=== PATIENT | male | born 1950 | race Caucasian/White ===

== ENCOUNTER 2022-02-11 19:04 | Emergency (ER) | payer MEDICARE, BC, SELFPAY ==
[2022-02-11 19:09] VITALS: BP 128/80; PULSE 107; RESP 20; TEMP 36.6; O2SAT 97; BMI 27.3
--- NOTE | 2022-02-11 20:26 | ED_ITS ---
HPI - Abdominal Pain General Chief Complaint: Abdominal Pain Stated Complaint: Stomach pain reflex Time Seen by Provider: 02/11/22 20:15 History of Present Illness HPI narrative: 72-year-old man presenting to the emergency department accompanied by his significant other with complaint of epigastric area burning pain. Does have a history of GERD and Mims's. Had vomiting starting 2 nights ago the proceeded over the course of the next day. That basically has resolved. Still though complicated by hiccups and this burning discomfort. He will now about every 15 minutes have a force upward that results in more sensation of acid. Was given by his doctor Ora and sucralfate but this has not seemed to make much of a difference. He is only mildly nauseated though at this point. No fever. No hematemesis. No diarrheal though stools were looser. No known sick contacts. Has not really vomited today. No alcohol intake recently. No cardiac history. Still has gallbladder. Anticipating traveling soon to [place]. Related Data Home Medications Medication Instructions Recorded Confirmed atorvastatin 20 mg tablet 20 mg PO HS 02/11/22 02/11/22 esomeprazole magnesium 20 mg 40 mg PO DAILY 02/11/22 02/11/22 capsule,delayed release (Nexium) lisinopril 2.5 mg tablet 2.5 mg PO DAILY 02/11/22 02/11/22 ondansetron 4 mg disintegrating 4 mg PO Q8H PRN 02/11/22 02/11/22 tablet sucralfate 1 gram tablet 1 g PO QID 02/11/22 02/11/22 tadalafil 5 mg tablet 5 mg PO PRN 02/11/22 02/11/22 tolterodine 4 mg capsule,extended 4 mg PO Q24H 02/11/22 02/11/22 release 24 hr Previous Rx's Medication Instructions Recorded lidocaine HCl 2 % mucosal solution 10 ml mucous membrane BID PRN 02/11/22 (Lidocaine Viscous) heartburn #100 mL Allergies Allergy/AdvReac Type Severity Reaction Status Date / Time No Known Drug Allergies Allergy Verified 02/11/22 19:16 Review of Systems Status of ROS Reports: 10 or more systems reviewed and unremarkable except as noted in History and below PFSH PFSH Social History Smoking Status: Light tobacco smoker What tobacco products do you use: cigars Do you use any of these nicotine containing products: None Second hand tobacco smoke exposure: No How often do you have a drink containing alcohol: 2-3 times a week How many standard drinks containing alcohol do you have on a typical day: 1 or 2 How often do you have six or more drinks on one occasion: Never AUDIT-C Alcohol total score: 3 Non-prescribed substance use: denies use Exam Narrative: Exam Narrative: Is pleasant. Calm. Lightly bearded. Oropharynx is moist Breathing easily. Lungs appear to be clear. Cardiovascular was regular rate and rhythm contrary to tachycardia on presentation. No murmur rub or gallop appreciated Abdomen tympanitic across the upper abdomen. Maybe mildly reproducible to palpation in the epigastrium. Otherwise abdomen is soft and nontender. Extremities are without edema. Well perfused peripherally. Const: Vital Signs, click to edit/add: Vital Signs - 24 hr 02/11/22 19:09 Temperature 97.9 F Pulse Rate [Right Pulse Oximeter] 107 H Respiratory Rate 20 Blood Pressure [Le ft Upper Arm] 128/80 Pulse Oximetry 97 Oxygen Delivery Me thod Room Air Documenting provider has reviewed patient's vital signs: yes Course Reevaluation(s) Reevaluation #1: Markedly improved after GI cocktail. No longer has the stomach acid. Did have 1 of those hiccups but it did not create the same symptoms. Time: 21:03 Vital Signs Vital signs: Initial Vital Signs Temperature 97.9 F 02/11/22 19:09 Temperature Source Temporal Artery Scan 02/11/22 19:09 Pulse Rate 107 H 02/11/22 19:09 Respiratory Rate 20 02/11/22 19:09 Blood Pressure 128/80 02/11/22 19:09 Blood Pressure Mean 96 02/11/22 19:09 Blood Pressure Position Sitting 02/11/22 19:09 Pulse Oximetry 97 02/11/22 19:09 Oxygen Delivery Method 02/11/22 19:09 Vital Signs Temperature 97.9 F 02/11/22 19:09 Pulse Rate 107 H 02/11/22 19:09 Respiratory Rate 20 02/11/22 19:09 Blood Pressure 128/80 02/11/22 19:09 Pulse Oximetry 97 02/11/22 19:09 Oxygen Delivery Method 02/11/22 19:09 Temperature 97.9 F 02/11/22 19:09 Pulse Rate 72 02/11/22 21:24 Respiratory Rate 16 02/11/22 21:24 Blood Pressure 132/71 02/11/22 21:24 Pulse Oximetry 98 02/11/22 21:24 Oxygen Delivery Method 02/11/22 21:24 MDM - Abdominal Pain MDM Narrative Medical decision making narrative: Given history I think it is reasonable to trial Zofran and GI cocktail. If this does not help to proceed further. Mr. Patterson is in agreement with this plan. Discharge Plan Discharge Clinical Impression: Heartburn, Hiccups Patient Disposition: Home, Self-Care Condition: Improved Additional Instructions: Consider taking the sucralfate over the next 2 weeks. Otherwise symptom relief can be accomplished with the antacid/anti-gas liquid that you can buy [id number] mixed one-to-one with viscous lidocaine as prescribed here today. You might first try the antacid/anti-gas liquid alone? I would not use this more than twice a day. If you need this though daily over the next week, I would follow up for re-evaluation. Return for intense and unremitting symptoms, repeated vomiting. Prescriptions: New lidocaine HCl [Lidocaine Viscous] 2 % solution 10 ml mucous membrane BID PRN (Reason: heartburn) Qty: 100 0RF Rx Instructions: mix 10 - 15 ml with equal amount of liquid antacid/antigas prn No Action atorvastatin 20 mg tablet 20 mg PO HS Label Comments: TAKE 1 TABLET BY MOUTH AT BEDTIME lisinopril 2.5 mg tablet 2.5 mg PO DAILY Label Comments: TAKE 1 TABLET BY MOUTH ONCE DAILY. esomeprazole magnesium [Nexium] 20 mg capsule,delayed release(DR/EC) 40 mg PO DAILY tadalafil 5 mg tablet 5 mg PO PRN Label Comments: TAKE 1 TABLET BY MOUTH EVERY DAY tolterodine 4 mg capsule,extended release 24hr 4 mg PO Q24H Label Comments: TAKE 1 CAPSULE (4 MG) BY MOUTH ONCE DAILY. ondansetron 4 mg tablet,disintegrating 4 mg PO Q8H PRN sucralfate 1 gram tablet 1 g PO QID Stand Alone Forms: MyHealth Info Instructions
[2022-02-11] MEDS: ONDANSETRON ODT 4 MG TAB PO (20:36)
[2022-02-11] MEDS: GI COCKTAIL (VISC LIDO/ANTACID) 30 ML PO (20:37)
--- OUTSIDE RECORDS SUMMARY | 2022-02-11 21:05 | XMS_ITS | Encounter Summary ---
:1950 Author Organization [facility] Address [address] [address] Care Team Providers Name Role Phone Pierre Evans MD Primary Care Provider Reason for Visit Reason Onset Date Comments Refill 02/22/2021 atorvastatin (LIPITO R) 20 MG tablet Encounter Details Date Type Department Care Team Description 02/22/2021 Refill Pierre Busch R efill (atorvastatin Medicine (LIPITOR) 20 MG tablet) [address] [place], [place] [address] [place] [id number] (Wo rk) Social History Tobacco Use Types Packs/Day Years Used Date Smoking Tobacco: Some Days Cigars Smokeless Tobacco: Never Comments: 1 a day Alcohol Use Standard Drinks/Week Comments Yes 5 (1 standard drink = 0.6 oz pure alcoho l) Sex Assigned at Date Recorded Not on file documented as of this encounter Nursing Notes Catherine Amos RN - 02/25/2021 6:20 AM CDT 90 day supply given per Emergency Refill Standing Order. Catherine Amos RN 02/25/2021, 6:19 AM Interface, Out Surescripts Prov Query - 02/22/2021 11:23 AM CDT atorvastatin (LIPITOR) 20 MG tablet Medication started: 12/06/2018 Last ordered by PIERRE EVANS: 12/16/2019 (434 days ago) QTY: 90, Refills: 0, Sig: take 1 tablet by mouth daily. (unchanged) -> An office visit is overdue (performed over 14 months ago, required every 12 months). Last qualifying visit: 12/16/2019 (with PIERRE EVANS) (A more recent visit (in Family Practice with IRENA SAMAYOA) was found) Next scheduled visit: None Powered by [employer] by [employer], Reference: [id number], 02/22/2021 11:23:05 AM CDT, Pool: PRCTR FP REFILL ([id number]) documented in this encounter Plan of Treatment Not on filedocumented as of this encounter Visit Diagnoses Diagnosis Hyperlipidemia, unspecified hyperlipidem ia type (HRC) documented in this encounter Care Teams Voice Network Engineer Relationship Specialty Start Date End Date Pierre Evans MD PCP - General 08/23/[address] [place], [place] [address] documented as of this encounter
--- OUTSIDE RECORDS SUMMARY | 2022-02-11 21:05 | XMS_ITS | Clinical Summary ---
:1950 Author Organization [facility] Address [address] [place] [address] Care Team Providers Name Role Phone Pierre Evans MD Primary Care Provider Source Comments You are receiving this document as you are listed as the primary care provider,follow-up provider, or the patient has been referred to you for consultation.This is in compliance with the Medicare and Medicaid EHR Incentive Program,which states Providers who transition their patient to another setting of careor provider of care or refers their patient to another provider of care shouldprovide summarycare record for each transition of care or referral. [facility] Allergies No known active allergies Medications Medication Sig Dispensed Refills Start Date End Date Status esomeprazole (NEXIUM) 20 Take 1 capsule 0 11/29/2015 Active MG capsule by mouth 2 times daily (before meals). Tadalafil (CIALIS) 10 MG Take 1 tablet 90 Tablet 0 12/26/2017 Active tabletIndications: 30-60 minutes Erectile dysfunction of prior to sexual organic origin activity. Multiple 0 Active Vitamins-Minerals (CENTRUM SILVER 50+MEN OR) tolterodine (DETROLLA) 4 2 10/21/2018 Active MG 24 hour release capsule Ascorbic Acid (VITAMIN 0 12/15/2019 Active C) 1000 MG tablet lisinopril (ZESTRIL) 2.5 TAKE ONE TABLET 90 Tablet 0 1 Active MG tabletIndications: BY MOUTH EVERY Essential hypertension DAY (HRC) atorvastatin (LIPITOR) Take 1 Tablet by 90 Tablet 0 02/25/2021 Active 20 MG tabletIndications: mouth daily. 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 Recurrent Essential hypertension 04/07/2010 GERD (gastroesophageal reflux disease) History of colonic polyps Overview: Repeat colonoscopy in 2016 ; Personal history of colonic polyps Resolved Problems Problem Noted Date Resolved Date Reflux esophagitis 04/05/2012 02/25/2020 Immunizations Name Administration Dates Next Due Influenza IIV4 (Quadrivalent) 0.5mL (60243) 02/03/2020 PCV13 (Prevnar) 05/23/2017 PPSV23 (Pneumovax) 12/05/2018 TDAP (ADACEL) 11/18/2010 Zoster (Zostavax) 02/06/2012 Zoster RZV (Shingrix) 03/02/2020 Family History Medical History Relation Name Comments Cancer Mother Colon Thyroid Disorder Sister 1 Relation Name Status Comments Father (Age 87) Mother (Age 77) Colon cancer Brother Alive Sister 1 Alive Sister 2 Alive Sister 3 Alive Social History Tobacco Use Types Packs/Day Years Used Date Smoking Tobacco: Some Days Cigars Smokeless Tobacco: Never Comments: 1 a day Alcohol Use Standard Drinks/Week Comments Yes 5 (1 standard drink = 0.6 oz pure alcoho l) Sex Assigned at Date Recorded Not on file Last Filed Vital Signs Vital Sign Reading Time Taken Comments Blood Pressure 128/73 02/25/2020 7:49 AM CDT Pulse 80 02/25/2020 7:49 AM CDT Temperature 36.8 ??C (98.3 ??F) 02/25/2020 7:49 AM CDT Respiratory Rate 14 06/26/2017 9:53 AM CHIEF GREEN OFFICER Oxygen Saturation 95% 04/01/2012 4:45 PM CHIEF GREEN OFFICER Inhaled Oxygen Concentration - - Weight 87.1 kg (192 lb) 02/25/2020 7:49 AM CDT Height 179.1 cm (5' 10.5) 02/25/2020 7:49 AM CDT Body Mass Index 27.16 02/25/2020 7:49 AM CDT Plan of Treatment Health Maintenance Due Date Last Done Comments COVID-19 Vaccine (#1) 1950 DTaP/Tdap/Td (2 - Tdap) 11/18/2020 11/18/2010 Medicare Annual Wellness 12/15/2020 12/16/2019, 12/05/2018 Visit Colonoscopy 03/21/2021 03/21/2016 (Completed), 02/07/2011 (Completed) Influenza (#1) 2022 02/03/2020 Cholesterol 12/15/2024 12/16/2019, 01/23/2019, 12/05/2018, Additional history exists Hep C Screening (Preventive Completed 12/25/2016 Services) Pneumococcal 65+ Yrs Completed 12/05/2018, 05/23/2017 Zoster/Shingles Completed 05/28/2020, 03/02/2020, 02/06/2012 HepA Aged Out No longer eligib le based on patient 's age to complete this topic HepB Aged Out No longer eligib le based on patient 's age to complete this topic Hib Aged Out No longer eligib le based on patient 's age to complete this topic IPV ([place]) Aged Out No longer eligib le based on patient 's age to complete this topic MCV4 Aged Out No longer eligib le based on patient 's age to complete this topic Insurance Payer Benefit Plan / Subscriber ID Effective Dates Phone Addre ss Type Group MEDICARE MEDICARE [id number] 2017-Guy [phone] M [facility] CARE t 67 BCBS BCBS BCBS [place] [id number] 2018-Heladio [phone] [address] [address] Medicare BLUE nt [address] [place] [address] [phone] [phone] [place] ([place]) [address] Corey Patterson Personal/Family Self 1950 [address] [phone] [place], [place] (Work) [address] Care Teams Cheese Cook Relationship Specialty Start Date End Date Pierre Evans MD PCP - General 08/23/[address] [place], [place] [address]
--- OUTSIDE RECORDS SUMMARY | 2022-02-11 21:05 | XMS_ITS | Encounter Summary ---
:1950 Author Organization [facility] Address [address] [address] Care Team Providers Name Role Phone Pierre Evans MD Primary Care Provider Reason for Visit Reason Onset Date Comments Refill 04/29/2021 lisinopril (ZESTRIL) 2.5 MG tablet; atorvastatin (LIPITOR) 20 MG tablet Encounter Details Date Type Department Care Team Description 04/29/2021 Refill [facility] Pierre Evans R efill (lisinopril Medicine (ZESTRIL) 2.5 MG tablet; [address] atorvastatin (LIPITOR) [address] [place], [place] [address] [address] MG tablet) [phone] [place] [address] (Wo rk) Social History Tobacco Use Types Packs/Day Years Used Date Smoking Tobacco: Some Days Cigars Smokeless Tobacco: Never Comments: 1 a day Alcohol Use Standard Drinks/Week Comments Yes 5 (1 standard drink = 0.6 oz pure alcoho l) Sex Assigned at Date Recorded Not on file documented as of this encounter Nursing Notes Pierre Evans MD - 05/03/2021 9:41 AM CST He has established care with a provider where he lives. TESTER Sherron Kirk - 05/03/2021 9:12 AM CST Medication Refill - Overdue for Visit Called patient, was: Successful in reaching patient We recently received a refill request for one of your medications. In order to ensure your medication is safe and effective, your clinician needs to see you at least yearly for an office visit. May I help you schedule that office visit? Patient is due for a(n): office visit Patient no longer receiving care at [facility]: Route to Refill [facility] Pool-PN (P [id number]) TESTER Delaney Mack RN - 05/03/2021 6:40 AM CST Further Assistance Needed on Refill from Government Professor Patient is overdue for Office visit. -> An office visit is overdue (performed 17 months ago, required every 12 months). -> Cr and K are overdue (performed 17 months ago, required every 12 months) Last qualifying visit: 12/16/2019 (with PIERRE EVANS) Next scheduled visit: None Cr: 1.16 mg/dL on 12/16/2019 K: 4.5 mEq/L on 12/16/2019 Please call patient to schedule a Office/Video Visit and document using .NATALIE. After attemptingto schedule patient: Please route to: Pierre Evans MD Requested Prescriptions Pending Prescriptions Disp Refills lisinopril (ZESTRIL) 2.5 MG tablet 90 Tablet 0 Sig: Take 1 Tablet by mouth daily. atorvastatin (LIPITOR) 20 MG tablet 90 Tablet 0 Sig: Take 1 Tablet by mouth daily. TESTER Missy, Taylor Surescripts Prov Query - 04/29/2021 9:38 AM CST atorvastatin (LIPITOR) 20 MG tablet Medication started: 12/06/2018 Last ordered by PIERRE EVANS: 02/25/2021 (63 days ago) QTY: 90, Refills: 0, Sig: take 1 tabletby mouth daily. (unchanged) -> An office visit is overdue (performed 17 months ago, required every 12 months). Last qualifying visit: 12/16/2019 (with PIERRE EVANS) (A more recent visit (in Family Practice with IRENA SAMAYOA) was found) Next scheduled visit: None Powered by [employer] by [employer], Reference: [id number], 04/29/2021 9:38:08 AM Marquis KELLY:JASPER FP REFILL ([id number]) lisinopril (ZESTRIL) 2.5 MG tablet Medication started: 12/23/2015 Last ordered by PIERRE EVANS: 02/21/2021 (67 days ago) QTY: 90, Refills: 0, Sig: take one tablet by mouth every day (changed but equivalent) -> An office visit is overdue (performed 17 months ago, required every 12 months). -> Cr and K are overdue (performed 17 months ago, required every 12 months) Last qualifying visit: 12/16/2019 (with PIERRE EVANS) (A more recent visit (in Family Practice with IRENA SAMAYOA) was found) Next scheduled visit: None Cr: 1.16 mg/dL on 12/16/2019 K: 4.5 mEq/L on 12/16/2019 Powered by [employer] by [employer], Reference: [id number], 04/29/2021 9:38:08 AM FOOD TESTER, Pool:PRCTR FP REFILL ([id number]) TESTER Interface, Out Wesabe Prov Query - 04/29/2021 9:38 AM CST The following lab order(s) may be associated with the following Patient Result Comment (Entered by Pierre Evans MD at 12/16/2019 5:54 PM): PROSTATIC SPECIFIC ANTIGEN(SCREEN) Excellent! Your labs all look great. TESTER documented in this encounter Plan of Treatment Not on filedocumented as of this encounter Visit Diagnoses Diagnosis Hypertension Unspecified essential hypertension Hyperlipidemia, unspecified hyperlipidem ia type (HRC) documented in this encounter Care Teams Resident Care Aide Relationship Specialty Start Date End Date Pierre Evans MD PCP - General 08/23/[address] [place] [address] documented as of this encounter
--- OUTSIDE RECORDS SUMMARY | 2022-02-11 21:05 | XMS_ITS | Encounter Summary ---
:1950 Author Organization [facility] Address [address], [place] [address] Care Team Providers Name Role Phone Pierre Evans MD Primary Care Provider Reason for Visit Reason Comments RESULTS, X-RAY Encounter Details Date Type Department Care Team Description 02/25/2020 Telephone Cnidy Cloud, RESULTS, X-RAY Medicine [facility] [address] [place] [address] [facility] [place] [address] [phone] (Wo rk) Social History Tobacco Use Types Packs/Day Years Used Date Smoking Tobacco: Some Days Cigars Smokeless Tobacco: Never Comments: 1 a day Alcohol Use Standard Drinks/Week Comments Yes 5 (1 standard drink = 0.6 oz pure alcoho l) Sex Assigned at Date Recorded Not on file documented as of this encounter Nursing Notes Cindy Aguilar PA-C - 02/25/2020 1:07 PM CDT Spoke with patient. Some arthritis in the thoracic spine. I am not certain that this is the cause ofyour abdominal pain. I suspect abdominal wall strain due to aggravation with using abdominal muscles. Please monitor symptoms. If they gradually improve and resolve over the next 1-2 weeks, no further evaluation is needed. If you continue to have ongoing or worsening pain, please contact the clinic. Patient verbalizes understanding and agreement plan. documented in this encounter Plan of Treatment Not on filedocumented as of this encounter Visit Diagnoses Not on filedocumented in this encounter Care Teams Asphalt Still Operator Relationship Specialty Start Date End Date Pierre Evans MD PCP - General 08/23/10 [address] [facility] [place] [address] documented as of this encounter
--- OUTSIDE RECORDS SUMMARY | 2022-02-11 21:05 | XMS_ITS | Encounter Summary ---
:1950 Author [facility] Address [address] [place] [address] Care Team Providers Name Role Phone Pierre Evans MD Primary Care Provider Reason for Visit Procedure/Equipment (Routine) - Incomplete Specialty Diagnoses / Procedures Referred By Contact Refer red To Contact Diagnoses Right sided abdominal pain Lauren, Cindy Barnett PA-C Procedures XR Thoracic Spine 2 Views XR Thoracic Spine 3 Views [address] [place] [address] Referral ID Status Reason Start Date Expiration Date Visits V isits Requested Authorized [id number] Incomplete 02/25/2020 05/26/2021 1 1 Encounter Details Date Type Department Care Team Description 02/25/2020 Ancillary Procedure Rice Armstrong, Right si ded Radiology Cindy Barnett PA-C abdominal pain [address] [place] [address] [place] [address] [phone] Social History Tobacco Use Types Packs/Day Years Used Date Smoking Tobacco: Some Days Cigars Smokeless Tobacco: Never Comments: 1 a day Alcohol Use Standard Drinks/Week Comments Yes 5 (1 standard drink = 0.6 oz pure alcoho l) Sex Assigned at Date Recorded Not on file documented as of this encounter Plan of Treatment Not on filedocumented as of this encounter Procedures Procedure Name Priority Date/Time Associated Diagnosis Comme nts XR THORACIC SPINE 2 Routine 02/25/2020 9:12 AM Right sided Re sults for this VIEWS CDT abdominal pain procedure are in the results section. documented in this encounter Results XR Thoracic Spine 2 Views (02/25/2020 9:12 AM CDT) Anatomical Region Laterality Modality Spine, T-Spine Digital Radiography Specimen (Source) Anatomical Collection Method Collection Time Re ceived Time Location / / Volume Laterality 02/25/2020 8:45 AM CDT Impressions 02/25/2020 9:17 AM CDT COMPARISON: ??Thoracic spine MRI from external institution 05/26/2015, chest radiographs from external institution 04/02/2009 FINDINGS: ??2 views were obtained. 12 th oracic type vertebral bodies. No compression fracture deformity is identified. Multilevel degenerative disc disease of eczk-nz-wtogbxgy severity. Procedure Note Gilberto Morse MD - 02/25/2020 IMPRESSION COMPARISON: Thoracic spine MRI from [facility] institution 05/26/2015, chest radiographs from external institution 04/02/2009 FINDINGS: 2 views were obtained. 12 thor acic type vertebral bodies. No compression fracture deformity is identified. Multilevel degenerative disc disease of cxnx-os-rzyasghz severity. Cindy Aguilar PA-C RAD GD documented in this encounter Visit Diagnoses Diagnosis Right sided abdominal pain Abdominal pain, unspecified site documented in this encounter Care Teams Rod Bending Machine Operator Relationship Specialty Start Date End Date Pierre Evans MD PCP - General 08/23/10 [address] [facility] [place] [address] documented as of this encounter
--- OUTSIDE RECORDS SUMMARY | 2022-02-11 21:05 | XMS_ITS | Encounter Summary ---
:1950 [facility] Address [address], [place] [address] Care Team Providers Name Role Phone Pierre Evans MD Primary Care Provider Reason for Visit Reason Comments Refill lisinopril (ZESTRIL) 2.5 MG tablet [Pharmacy Med Name: LISINOPRIL 2.5MG TABS] Encounter Details Date Type Department Care Team Description 02/18/2021 Refill Pierre Busch R efill (lisinopril Medicine (ZESTRIL) 2.5 MG tablet [address] bender [address] [facility] Ordering [Pharmacy Med Name: [place] [phone] LISINOPRIL 2.5MG TABS]) [phone] [place] [address] (Wo rk) Social History Tobacco Use Types Packs/Day Years Used Date Smoking Tobacco: Some Days Cigars Smokeless Tobacco: Never Comments: 1 a day Alcohol Use Standard Drinks/Week Comments Yes 5 (1 standard drink = 0.6 oz pure alcoho l) Sex Assigned at Date Recorded Not on file documented as of this encounter Nursing Notes Catherine Amos RN - 02/21/2021 2:23 PM CDT 90 day supply given per Emergency Refill Standing Order. Catherine Amos RN 02/21/2021, 2:23 PM Interface, Out [employer] Prov Query - 02/18/2021 10:12 AM CDT lisinopril (ZESTRIL) 2.5 MG tablet [Pharmacy Med Name: LISINOPRIL 2.5MG TABS] Medication started: 12/23/2015 Last ordered by PIERRE EVANS: 12/16/2019 (430 days ago) QTY: 90, Refills: 0, Sig: take 1 tablet by mouth daily. (changed but equivalent) -> An office visit is overdue (performed over 14 months ago, required every 12 months). -> Cr and K are overdue (performed over 14 months ago, required every 12 months) Last qualifying visit: 12/16/2019 (with PIERRE EVANS) (A more recent visit (in Family Practice with IRENA SAMAYOA) was found) Next scheduled visit: None Cr: 1.16 mg/dL on 12/16/2019 K: 4.5 mEq/L on 12/16/2019 Powered by [employer], Reference: [id number], 02/18/2021 10:12:28 AM CDT, Pool: CARLOS VALENTIN REFILL ([id number]) Interface, Out [employer] Prov Query - 02/18/2021 10:12 AM CDT The following lab order(s) may be associated with the following Patient Result Comment (Entered by Pierre Evans MD at 12/16/2019 6:54 PM): PROSTATIC SPECIFIC ANTIGEN(SCREEN) Excellent! Your labs all look great. 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
--- OUTSIDE RECORDS SUMMARY | 2022-02-11 21:05 | XMS_ITS | Encounter Summary ---
:1950 Author Organization [email or web address] Address [address] [place] [address] Care Team Providers Name Role Phone Pierre Evans MD Primary Care Provider Reason for Visit Procedure/Equipment (Routine) - Incomplete Specialty Diagnoses / Procedures Referred By Contact Refer red To Contact Diagnoses Tobacco use (HRC) Pierre Evans MD Procedures US Abd AAA Screening [email or web address] [place] [address] Referral ID Status Reason Start Date Expiration Date Visits V isits Requested Authorized [id number] Incomplete 12/16/2019 03/16/2021 1 1 Encounter Details Date Type Department Care Team Description 03/03/2020 Ancillary Procedure Park Pierre Avina Tob acco use; Alfonso Barnett MD Tobacco use Ultrasound [address] [email or web address] [address] [place] [address] [id number] Social History Tobacco Use Types Packs/Day Years [...] Name Priority Date/Time Associated Diagnosis Comme nts US ABD AAA Routine 03/03/2020 9:27 AM Tobacco use Results f or this SCREENING CDT procedure are i n the results section. documented in this encounter Results US Abd AAA Screening (03/03/2020 9:27 AM CDT) Anatomical Region Laterality Modality Abdomen Ultrasound Specimen (Source) Anatomical Collection Method Collection Time Re ceived Time Location / / Volume Laterality 03/03/2020 8:42 AM CDT Impressions 03/03/2020 10:05 AM CDT HISTORY: Evaluate for AAA. COMPARISON: ??None. FINDINGS: ?? Proximal abdominal aorta measures (AP x Width): 2.7 x 2.7 cm Mid abdominal aorta measures (AP x Width ): 2.1 x 2.0 cm Distal abdominal aorta measures (AP x Wi dth): 1.9 x 1.9 cm Right common iliac artery measures 1.4 c m in maximum caliber. Left common iliac artery measures 1.6 cm in maximum caliber. IMPRESSION: No evidence of abdominal aortic aneurys m. Borderline ectasia right common iliac artery and minimal ectasia left common iliac artery. PN Consensus recommendation for asymptom atic abdominal aortic aneurysm follow-up: 3.0-3.4 cm, recommend follow-up ultrasou nd in 2 years 3.5-4.4 cm, recommend follow-up ultrasou nd in 1 year 4.5-4.9 cm, recommend follow-up ultrasou nd in 6 months 5.0 cm or greater OR growth exceeding 5 mm in 6 months or 10 mm in 1 year, recommend consultation with vascular surgery Procedure Note Victor M Gonsalez MD - 03/03/2020Format ting of this note might be different from the original. IMPRESSION HISTORY: Evaluate for AAA. COMPARISON: None. FINDINGS: Proximal abdominal aorta measures (AP x Width): 2.7 x 2.7 cm Mid abdominal aorta measures (AP x Width ): 2.1 x 2.0 cm Distal abdominal aorta measures (AP x Wi dth): 1.9 x 1.9 cm Right common iliac artery measures 1.4 c m in maximum caliber. Left common iliac artery measures 1.6 cm in maximum caliber. IMPRESSION: No evidence of abdominal aortic aneurys m. Borderline ectasia right common iliac artery and minimal ectasia left common iliac artery. 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
--- OUTSIDE RECORDS SUMMARY | 2022-02-11 21:05 | XMS_ITS | Clinical Summary ---
:1950 Author Organization [facility] [place] [address] Care Team Providers Name Role Phone Teofilo Chau Primary Care Provider Allergies No known active allergies Medications Medication Sig Dispensed Refills Start Date End Date Status esomeprazole Take 20 mg by 0 02/14/2016 Ac tive magnesium (NEXIUM mouth 2 times 24HR) 20 mg TbEC daily. multivitamin Take 1 tablet 0 11/10/2019 Ac tive (MULTIPLE VITAMINS) by mouth once tablet daily. atorvastatin Take 1 Tablet 30 Tablet 11 06/16/2021 06/16/2022 A ctive (LIPITOR) 20 mg (20 mg) by tabletIndications: mouth at Mixed hyperlipidemia bedtime. lisinopriL (PRINIVIL; Take 1 Tablet 30 Tablet 11 07/04/202101/2023 Active ZESTRIL) 2.5 mg (2.5 mg) by tabletIndications: mouth once Essential daily. hypertension tolterodine (DETROL Take 1 Capsule 90 capsule. 3 10/25/2021 Active LA) 4 mg (4 mg) by mouth Extended-Release once daily. capsuleIndications: Urinary frequency tamsulosin (FLOMAX) Take 2 Capsules 30 Capsule 0 01/02/2022 Active 0.4 mg (0.8 mg) by capsuleIndications: mouth once Urinary frequency daily after a meal. tadalafiL (CIALIS) 5 once daily. 0 Active mg tablet sucralfate (CARAFATE) Take 1 Tablet 28 Tablet 0 02/10/2022 Active 1 gram (1 g) by mouth tabletIndications: four times Chronic GERD, Nausea daily before and vomiting, meals and at unspecified vomiting bedtime for 7 type days. ondansetron (ZOFRAN Place 1 Tablet 30 Tablet 0 02/10/2022 Active ODT) 4 mg (4 mg) on the disintegrating tongue every 8 tabletIndications: hours if needed Nausea and vomiting, for unspecified vomiting Nausea/Vomiting type . Active Problems Problem Noted Date History of colonic polyps 01/06/2021 Overview: Repeat colonoscopy in 2016 Personal history of colonic polyps Colonoscopy 05/2021 TA, SSA, repeat in 5 years GERD (gastroesophageal reflux disease) 01/06/2021 Thoracic degenerative disc disease 02/25/2020 Adenomatous colon polyp 03/23/2016 Overview: Colonoscopy 03/2016 polyp repeat in 5 ye ars Urinary frequency 02/14/2016 Urinary incontinence, urge 02/14/2016 Erectile dysfunction of organic origin 02/07/2013 Mims's esophagus 04/05/2012 Overview: EGD 05/2021 Mims's, repeat EGD in 5 ye ars Recurrent dislocation of lower leg joint 11/18/2010 Overview: Formatting of this note might be differe nt from the original. 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 Recurrent Essential hypertension 04/07/2010 Encounters Date Type Specialty Care Team Description 02/07/2022 Office Visit Teofilo Chau DO Back Pain ( Has been okay - worse in AM when gett ing up - improves throughout the day - has had a couple good day s ) 02/07/2022 Travel 01/09/2022 Refill Teofilo Chau DO Refill Requ est (Tamsulosin) 12/13/2021 Office Visit Teofilo Chau DO Follow Up ( back pain, worse in the morning, has be en doing PT) 12/13/2021 Travel 11/22/2021 Office Visit Teofilo Chau DO Back Pain ( Chronic low back pain - going to physic al therapy) 11/22/2021 Travel 11/18/2021 Refill Teofilo Chau DO Refill Requ est; TAMSULOSIN; Error-please oneal burk 11/18/2021 Refill Teofilo Chau, DO Refill Requ est (TAMSULOSIN HCL 0.4MG CAPSULE ) from Last 3 Months Immunizations Name Administration Dates Next Due COVID-19 vaccine (Pfizer-BioNTech 30mcg/0.3mL) 12YO+ 022 BIVALENT BOOSTER PF, MDV COVID-19 vaccine (Pfizer-BioNTech 30mcg/0.3mL) 12YO+ 022 SANTANA-SUCROSE PF, MDV COVID-19 vaccine (Pfizer-BioNTech 30mcg/0.3mL) PF, 1 MDV Influenza, IIV4 02/03/2020 Influenza, Inactivated AIIV4 (Age 65+ Years) Preserv 022 Free Pneumococcal Poly,23-Valent (Pneumovax) 12/05/2018 Pneumococcal conj 13-Valent (Prevnar 13) 05/23/2017 Td (Age >=7 Years) 03/10/2021 Tdap 11/18/2010 Zoster (Shingrix-RZV, recombinant) 05/28/2020, 03/02/2020 Zoster (Zostavax-ZVL, live) 02/06/2012 Family History Medical History Relation Name Comments Cancer-colon Maternal Uncle 2 brothers passe d away Cancer-colon Mother Relation Name Status Comments Maternal Uncle Mother Social History Tobacco Use Types Packs/Day Years Used Date Current Some Day Smoker Cigars Smokeless Tobacco: Never Used Tobacco Cessation: Ready to Quit: No; Co unseling Given: Yes Comments: occasional cigar, 1 x week - s ocial Alcohol Use Standard Drinks/Week Comments Yes 1 (1 standard drink = 0.6 oz pure alcoho l) socially with cigars Alcohol Habits Answer Date Recorded How often do you have a drink containing alcohol? Not asked How many drinks containing alcohol do you have on Not asked a typical day when you are drinking? How often do you have six or more drinks on one Not asked occasion? Comment: socially with cigars 02/14/2016 Sex Assigned at Date Recorded Not on file COVID-19 Exposure Response Date Recorded In the last 10 days, have you been in contact with No / Unsu re 02/07/2022 8:25 AM CDT someone who was confirmed or suspected to have Coronavirus/COVID-19? Obstetrics History Last Filed Vital Signs Vital Sign Reading Time Taken Comments Blood Pressure 133/76 02/07/2022 9:11 AM CDT Pulse 69 02/07/2022 9:11 AM CDT Temperature 37.1 ??C (98.8 ??F) 11/10/2019 9:54 AM CDT Respiratory Rate 14 06/05/2016 10:42 AM POLLUTION CONTROL CHEMIST Oxygen Saturation 97% 02/07/2022 9:11 AM CDT Inhaled Oxygen Concentration - - Weight 88 kg (194 lb) 02/07/2022 9:11 AM CDT Height 178.4 cm (5' 10.25) 10/25/2021 3:41 PM CDT Body Mass Index 27.64 10/25/2021 3:41 PM CDT Plan of Treatment Health Maintenance Due Date Last Done Comments Medicare Wellness for age 65+ 03/10/2022 03/10/2021 Depression screening for age 12+ 03/11/2022 03/11/2021, , 03/10/2021 BMI (ht and wt on same day) for 10/25/2022 10/25/2021, 02/19, age 18+ 02/14/2016 Lipids for age 45-75 03/10/2026 03/10/2021 Colonoscopy through age 75 05/26/2026 05/26/2021, , 03/21/2016, Additional history exists Tetanus booster 03/10/2031 03/10/2021, 11/18/2010 Tdap Completed 11/18/2010 Pneumococcal series for age 65+ Completed 12/05/2018, 07/2017 AAA screening age 55-77 Completed 03/03/2020 Zoster (shingles) series for age Completed 05/28/2020, , 50+ 02/06/2012 Hepatitis C screening for age Completed 03/10/2021 18-79 COVID-19 vaccine series Completed 02/07/2022, 10/25/2021, 03/23/2021, Additional history exists Influenza for age 65+ Completed 02/07/2022, 02/03/2020 Results Not on filefrom Last 3 Months Insurance Payer Benefit Plan / Subscriber ID Effective Dates Phone Addre ss Type Group BLUE CROSS MR BLUE CROSS [id number] 2018-Guy [address] [address] [place] [facility] [place] MR PB ONLY [id number] 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
--- OUTSIDE RECORDS SUMMARY | 2022-02-11 21:06 | XMS_ITS | Encounter Summary ---
:1950 Author Organization [employer] Address [address] [address] Care Team Providers Name Role Phone Pierre Evans MD Primary Care Provider Reason for Visit Reason Comments Back Pain Follow up. Encounter Details Date Type Department Care Team Description 05/23/2017 Office Visit Estelita Cruz Family Pierre Evans kim of right side (Primary Dx); Elvis Barnett MD Need for Streptococcus pneumoniae vaccin ation [address] [employer] [address] [place] [address] [phone] Social History Tobacco Use Types Packs/Day Years Used Date Smoking Tobacco: Some Days Cigars Smokeless Tobacco: Never Alcohol Use Standard Drinks/Week Comments Yes 5 (1 standard drink = 0.6 oz pure alcoho l) 1 drink / day Alcohol Habits Answer Date Recorded How often do you have a drink containing alcohol? Not asked How many drinks containing alcohol do you have on a Not aske d typical day when you are drinking? How often do you have six or more drinks on one Not asked occasion? Comment: 1 drink / day 01/09/2016 Sex Assigned at Date Recorded Not on file documented as of this encounter Last Filed Vital Signs Vital Sign Reading Time Taken Comments Blood Pressure - - Pulse 66 05/23/2017 8:58 AM [employer] Temperature - - Respiratory Rate - - Oxygen Saturation - - Inhaled Oxygen Concentration - - Weight 87.1 kg (192 lb) 05/23/2017 8:58 AM [employer] Height 177.8 cm (5' 10) 05/23/2017 8:58 AM [employer] Body Mass Index 27.55 05/23/2017 8:58 AM [employer] documented in this encounter Progress Notes Pierre Evans MD - 05/23/2017 12:00 PM CST NAME: COREY FRASER MR#: [id number] CSN: [id number] AUTHENTICATING CLINICIAN: Pierre Evans MD CONFIRM #: [id number] LOC: 2702 CLINIC PROGRESS NOTE DATE OF VISIT: 05/23/2017 : 1950 HISTORY OF PRESENT ILLNESS: Corey is a 67-year-old gentleman, who comes in today with a chief complaint of low back pain. His symptoms originally started about 30 years ago, when he fell down some steps and injured his low back. Hewas seen by a spine manipulation person in the [place] about 25 years ago and seemed to improve.Since then, he has had some intermittent back pains. Over the last few months, his back pain has been worse again. He said symptoms started again suddenly in March. He had a difficult time getting out of bed and was very sore in his low back, particularly on the right side. He saw a chiropractor, had some adjustments, but is really not improving. He is now having right-sided low back pain radiating into his right lateral and posterior thigh. The pain is constant. He has not noticed any numbness, tingling, or weakness in his lower extremities. He is not taking any medication for the pain. CURRENT MEDICATIONS: Reviewed and updated in [facility]. ALLERGIES: No known drug allergies. PHYSICAL EXAM: VITAL SIGNS: In [facility]. GENERAL: He is a 67-year-old male, in no distress. MUSCULOSKELETAL: He has normal deep tendon reflexes bilaterally. No vertebral tenderness. The pain is mainly in the right-sided low back and into the right buttock and right lateral thigh. Examination of the hip reveals good range of motion. Straight-leg raising was negative. ASSESSMENT: Right-sided sciatica more than 6 weeks, not responsive to daycare teacher. PLAN: We will get an MRI of his lumbar spine. He was given a prescription for prednisone 40 mg daily for 5days. He was also given Prevnar vaccine today. Will follow up after his MRI. AJT:KASHIF C: CONFIRM #: [id number] [employer] documented in this encounter Plan of Treatment Not on filedocumented as of this encounter Visit Diagnoses Diagnosis Sciatica of right side (HRC) - Primary Sciatica Need for Streptococcus pneumoniae vaccin ation documented in this encounter Care Teams Block Sorter Relationship Specialty Start Date End Date Pierre Evans MD PCP - General 08/23/10 [address] [facility] [place] [address] documented as of this encounter
--- OUTSIDE RECORDS SUMMARY | 2022-02-11 21:06 | XMS_ITS | Encounter Summary ---
:1950 Author Organization [employer] Address [address] [place] [address] Care Team Providers Name Role Phone Pierre Evans MD Primary Care Provider Reason for Referral Procedure/Equipment (Routine) - Incomplete Specialty Diagnoses / Procedures Referred By Contact Refer red To Contact Diagnoses Tobacco use (HRC) Pierre Evans MD Procedures US Abd AAA Screening [address] [place] 685 62 Referral ID Status Reason Start Date Expiration Date Visits V isits Requested Authorized [id number] Incomplete 12/16/2019 03/16/2021 1 1 Reason for Visit Reason Comments Annual Exam Medicare Annual Wellness Encounter Details Date Type Department Care Team Description 12/16/2019 Office Visit [facility] Pierre Evanser for Medicare annual wellness exam (Primary Dx); Elvis Barnett MD Well adult exam; [facility] [address] Hyperlipidemia, unspecified hyperlipidem ia type; [place], [place] [address] [address] Screening for diabetes melli tus; [phone] Screening for prostate cancer; [phone] Tobacco use (Work) Social History Tobacco Use Types Packs/Day Years [...] Sign Reading Time Taken Comments Blood Pressure 123/80 12/16/2019 8:59 AM CDT Pulse 67 12/16/2019 8:59 AM CDT Temperature - - Respiratory Rate - - Oxygen Saturation - - Inhaled Oxygen Concentration - - Weight 85.3 kg (188 lb) 12/16/2019 8:59 AM CDT Height 177.8 cm (5' 10) 12/16/2019 8:59 AM CDT Body Mass Index 26.98 12/16/2019 8:59 AM CDT documented in this encounter Patient Instructions Patient InstructionsGiJuliana loera LPN - 12/16/2019 9:00 AM CDT Annual Wellness Visit Summary Your care team is recommending the following tests, procedures or services. Some of these recommendations may not be fully covered by Medicare or your insurance. If you have questions, check with your insurance to determine coverage before completing these services. Health Maintenance Due Health Maintenance Due Topic Date Due ??? Zoster (2 of 3) 04/02/2012 ??? Advanced Directive 01/21/2017 ??? Abdominal Aortic Aneurysm (AAA) Screening 01/21/2017 ??? Medicare Annual Wellness Visit 12/06/2019 If your Medicare Welcome or Annual Wellness Visit is showing you are due in the above list, this will be updated after this visit. You had this completed today and are not due for another year. documented in this encounter Progress Notes Pierre Evans MD - 12/16/2019 9:00 AM CDT Medicare Annual Subjective/Historical: Corey Patterson is a 69 y.o. old male Chief Complaint Patient presents with ??? Annual Exam ??? Medicare Annual Wellness Current Concerns: None Mini-Cog Assessment Word Recall: 3 Clock Draw: 2 Total: 5 Additional Assessments Completed: PHQ-2 was administered today with a total score of: 1 Has a Health Care Directive on file? no. Pertinent Positives from Medicare Wellness Form: MEDICARE ANNUAL WELLNESS CONCERNS 12/16/2019 12/05/2018 Do you have concerns about your sexual health? - Yes How many servings of fruits and vegetables do you eat a day? 2 to 4 2 to 4 Do you have rugs (not carpet) in your home? Yes - (If a dash (-) appears in table above, this question was a pertinent positive during a previous Medicare Welcome or Annual Wellness Visit.) The patient's health maintenance, problem list, past medical history, past surgical history, family history, medication list, allergies, and immunization records have been reviewed and updated in the patient record as necessary. Observed Vitals: BP 123/80 (BP Location: Left Arm, BP Cuff Size: Regular) Pulse 67 Ht 5' 10 (1.778 m) Wt 188 lb (85.3 kg) BMI 26.98 kg/m?? Assessment/Plan (Z00.00) Encounter for Medicare annual wellness exam (primary encounter diagnosis) Plan: (I10) Hypertension Plan: lisinopril (ZESTRIL) 2.5 MG tablet, Electrolyte Panel, Creatinine (E78.5) Hyperlipidemia, unspecified hyperlipidemia type Plan: atorvastatin (LIPITOR) 20 MG tablet, Lipid Panel - LDLD If Trig High (Z13.1) Screening for diabetes mellitus Plan: Glucose (Z12.5) Screening for prostate cancer Plan: Prostatic Specific Antigen Screen (Z72.0) Tobacco use Plan: US Abd AAA Screening Counseling and education provided today includes proper nutrition and health habits, fall prevention, and for those items ordered above. Plan for future preventive services in Patient Instructions. Pierre Evans MD 12/16/2019, 9:05 AM Answers for HPI/ROS submitted by the patient on 12/15/2019 HYPERTENSION RFV How often do you exercise?: 3-5 times per week, 30 minutes or more Do you limit how much salt you eat and drink?: Yes CLINIC PHYSICAL DATE OF VISIT: December 16, 2019 : 1950 Corey is a 69 y.o. male who comes in today for a physical exam. REVIEW OF SYSTEMS: In general, he is doing well. He has had some low mood related to the stress of the COVID-19 pandemic. His work has been greatly affected. 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 Exercises by walking and biking. He smokes 5-10 small cigars per week. Drinks approximately 5 alcoholic beverages per week. He is . Family history: Reviewed and unchanged from 1 year ago PAST MEDICAL AND SURGICAL HISTORY: Reviewed and updated in [facility]. CURRENT MEDICATIONS: Reviewed and updated in [facility]. ALLERGIES: Reviewed and updated in [facility]. PHYSICAL EXAMINATION: VITAL SIGNS: In Epic. GENERAL: Well-appearing 69-year-old male in no distress HEAD, EYES, EARS, NOSE, AND THROAT: Within normal limits CHEST: Lungs CTA bilaterally HEART: RRR, no MGR ABDOMEN: Soft, NT ND no masses EXTREMITIES: without edema SKIN: Without rashes or suspicious moles ASSESSMENT: Well exam PLAN: We also did a Medicare annual wellness exam. He will set up a abdominal aortic aneurysm screen. We will check a cholesterol fractionation, blood glucose, electrolytes, creatinine and PSA. He was given refills on his lisinopril and atorvastatin. Encouraged to stop smoking. Encouraged to continue working on healthy exercise and diet. Pierre Evans MD 12/16/2019, 12:44 PM documented in this encounter Plan of Treatment Not on filedocumented as of this encounter Results US Abd AAA Screening [...] consultation with vascular surgery Pierre Evans MD RAD US Prostatic Specific Antigen Screen (12/16/2019 9:40 AM CDT) P athologist Signature Prostatic 2.0 0.0 - 4.0 12/16/2019 [facility] Specific ng/mL 2:57 PM CDT LABORATORY Antigen Specimen Anatomical Collection Method / Collection Time Recei anoop Time (Source) Location / Volume Laterality Blood Venipuncture / 12/16/2019 9:40 12/16/2019 9:40 Unknown AM CDT AM CDT Narrative [facility] - 12/16/2019 2:57 P M CDT [email or web address] PSA Chemiluminescent immunoas say is used. Results obtained with different test methods or kits cannot be used inte rchangeably. Pierre Evans MD LAB_1 Performing Organization Address [facility] Code Phon e Number [facility] [address] [place] [address] Creatinine (12/16/2019 9:40 AM CDT) P athologist Signature Creatinine 1.16 0.73 - 12/16/2019 [facility] 1.18 mg/dL 2:39 PM CDT LABORATORY GFR, Estimated >60 >60 12/16/2019 [facility] mL/min/1.7 2:39 PM CDT LABORATORY 3m2 Specimen Anatomical Collection Method / Collection Time Recei anoop Time (Source) Location / Volume Laterality Blood Venipuncture / 12/16/2019 9:40 12/16/2019 9:40 Unknown AM CDT AM CDT Pierre Evans MD LAB_1 Performing Organization Address [facility] Phon e Number [facility] [address] [place] [address] Electrolyte Panel (12/16/2019 9:40 AM CDT) athologist Signature Sodium 141 136 - 145 12/16/2019 [facility] mmol/L 2:39 PM CDT LABORATORY Potassium 4.5 3.5 - 5.1 12/16/2019 [facility] mmol/L 2:39 PM CDT LABORATORY Chloride 105 98 - 109 12/16/2019 [facility] mmol/L 2:39 PM CDT LABORATORY CO2 28 20 - 29 12/16/2019 [facility] mmol/L 2:39 PM CDT LABORATORY Anion Gap 8 7 - 16 12/16/2019 [facility] mmol/L 2:39 PM CDT LABORATORY Specimen Anatomical Collection Method / Collection Time Recei anoop Time (Source) Location / Volume Laterality Blood Venipuncture / 12/16/2019 9:40 12/16/2019 9:40 Unknown AM CDT AM CDT Pierre Evans MD LAB_1 Performing Organization Address [facility] Phon e Number [facility] [address] [place] [address] Glucose (12/16/2019 9:40 AM CDT) P athologist Signature Glucose 96 70 - 100 12/16/2019 [facility] mg/dL 2:39 PM CDT LABORATORY Comment: The given reference range is fo r the fasting state. Non-fasting reference range for glucose is 70 - 180 mg/dL. Hours Fasting 12 12/16/2019 2:39 PM CDT [facility] (PN) Specimen Anatomical Collection Method / Collection Time Recei anoop Time (Source) Location / Volume Laterality Blood Venipuncture / 12/16/2019 9:40 12/16/2019 9:40 Unknown AM CDT AM CDT Pierre Evans MD LAB_1 Performing Organization Address City/[facility] Phon e Number [facility] [address] [place] [address] [facility] [address], [place] [phone] (PN) [phone], [facility] (ABNORMAL) Lipid Panel - LDLD If Trig High (12/16/2019 9:40 AM CDT) Patholo gist Method Time Signature Cholesterol 132 0 - 199 12/16/2019 [facility] mg/dL 2:39 PM CDT LABORATORY Triglyceride 131 <=149 12/16/2019 [facility] mg/dL 2:39 PM CDT LABORATORY HDL Cholesterol 31 (L) >=40 12/16/2019 [facility] mg/dL 2:39 PM CDT LABORATORY LDL, Calculated 75 <130 12/16/2019 [facility] mg/dL 2:39 PM CDT LABORATORY Non HDL Chol, 101 mg/dL 12/16/2019 [facility] Calculated 2:39 PM CDT LABORATORY Cholesterol/HDL 4.3 12/16/2019 [facility] Ratio 2:39 PM CDT LABORATORY Hours Fasting 12 12/16/2019 [facility] 2:39 PM CDT LABORATORY (PN) Specimen Anatomical Collection Method / Collection Time Recei anoop Time (Source) Location / Volume Laterality Blood Venipuncture / 12/16/2019 9:40 12/16/2019 9:40 Unknown AM CDT AM CDT Pierre Evans MD LAB_1 Performing Organization Address City/[facility]/ZIP Code Phon e Number [facility] [address] [place] [address] [facility] [address] [phone] () [phone], [facility] documented in this encounter Visit Diagnoses Diagnosis Encounter for Medicare annual wellness e xam - Primary Well adult exam Routine general medical examination at a [facility] facility Hypertension Unspecified essential hypertension Hyperlipidemia, unspecified hyperlipidem ia type (HRC) Screening for diabetes mellitus Screening for prostate cancer Special screening for malignant neoplasm of prostate Tobacco use Tobacco use disorder Tobacco use Tobacco use disorder documented in this encounter Care Teams Fire Assistant Relationship Specialty Start Date End Date Pierre Evans MD PCP - General 08/23/10 [address] [facility] [address] [address] LEONEL RUTH, [place] [id number] documented as of this encounter
--- OUTSIDE RECORDS SUMMARY | 2022-02-11 21:06 | XMS_ITS | Encounter Summary ---
:1950 Author Organization [facility] Address [address] [place] [address] Care Team Providers Name Role Phone Pierre Evans MD Primary Care Provider Reason for Referral Consult/Transfer Care (Routine) - Closed Specialty Diagnoses / Procedures Referred By Contact Refer red To Contact Diagnoses Forgetfulness Cognitive decline Pierre Evans MD [facility] [address] NEUROPSYCHOLOGY [place] [phone] [place] [address] [address] Phone: Referral ID Status Reason Start Date Expiration Date Visits Requ ested Visits Authorized [id number] Closed 12/05/2018 03/05/2020 1 1 Scheduling Instructions If scheduling assistance is needed, niki carbone inquire with the medical office staff upon exiting your appointment or contact the ordering clinic for recommended locations. This recommended service/s may not be co devon by your insurance coverage. To find out your specific benefit coverage, please c all the number on your insurance card. Reason for Visit Reason Comments Annual Exam Welcome To Medicare Encounter Details Date Type Department Care Team Description 12/05/2018 Office Visit Pierre Busch ome to Medicare preventive visit (Primary Dx); Elvis Barnett MD Well adult exam; [address] [place] [address] tension; Drive Dr Forgetfulness; [place] [phone] [place] Cognitive decline; [phone] Screening cholesterol level; [phone] Screening for d iabetes mellitus; (Work) Screening for prostate cancer Social History Tobacco Use Types Packs/Day Years [...] Sign Reading Time Taken Comments Blood Pressure 118/66 12/05/2018 8:38 AM CDT Pulse 80 12/05/2018 8:38 AM CDT Temperature - - Respiratory Rate - - Oxygen Saturation - - Inhaled Oxygen Concentration - - Weight 88 kg (194 lb) 12/05/2018 8:38 AM CDT Height - - Body Mass Index 27.84 12/26/2017 8:04 AM CDT documented in this encounter Patient Instructions Patient InstructionsPierre Evans MD - 12/05/2018 8:30 AM CDT Annual Wellness Visit Summary Your care team is recommending the following tests, procedures or services. Some of these recommendations may not be fully covered by Medicare or your insurance. If you have questions, check with your insurance to determine coverage before completing these services. Health Maintenance Due Health Maintenance Due Topic Date Due ??? Medicare Welcome Visit 1950 ??? Zoster (2 of 3) 04/02/2012 ??? Advanced Directive 01/21/2017 ??? Pneumococcal (2 of 2 - PPSV23) 05/23/2018 If your Medicare Welcome or Annual Wellness Visit is showing you are due in the above list, this will be updated after this visit. You had this completed today and are not due for another year. documented in this encounter Progress Notes Pierre Evans MD - 12/05/2018 12:00 PM CDT NAME: COREY FRASER MR#: [id number] CSN: [id number] AUTHENTICATING CLINICIAN: Pierre Evans MD CONFIRM #: [id number] LOC: 2702 CLINIC PHYSICAL DATE OF VISIT: 12/05/2018 : 1950 Valerio is a 68-year-old gentleman who comes in today for a well exam. His biggest concern today is of cognitive decline. He feels like he is having trouble remembering things. He is more forgetful. He isconcerned that things seem to be worsening fairly rapidly. He has also had occasional issues with his bladder. He does see a urologist about that. He has a history of hypertension, which has generally been very well controlled. REVIEW OF SYSTEMS: The remainder of the complete review of systems is negative. 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 He is working now 4 days a week. He is . Exercises by walking and biking at least 3-4 times a week. He smokes 3 or 4 small cigars per week. Drinks approximately 5 alcoholic beverages per week. Feels like his diet has been healthy. Weight is stable. PAST MEDICAL HISTORY: Significant for hypertension and gastroesophageal reflux. He has had bilateral knee surgeries and blepharoplasty bilaterally. FAMILY HISTORY: Mother at age 77 of colon cancer. Father at age 87. Three sisters, one of whom has hypothyroidism. One brother was healthy. CURRENT MEDICATIONS: Include omeprazole 20 mg twice a day, lisinopril 2.5 mg daily, [place] as needed, multivitamin, and Detrol LA 4 mg daily. ALLERGIES: No known drug allergies. PHYSICAL EXAM: VITAL SIGNS: In Epic. GENERAL: A 68-year-old male in no distress. HEENT: Within normal limits. RESPIRATORY: Effort normal. LUNGS: CTA bilaterally. HEART: RRR. No MGR. ABDOMEN: Soft. NT/ND. No masses. EXTREMITIES: Without edema. SKIN: Without rashes or suspicious moles. ASSESSMENT: 1.Well exam. 2.Concerns about forgetfulness and cognitive decline. 3.Hypertension. PLAN: We will check a PSA, cholesterol fractionation, electrolytes, creatinine and blood glucose. He was given refills on his lisinopril. He was given a referral for neuropsychological testing. He was given a pneumonia vaccine today. AJT:MEDQ C: CONFIRM #: [id number] Pierre Evans MD - 12/05/2018 8:30 AM CDT Medicare Welcome Subjective/Historical: Corey Fraser is a 68 y.o. old male Chief Complaint Patient presents with ??? Annual Exam ??? Welcome To Medicare Current Concerns: Memory issues. Forgetful. Low energy. Mini-Cog Assessment Word Recall: 2 Clock Draw: 2 Total: 4 Additional Assessments Completed: PHQ-2 was administered today with a total score of: 3 Has a Health Care Directive on file? no. Pertinent Positives from Medicare Wellness Form: MEDICARE ANNUAL WELLNESS CONCERNS 12/05/2018 Do you have concerns about your sexual health? Yes How many servings of fruits and vegetables do you eat a day? 2 to 4 The patient's health maintenance, problem list, past medical history, past surgical history, family history, medication list, allergies, and immunization records have been reviewed and updated in the patient record as necessary. Observed Vitals: BP 118/66 (BP Location: Left Arm, BP Cuff Size: Regular) Pulse 80 Wt 194 lb (88 kg) BMI 27.84 kg/m?? Vision Results: Visual Acuity Screening Right eye Left eye Both eyes Without correction: With correction: 20/20 20/20 Assessment/Plan Hypertension - lisinopril (ZESTRIL) 2.5 MG tablet; Take 1 Tablet by mouth daily. Other orders - Multiple Vitamins-Minerals (CENTRUM SILVER 50+MEN OR) - tolterodine (DETROLLA) 4 MG 24 hour release capsule Counseling and education provided today includes proper nutrition and health habits, fall prevention, and for those items ordered above. Plan for future preventive services in Patient Instructions. Pierre Evans MD documented in this encounter Plan of Treatment Scheduled Referrals Name Type Priority Associated Diagnoses Order S chedule Neuropsychological Referral Routine Forgetfulness Ordered: Testing/Consult-Adult Cognitive decline 0 12/05/2018 documented as of this encounter Results Prostatic Specific Antigen Screen (12/05/2018 9:36 AM CDT) athologist Signature Prostatic 1.5 0.0 - 4.0 12/05/2018 [facility] Specific ng/mL 4:06 PM CDT LABORATORY Antigen Specimen Anatomical Collection Method / Collection Time Recei anoop Time (Source) Location / Volume Laterality Blood Venipuncture / 12/05/2018 9:36 12/05/2018 9:36 Unknown AM CDT AM CDT Narrative [facility] - 12/05/2018 4:06 P M CDT [employer] PSA Chemiluminescent immunoas say is used. Results obtained with different test methods or kits cannot be used inte rchangeably. Pierre Evans MD LAB_1 Performing Organization Address City/[facility] Phon e Number [facility] [address] [place] [address] Creatinine (12/05/2018 9:36 AM CDT) athologist Signature Creatinine 1.16 0.73 - 12/05/2018 [facility] 1.18 mg/dL 3:51 PM CDT LABORATORY GFR, Estimated >60 >60 12/05/2018 [facility] mL/min/1.7 3:51 PM CDT LABORATORY 3m2 GFR, Est If >60 >60 12/05/2018 [facility] mL/min/1.7 3:51 PM CDT LABORATORY Estonian 3m2 Specimen Anatomical Collection Method / Collection Time Recei anoop Time (Source) Location / Volume Laterality Blood Venipuncture / 12/05/2018 9:36 12/05/2018 9:36 Unknown AM CDT AM CDT Pierre Evans MD LAB_1 Performing Organization Address City/[facility] Phon e Number [facility] [address] [place] [address] Electrolyte Panel (12/05/2018 9:36 AM CDT) athologist Signature Sodium 141 136 - 145 12/05/2018 [facility] mmol/L 3:51 PM CDT LABORATORY Potassium 4.9 3.5 - 5.1 12/05/2018 [facility] mmol/L 3:51 PM CDT LABORATORY Chloride 105 98 - 109 12/05/2018 [facility] mmol/L 3:51 PM CDT LABORATORY CO2 27 20 - 29 12/05/2018 [facility] mmol/L 3:51 PM CDT LABORATORY Anion Gap 9 7 - 16 12/05/2018 [facility] mmol/L 3:51 PM CDT LABORATORY Specimen Anatomical Collection Method / Collection Time Recei anoop Time (Source) Location / Volume Laterality Blood Venipuncture / 12/05/2018 9:36 12/05/2018 9:36 Unknown AM CDT AM CDT Pierre Evans MD LAB_1 Performing Organization Address [facility]/ZIP [facility] Phon e Number [facility] [address] [place] [address] Glucose (12/05/2018 9:36 AM CDT) P athologist Signature Glucose 97 70 - 100 12/05/2018 [facility] mg/dL 3:51 PM CDT LABORATORY Comment: The given reference range is fo r the fasting state. Non-fasting reference range for glucose is 70 - 180 mg/dL. Hours Fasting 12 12/05/2018 3:51 PM CDT [facility](PN) Specimen Anatomical Collection Method / Collection Time Recei anoop Time (Source) Location / Volume Laterality Blood Venipuncture / 12/05/2018 9:36 12/05/2018 9:36 Unknown AM CDT AM CDT Pierre Evans MD LAB_1 Performing Organization Address [facility] Phon e Number [facility] [address] [place] [address] [place] [address] [place], [place] [phone] LABORATORY(PN) Drive [phone] (ABNORMAL) Lipid Panel - LDLD If Trig High (12/05/2018 9:36 AM CDT) Patholo gist Method Time Signature Cholesterol 228 (H) 0 - 199 12/05/2018 [facility] mg/dL 3:51 PM CDT LABORATORY Triglyceride 169 (H) <=149 12/05/2018 [facility] mg/dL 3:51 PM CDT LABORATORY HDL Cholesterol 35 (L) >=40 12/05/2018 [facility] mg/dL 3:51 PM CDT LABORATORY LDL, Calculated 159 (H) <130 12/05/2018 [facility] mg/dL 3:51 PM CDT LABORATORY Non HDL Chol, 193 (H) <=159 12/05/2018 [facility] Calculated mg/dL 3:51 PM CDT LABORATORY Cholesterol/HDL 6.5 12/05/2018 [facility] Ratio 3:51 PM CDT LABORATORY Hours Fasting 12 12/05/2018 LEON[address] R[place] 3:51 PM CDT LABORATORY(PN) Specimen Anatomical Collection Method / Collection Time Recei anoop Time (Source) Location / Volume Laterality Blood Venipuncture / 12/05/2018 9:36 12/05/2018 9:36 Unknown AM CDT AM CDT Pierre Evans MD LAB_1 Performing Organization Address City/State/ZIP Code Phon e Number [facility] [address] [place] [address] [address] [place] [phone] LAB[address]ORY(PN) Drive [id number] documented in this encounter Visit Diagnoses Diagnosis Welcome to Medicare preventive visit - [place] Well adult exam Routine general medical examination at a health care facility Hypertension Unspecified essential hypertension Forgetfulness Other general symptoms Cognitive decline Unspecified persistent mental disorders due to conditions classified elsewhere Screening cholesterol level Screening for lipoid disorders Screening for diabetes mellitus Screening for prostate cancer Special screening for malignant neoplasm of prostate documented in this encounter Care Teams Stave Block Roller Relationship Specialty Start Date End Date Pierre Evans MD PCP - General 08/23/[address] [place] [id number] documented as of this encounter
--- OUTSIDE RECORDS SUMMARY | 2022-02-11 21:06 | XMS_ITS | Encounter Summary ---
:1950 Author Organization [facility] Address [address] [place] [address] Care Team Providers Name Role Phone Pierre Evans MD Primary Care Provider Encounter Details Date Type Department Care Team Description 12/15/2014 Lab Visit Estelita bustamante Screening cholesterol level; [address] bender Screening for diabetes melli tus; [place] [address] Unspecified essential hypert ension [phone] Social History Tobacco Use Types Packs/Day Years Used Date Smoking Tobacco: Never Assessed Sex Assigned at Date Recorded Not on file documented as of this encounter Plan of Treatment Not on filedocumented as of this encounter Procedures Procedure Name Priority Date/Time Associated Diagnosis Comme nts GLUCOSE Routine 12/15/2014 4:55 PM Screening for Results for this CDT diabetes mellitus procedure are in the results section. LIPID PANEL AND Routine 12/15/2014 4:55 PM Screening cholester ol Results for this DIRECT LDL(IF CDT level procedure are in NEEDED) the results section. CREATININE / GFR Routine 12/15/2014 4:55 PM Unspecified essent ial Results for this CDT hypertension (HRC) procedure are in the results section. ELECTROLYTE PANEL Routine 12/15/2014 4:55 PM Unspecified essen tial Results for this CDT hypertension (HRC) procedure are in the results section. documented in this encounter Results Creatinine / GFR (12/15/2014 4:55 PM CDT) P athologist Signature Creatinine 1.2 0.4 - 1.3 HP CONVERSION Serum mg/dL Est GFR >60 >60 HP CONVERSION Am mL/min/1.7 3m2 Est GFR Non-Afr >60 >60 HP CONVERSION Am mL/min/1.7 3m2 Comment: Normal>60, moderate decrease 30 - 59, se colin decrease 15 - 29, renal failure <15 mL/min/1.73 m2 NOTE: ??Choose the eGFR result above donavon ropriate for the race of the patient. Specimen Anatomical Collection Method Collection Time Receive d Time (Source) Location / / Volume Laterality 12/15/2014 4:55 PM 5 9:21 CDT PM CDT Narrative HP CONVERSION - 12/15/2014 10:04 PM CDT Performed at [facility], [address] [place] [address] Pierre Evans MD LAB_1 Performing Organization Address [facility] Phon e Number HP CONVERSION Electrolyte Panel (12/15/2014 4:55 PM CDT) athologist Signature Sodium 140 137 - 147 HP CONVERSION mEq/L Potassium 4.3 3.5 - 5.2 HP CONVERSION mEq/L Chloride 105 98 - 110 HP CONVERSION mEq/L Bicarbonate 30 23 - 33 HP CONVERSION mmol/L Specimen Anatomical Collection Method Collection Time Receive d Time (Source) Location / / Volume Laterality 12/15/2014 4:55 PM 5 9:21 CDT PM CDT Narrative HP CONVERSION - 12/15/2014 10:04 PM CDT Performed at [facility], [address] [place], [place] [address] Pierre Evans MD LAB_1 Performing Organization Address [facility] Phon e Number HP CONVERSION GLUCOSE (12/15/2014 4:55 PM CDT) athologist Signature Lab Glucose 91 60 - 100 HP CONVERSION mg/dL Specimen Anatomical Collection Method Collection Time Receive d Time (Source) Location / / Volume Laterality 12/15/2014 4:55 PM 5 9:21 CDT PM CDT Narrative HP CONVERSION - 12/15/2014 10:04 PM CDT Performed at [facility], [address] [place] [id number] Pierre Evans MD LAB_1 Performing Organization Address City/State/ZIP Code Phon e Number HP CONVERSION (ABNORMAL) Lipid Panel and Direct LDL(If Needed) (12/15/2014 4:55 PM CDT) [facility] Method Time Signature Cholesterol 203 (H) 0 - 200 HP CONVERSION mg/dL Triglycerides 119 0 - 149 HP CONVERSION mg/dL HDL Cholesterol 39 (L) >39 mg/dL HP CONVERSION Cholesterol/HDL 5.2 HP CONVERSION Ratio Screen LDL Calculated 140 (H) 19 - 130 HP CONVERSION mg/dL Length Of Fast 10 HP CONVERSION Specimen Anatomical Collection Method Collection Time Receive d Time (Source) Location / / Volume Laterality 12/15/2014 4:55 PM 5 9:21 CDT PM CDT Narrative HP CONVERSION - 12/15/2014 10:04 PM CDT Performed at [address] [address] Pierre Evans MD LAB_1 Performing Organization Address City/[facility] Phon e Number HP CONVERSION documented in this encounter Visit Diagnoses Diagnosis Screening cholesterol level Screening for lipoid disorders Screening for diabetes mellitus Unspecified essential hypertension (HRC) Unspecified essential hypertension documented in this encounter Care Teams Petroleum Terminal Plant Operator Relationship Specialty Start Date End Date Pierre Evans MD PCP - General 08/23/10 [address] [facility] [place] [id number] documented as of this encounter
--- OUTSIDE RECORDS SUMMARY | 2022-02-11 21:06 | XMS_ITS | Encounter Summary ---
:1950 Author Organization [facility] Address [address] [place] [address] Care Team Providers Name Role Phone Pierre Evans MD Primary Care Provider Reason for Visit Reason Comments ERRONEOUS ENTRY Encounter Details Date Type Department Care Team Description 08/10/2015 Refill [facility] Vini Hinton MD ERRONEOUS ENTRY [address] [address] [place] [address] [phone] (Wo rk) Social History Tobacco Use Types Packs/Day Years Used Date Smoking Tobacco: Never Assessed Sex Assigned at Date Recorded Not on file documented as of this encounter Nursing Notes Leah Christensen - 08/10/2015 10:35 AM CDT Error CHANGER documented in this encounter Plan of Treatment Not on filedocumented as of this encounter Visit Diagnoses Not on filedocumented in this encounter Care Teams Front Office Clerk Relationship Specialty Start Date End Date Pierre Evans MD PCP - General 08/23/[address] [place] [address] documented as of this encounter
--- OUTSIDE RECORDS SUMMARY | 2022-02-11 21:06 | XMS_ITS | Encounter Summary ---
:1950 Author Organization [employer] Address [address] [place] [address] Care Team Providers Name Role Phone Pierre Evans MD Primary Care Provider Encounter Details Date Type Department Care Team Description 12/16/[address] [facility] Hyperlipidemia, unspecified hyperlipidemia type; [address] [facility] Stevo D rive Screening for diabetes paulo trivedi; [place], [place] [address] Hypertension; [phone] Screening for p rostate cancer Social History Tobacco Use Types Packs/Day [...] Name Priority Date/Time Associated Diagnosis Comme nts LIPID PANEL AND Routine 12/16/2019 9:40 Hyperlipidemia, Result s for this DIRECT LDL(IF AM CDT unspecified procedure are in NEEDED) hyperlipidemia type the resu lts section. CREATININE / GFR Routine 12/16/2019 9:40 Hypertension Results for this AM CDT procedure are i n the results section. PROSTATIC SPECIFIC Routine 12/16/2019 9:40 Screening for prost ate Results for this ANTIGEN(SCREEN) AM CDT cancer procedure ar e in the results section. ELECTROLYTE PANEL Routine 12/16/2019 9:40 Hypertension Results for this AM CDT procedure are i n the results section. GLUCOSE Routine 12/16/2019 9:40 Screening for diabetes Re sults for this AM CDT mellitus procedure are i n the results section. documented in this encounter Results Prostatic Specific Antigen Screen (12/16/2019 9:40 AM CDT) athologist Signature Prostatic 2.0 0.0 - 4.0 12/16/2019 [facility] Specific ng/mL 2:57 PM CDT LABORATORY Antigen Specimen Anatomical Collection Method / Collection Time Recei anoop Time (Source) Location / Volume Laterality Blood Venipuncture / 12/16/2019 9:40 12/16/2019 9:40 Unknown AM CDT AM CDT Narrative [facility] - 12/16/2019 2:57 P M CDT The [employer] PSA Chemiluminescent immunoas say is used. Results obtained with different test methods or kits cannot be used inte rchangeably. Pierre Evans MD LAB_1 Performing Organization Address City/[facility]/ZIP Code Phon e Number [facility] [address] [place] [address] Creatinine (12/16/2019 9:40 AM CDT) athologist Signature Creatinine 1.16 0.73 - 12/16/2019 [facility] 1.18 mg/dL 2:39 PM CDT LABORATORY GFR, Estimated >60 >60 12/16/2019 [facility] mL/min/1.7 2:39 PM CDT LABORATORY 3m2 Specimen Anatomical Collection Method / Collection Time Recei anoop Time (Source) Location / Volume Laterality Blood Venipuncture / 12/16/2019 9:40 12/16/2019 9:40 Unknown AM CDT AM CDT Pierre Evans MD LAB_1 Performing Organization Address [facility] Phon e Number [facility] [address] [place] [address] Electrolyte Panel (12/16/2019 9:40 AM CDT) athologist Signature Sodium 141 136 - 145 12/16/2019 [facility] mmol/L 2:39 PM CDT LABORATORY Potassium 4.5 3.5 - 5.1 12/16/2019 [facility] mmol/L 2:39 PM CDT LABORATORY Chloride 105 98 - 109 12/16/2019 [facility] mmol/L 2:39 PM CDT LABORATORY CO2 28 20 - 29 12/16/2019 [facility] mmol/L 2:39 PM CDT LABORATORY Anion Gap 8 7 - 16 12/16/2019 [facility] mmol/L 2:39 PM CDT LABORATORY Specimen Anatomical Collection Method / Collection Time Recei anoop Time (Source) Location / Volume Laterality Blood Venipuncture / 12/16/2019 9:40 12/16/2019 9:40 Unknown AM CDT AM CDT Pierre Evans MD LAB_1 Performing Organization Address City/[facility]/ZIP Code Phon e Number [facility] [address] [place] [address] Glucose (12/16/2019 9:40 AM CDT) P athologist Signature Glucose 96 70 - 100 12/16/2019 [facility] mg/dL 2:39 PM CDT LABORATORY Comment: The given reference range is fo r the fasting state. Non-fasting reference range for glucose is 70 - 180 mg/dL. Hours Fasting 12 12/16/2019 2:39 PM CDT [facility] ([place]) Specimen Anatomical Collection Method / Collection Time Recei anoop Time (Source) Location / Volume Laterality Blood Venipuncture / 12/16/2019 9:40 12/16/2019 9:40 Unknown AM CDT AM CDT Pierre Evans MD LAB_1 Performing Organization Address City/[facility]/ZIP Code Phon e Number [facility] [address] [place] [address] [place] [place] [facility] [address] [place], [place] ([place]) [phone], [facility] (ABNORMAL) Lipid Panel - LDLD If Trig High (12/16/2019 9:40 AM CDT) Patholo gist Method Time Signature Cholesterol 132 0 - 199 12/16/2019 [facility] mg/dL 2:39 PM CDT LABORATORY Triglyceride 131 <=149 12/16/2019 [facility] mg/dL 2:39 PM CDT LABORATORY HDL Cholesterol 31 (L) >=40 12/16/2019 [facility] mg/dL 2:39 PM CDT LABORATORY LDL, Calculated 75 <130 12/16/2019 [facility] mg/dL 2:39 PM CDT LABORATORY Non HDL Chol, 101 mg/dL 12/16/2019 [facility] Calculated 2:39 PM CDT LABORATORY Cholesterol/HDL 4.3 12/16/2019 [facility] Ratio 2:39 PM CDT LABORATORY Hours Fasting 12 12/16/2019 [place] 2:39 PM CDT LABORATORY ([place]) Specimen Anatomical Collection Method / Collection Time Recei anoop Time (Source) Location / Volume Laterality Blood Venipuncture / 12/16/2019 9:40 12/16/2019 9:40 Unknown AM CDT AM CDT Pierre Evans MD LAB_1 Performing Organization Address City/State/ZIP Code Phon e Number [facility] [address] [place] [address] [facility] [address] ([place]) [phone], [facility] documented in this encounter Visit Diagnoses Diagnosis Hyperlipidemia, unspecified hyperlipidem ia type (HRC) Screening for diabetes mellitus Hypertension Unspecified essential hypertension Screening for prostate cancer Special screening for malignant neoplasm of prostate documented in this encounter Care Teams Manager Fraud Relationship Specialty Start Date End Date Pierre Evans MD PCP - General 08/23/10 [address] [place] [id number] documented as of this encounter
--- OUTSIDE RECORDS SUMMARY | 2022-02-11 21:06 | XMS_ITS | Encounter Summary ---
:1950 Author Organization [facility] [employer] Address [address], [place] [address] Care Team Providers Name Role Phone Pierre Evans MD Primary Care Provider Reason for Visit Reason Comments ERRONEOUS ENTRY Encounter Details Date Type Department Care Team Description 05/23/2017 Telephone [facility] [place] [facility] Pierre Luciano MD ERRONEOUS ENTRY [address] [place] [address] [place] [address] [place] [address] [phone] (Wo rk) Social History Tobacco Use Types [...] documented as of this encounter Nursing Notes Crytsal Ivy - 05/23/2017 3:56 PM CST Error EDO WORKER documented in this encounter Plan of Treatment Not on filedocumented as of this encounter Visit Diagnoses Not on filedocumented in this encounter Care Teams National Sales Relationship Specialty Start Date End Date Pierre Evans MD PCP - General 08/23/[address] [place] [address] documented as of this encounter
--- OUTSIDE RECORDS SUMMARY | 2022-02-11 21:06 | XMS_ITS | Encounter Summary ---
:1950 Author Organization [facility] Address [address], [place] [address] Care Team Providers Name Role Phone Pierre Evans MD Primary Care Provider Reason for Visit Reason Onset Date Comments Refill 11/06/2016 Encounter Details Date Type Department Care Team Description 11/06/2016 Refill [facility] Pierre Evans MD Refill [address] bender [address] [place] [address] [facility] [place] [address] [phone] (Wo rk) Social History Tobacco Use Types Packs/Day Years Used Date Smoking Tobacco: Former Pipe Cigars Smokeless Tobacco: Never Alcohol Use Standard Drinks/Week Comments Yes 0 (1 standard drink = 0.6 oz pure [...] documented as of this encounter Nursing Notes Corey Frederick LPN - 11/08/2016 8:56 AM CDT Spoke to Corey, mailed prescription as he requested. Pierre Evans MD - 11/07/2016 5:24 PM CDT Printed. Please notify pt. 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 Marti Gay, RN - 11/07/2016 4:45 PM CDT Reason for Call: Medication Request. Next Steps: Review pended order for accuracy. Sign. Route to appropriate person/pool. Caller IS expecting a call back from Care Team. Additional Information: Pt requesting written rx for Cialis that he will forward to pharmacy of his choice. Last filled 11/29/15 #90 with no refills. Danya Lindsay - 11/06/2016 4:02 PM CDT Patient is requesting a written prescription for this medication. Please advise. 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
--- OUTSIDE RECORDS SUMMARY | 2022-02-11 21:06 | XMS_ITS | Encounter Summary ---
:1950 Author Organization [facility] Address [address], [place] [address] Care Team Providers Name Role Phone Pierre Evans MD Primary Care Provider Reason for Visit Reason Comments Orders Needed Encounter Details Date Type Department Care Team Description 05/23/2017 Telephone Antonina Busch MD Orders Needed Medicine [address] yulia [facility] [place] [address] [place] [address] [phone] Social History Tobacco Use Types Packs/Day Years [...] documented as of this encounter Nursing Notes Dorothea Callahan - 05/23/2017 3:16 PM CST Contacted pt. Explained that fax has not been going thru to number given to DA. Now have a differentnumber and faxed again. Told pt to wait about a5 minutes and order should have been received by the [facility]. PRESS FEEDER Roya Mac - 05/23/2017 2:52 PM CST Pt states he was told that the order for Lumbar MRI would be faxed to [facility]. Pt called and [facility] does not have it. Please advise. PRESS FEEDER documented in this encounter Plan of Treatment Not on filedocumented as of this encounter Visit Diagnoses Not on filedocumented in this encounter Care Teams Rolloff Truck Driver Relationship Specialty Start Date End Date Pierre Evans MD PCP - General 08/23/10 [address] [facility] [place] [address] documented as of this encounter
--- OUTSIDE RECORDS SUMMARY | 2022-02-11 21:06 | XMS_ITS | Encounter Summary ---
:1950 Author Organization [employer] Address [address] [place] [address] Care Team Providers Name Role Phone Pierre Evans MD Primary Care Provider Reason for Visit Reason Comments Annual Exam Encounter Details Date Type Department Care Team Description 12/25/2016 Office Visit [facility] Ruth Family Pierre Evans Well adult exam (Primary Dx); Elvis Barnett MD Hypertension; [address] john cholesterol level; Drive Dr Screening for diabetes mellitus; STACEY Damico [phone] [place] ID Need for hepatitis C screeni ng test [phone] [id number] Social History Tobacco Use Types Packs/Day Years [...] Sign Reading Time Taken Comments Blood Pressure 130/81 12/25/2016 8:11 AM CDT Pulse 68 12/25/2016 8:11 AM CDT Temperature - - Respiratory Rate - - Oxygen Saturation - - Inhaled Oxygen Concentration - - Weight 89.8 kg (198 lb) 12/25/2016 8:11 AM CDT Height 177.8 cm (5' 10) 12/25/2016 8:11 AM CDT Body Mass Index 28.41 12/25/2016 8:11 AM CDT documented in this encounter Progress Notes Pierre Evans MD - 12/25/2016 12:00 PM CDT NAME: COREY FRASER MR#: [id number] CSN: [id number] AUTHENTICATING CLINICIAN: Pierre Evans MD CONFIRM #: [id number] LOC: 2702 CLINIC PHYSICAL DATE OF VISIT: 12/25/2016 : 1950 Corey is a 66-year-old gentleman who comes in today for a well exam. He has a few concerns, which wereaddressed today. Nothing that is really bothering him much. He does have some frequent voiding at night, typically twice a day. Also has some urinary urge incontinence. He does see a urologist and is on Myrbetriq with only minimal improvement. He has had some history of heartburn. Has a history of Mims's esophagus. May be due for an endoscopy now. COMPLETE REVIEW OF SYSTEMS: The remainder of the complete review of systems is negative. 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 He is . Has 2 grown children. Exercises about 3 to 5 times a week by riding his bike and walking. He smokes 4 small cigars per week. Drinks approximately 5 alcoholic beverages per week. Feels like his diet have been healthy. Weight has been stable. PAST MEDICAL HISTORY: Significant for a history of colon polyps. He had a colonoscopy last year, and is due for another colonoscopy in either 2019 or 2020. PAST SURGICAL HISTORY: Reviewed and updated in [facility]. FAMILY HISTORY: Mother at age 77 of colon cancer. Father at age 87. He has 3 living sisters, one of whom has hypothyroidism. One brother who is healthy. CURRENT MEDICATIONS: Include lisinopril 2.5 mg daily, Myrbetriq 50 mg daily, and Cialis as needed. He also takes vitamin B complex. ALLERGIES: He has no known drug allergies. PHYSICAL EXAM: VITAL SIGNS: In [facility]. GENERAL: A well-appearing 66-year-old male in no distress. HEENT: Within normal limits. RESPIRATORY: Effort normal. LUNGS: CTA bilaterally. HEART: RRR. No M/G/R. ABDOMEN: Soft. NT, ND. No masses. GENITOURINARY: Normal male genitalia. No testicular mass or hernias. SKIN: Without rashes or suspicious moles. ASSESSMENT: Well exam. PLAN: Will check a cholesterol fractionation, blood glucose, electrolytes and creatinine. Will also check hepatitis C screen. He was given refills on his lisinopril. He will check with his gastroenterologistto see when he needs his next colonoscopy and endoscopy. AJT:KASHIF C: CONFIRM #: [id number] documented in this encounter Plan of Treatment Not on filedocumented as of this encounter Results Hepatitis C Virus Bren with Reflex (12/25/2016 9:01 AM CDT) [facility] gist Method Time Signature Hepatitis C Nonreactive Nonreactive PN SOFT Antibody Specimen Anatomical Collection Method Collection Time Receive d Time (Source) Location / / Volume Laterality 12/25/2016 9:01 AM 7 CDT 12:08 PM CDT Narrative PN SOFT - 12/25/2016 12:51 PM CDT Performed at [place] [id number] CLIA number [id number] Pierre Evans MD LAB_1 Performing Organization Address City/State/ZIP Code Phon e Number PN SOFT [address] [place] [phone] (ABNORMAL) Glucose (12/25/2016 9:01 AM CDT) athologist Signature Lab Glucose 103 (H) 70 - 100 PN SOFT mg/dL Comment: The stated glucose range is for the fast ing state. Non-fasting glucose range is 70-180 mg/d L Specimen Anatomical Collection Method Collection Time Receive d Time (Source) Location / / Volume Laterality 12/25/2016 9:01 AM 7 CDT 12:09 PM CDT Narrative PN SOFT - 12/25/2016 12:29 PM CDT Performed at [place] [id number] [place] [address] CLIA number [id number] Pierre Evans MD LAB_1 Performing Organization Address [facility] Phon e Number PN SOFT [address] [place] [address] [phone] (ABNORMAL) Lipid Panel - LDLD If Trig High (12/25/2016 9:01 AM CDT) [facility] gist Method Time Signature Cholesterol 200 (H) 0 - 199 PN SOFT mg/dL Triglycerides 102 4 - 149 PN SOFT mg/dL HDL Cholesterol 33 (L) >39 mg/dL PN SOFT Cholesterol/HDL 6.1 PN SOFT Ratio Screen LDL Calculated 147 (H) 19 - 130 PN SOFT mg/dL Length Of Fast 12.0 PN SOFT Specimen Anatomical Collection Method Collection Time Receive d Time (Source) Location / / Volume Laterality 12/25/2016 9:01 AM 7 CDT 12:09 PM CDT Narrative PN SOFT - 12/25/2016 12:29 PM CDT Performed at [place] [id number] [place] [address] CLIA number [id number] Pierre Evans MD LAB_1 Performing Organization Address [facility] Phon e Number PN SOFT [address] [place] [address] Creatinine (12/25/2016 9:01 AM CDT) athologist Signature Creatinine Serum 1.17 0.73 - PN SOFT 1.18 mg/dL Est GFR >60 >60 PN SOFT Am mL/min/1.7 3m2 Est GFR Non-Afr >60 >60 PN SOFT Am mL/min/1.7 3m2 Comment: Normal>60, moderate decrease 30 - 59, se colin decrease 15 - 29, renal failure <15 mL/min/1.73 m2 NOTE: ??Choose the eGFR result above donavon ropriate for the race of the patient. Specimen Anatomical Collection Method Collection Time Receive d Time (Source) Location / / Volume Laterality 12/25/2016 9:01 AM 7 CDT 12:09 PM CDT Narrative PN SOFT - 12/25/2016 12:29 PM CDT Performed at [address] [address] CLIA number [id number] Pierre Evans MD LAB_1 Performing Organization Address [facility] Phon e Number PN SOFT [address] [place] [address] Electrolyte Panel (12/25/2016 9:01 AM CDT) athologist Signature Sodium 140 136 - 145 PN SOFT mmol/L Potassium 4.5 3.5 - 5.2 PN SOFT mmol/L Chloride 106 98 - 109 PN SOFT mmol/L CO2 28 22 - 31 PN SOFT mmol/L Specimen Anatomical Collection Method Collection Time Receive d Time (Source) Location / / Volume Laterality 12/25/2016 9:01 AM 7 CDT 12:09 PM CDT Narrative PN SOFT - 12/25/2016 12:29 PM CDT Performed at [facility], [address] [place] [address] CLIA number [id number] Pierre Evans MD LAB_1 Performing Organization Address [facility] Phon e Number PN SOFT [address] [place] [address] documented in this encounter Visit Diagnoses Diagnosis Well adult exam - Primary Routine general medical examination at a health care facility Hypertension Unspecified essential hypertension Screening cholesterol level Screening for lipoid disorders Screening for diabetes mellitus Need for hepatitis C screening test Special screening examination for other specified viral diseases Hypertension Unspecified essential hypertension Screening cholesterol level Screening for lipoid disorders Screening for diabetes mellitus Need for hepatitis C screening test Special screening examination for other specified viral diseases documented in this encounter Care Teams Pharmaceutical Sales Relationship Specialty Start Date End Date Pierre Evans MD PCP - General 08/23/10 [address] [facility] [place] [address] documented as of this encounter
--- OUTSIDE RECORDS SUMMARY | 2022-02-11 21:06 | XMS_ITS | Encounter Summary ---
:1950 Author Organization [employer] Address [address], [place] [address] Care Team Providers Name Role Phone Pierre Evans MD Primary Care Provider Reason for Visit Reason Comments Annual Exam Encounter Details Date Type Department Care Team Description 02/10/2014 Office Visit [facility] Cruz Family Pierre Evans Well adult exam (Primary Dx); Elvis Barnett MD Unspecified essential hypertension; [address] [place] tt's esophagus; Drive Dr Screening for lipoid disorders; STACEY Damico [address] [place] Screening for diabetes melli tus; [phone] Special screening for malignant neoplasm of prostate Social History Tobacco Use Types Packs/Day Years Used Date Smoking Tobacco: Never Assessed Sex Assigned at Date Recorded Not on file documented as of this encounter Last Filed Vital Signs Vital Sign Reading Time Taken Comments Blood Pressure 107/61 02/10/2014 8:53 AM CDT Pulse 60 02/10/2014 8:53 AM CDT Temperature - - Respiratory Rate - - Oxygen Saturation - - Inhaled Oxygen Concentration - - Weight 87.5 kg (193 lb) 02/10/2014 8:53 AM CDT Height 177.8 cm (5' 10) 02/10/2014 8:53 AM CDT Body Mass Index 27.69 02/10/2014 8:53 AM CDT documented in this encounter Progress Notes Pierre Evans MD - 02/10/2014 9:37 AM CDT Progress Notes signed by Pierre Evans MD at 02/12/14 1418 Author: Pierre Evans MD Service: (none) Author Type: Physician Filed: 02/12/14 1418 Note Time: 02/10/14 1313 Status: Signed Police Service Technician: Pierre Evans MD (Physician) NAME: COREY FRASER MR#: [id number] CSN: [id number] AUTHENTICATING CLINICIAN: Pierre Evans MD CONFIRM #: [id number] LOC: 2702 CLINIC PHYSICAL DATE OF VISIT: 02/10/2014 : 1950 Corey is a 64-year-old gentleman who comes in today for a well exam. He has a few concerns which were addressed today. He has had some issues with overactive bladder and is on oxybutynin for that. Symptoms are tolerable, but still not perfect. Has a history of Mims's esophagus and gets occasional heartburn symptoms. He has some mild ringing in his ears and some mild fatigue. The remainder of a complete review of systems is negative. 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 He is . Has 2 children and 2 grandchildren. Exercises by walking regularly. Does not use tobacco. Drinks approximately 5 alcoholic beverages per week. Feels like his diet has been healthy. Weight has remained stable. PAST MEDICAL HISTORY: Significant for hypertension, gastroesophageal reflux, and Mims's esophagus. He is up to date on his colonoscopy. SURGERIES: Only knee arthroscopy on both knees. FAMILY HISTORY: Mother at age 77 of colon cancer. Father at age 87. He has 3 sisters and 1 brother. One ofhis sisters has low thyroid. CURRENT MEDICATIONS: Reviewed and updated in [facility]. ALLERGIES: No known drug allergies. PHYSICAL EXAM: VITAL SIGNS: In [facility]. GENERAL: A well-appearing, 64-year-old male in no distress. HEAD, EYES, EARS, NOSE, AND THROAT: Within normal limits. Respiratory effort normal. LUNGS: CTA bilaterally. HEART: RRR. No MGR. ABDOMEN: Soft, NT, ND. No masses. GENITOURINARY EXAM: Normal male genitalia. No testicular mass or hernias. SKIN: Without rashes or suspicious moles. RECTAL EXAMINATION: Normal prostate. ASSESSMENT: Well exam. PLAN: Will check a cholesterol fractionation, blood glucose, electrolytes, and PSA. He was given refills on his lisinopril. Will follow up in our clinic p.r.nEzio DEVIT:KASHIF C: CONFIRM #: [id number] documented in this encounter Plan of Treatment Not on filedocumented as of this encounter Visit Diagnoses Diagnosis Well adult exam - Primary Routine general medical examination at a [facility] care facility Unspecified essential hypertension (HRC) Unspecified essential hypertension Mims's esophagus Screening for lipoid disorders Screening for diabetes mellitus Special screening for malignant neoplasm of prostate documented in this encounter Care Teams Metal Polisher And Buffer Apprentice Relationship Specialty Start Date End Date Pierre Evans MD PCP - General 08/23/10 [address] [facility] [place] [address] documented as of this encounter
--- OUTSIDE RECORDS SUMMARY | 2022-02-11 21:06 | XMS_ITS | Encounter Summary ---
:1950 Author Organization [employer] Address [address], [place] [address] Care Team Providers Name Role Phone Pierre Evans MD Primary Care Provider Reason for Visit Reason Comments Annual Exam Encounter Details Date Type Department Care Team Description 12/23/2015 Office Visit Estelita Ruth Family Pierre Evans [facility] adult exam (Primary Dx); Elvis Barnett MD Disorder of bladder; [address] john cholesterol level; Drive Dr Screening for diabetes mellitus; STACEY Damico [address] [place] Screening for prostate cance r; [phone] Essential hypertension; [phone] Bladder spasm (Work) Social History Tobacco Use Types Packs/Day Years Used Date Smoking Tobacco: Never Assessed Sex Assigned at Date Recorded Not on file documented as of this encounter Last Filed Vital Signs Vital Sign Reading Time Taken Comments Blood Pressure 119/75 12/23/2015 8:11 AM CDT Pulse 72 12/23/2015 8:11 AM CDT Temperature - - Respiratory Rate - - Oxygen Saturation - - Inhaled Oxygen Concentration - - Weight 88 kg (194 lb) 12/23/2015 8:11 AM CDT Height 177.8 cm (5' 10) 12/23/2015 8:11 AM CDT Body Mass Index 27.84 12/23/2015 8:11 AM CDT documented in this encounter Progress Notes Pierre Evans MD - 12/23/2015 8:42 AM CDT Progress Notes signed by Pierre Evans MD at 12/23/15 1428 Author: Pierre Evans MD Service: (none) Author Type: Physician Filed: 12/23/15 2691 Note Time: 12/23/15 1350 Status: Signed Computer Terminal Operator: Pierre Evans MD (Physician) NAME: COREY FRASER MR#: [id number] CSN: [id number] AUTHENTICATING CLINICIAN: Pierre Evans MD CONFIRM #: [id number] LOC: 2702 CLINIC PHYSICAL DATE OF VISIT: 12/23/2015 : 1950 Patient is a 65-year-old gentleman who comes in today for a well exam. His biggest concern today is of some bladder spasms and leakage of urine when he feels the urge to void. He is on medication, but is not controlling his symptoms. REVIEW OF SYSTEMS: The remainder of a complete review is negative. 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 He is , has 2 grown children. Exercises about 3-5 times a week. He smokes 3 cigars per week. Drinks approximately 5 alcoholic beverages per week. Feels like his diet has been healthy. Weight has remained stable. PAST MEDICAL AND SURGICAL HISTORY: Review[facility]. FAMILY HISTORY: Mother at age 77 of colon cancer. Father at age 87 of natural causes. He has 3 sisters, one of whom has low thyroid. One brother who is healthy. CURRENT MEDICATIONS: Reviewed and updated in [facility]. ALLERGIES: No known drug allergies. PHYSICAL EXAM: VITAL SIGNS: In [employer]. GENERAL: A 65-year-old male in no distress. HEAD, EYES, EARS, NOSE, THROAT: Within normal limits. RESPIRATORY: Effort normal. Lungs CTA bilaterally. HEART: RRR. No M/G/R. ABDOMEN: Soft, NT, ND. No masses. GENITOURINARY: Normal male genitalia. No testicular mass or hernias. SKIN: Reveals a rash on his antecubital fossa, appears to be related to an insect bite. ASSESSMENT: 1. Well exam. 2. Bladder spasms and slight incontinence issues. PLAN: He is given referral to Urology. Will check a cholesterol fractionation, blood glucose, PSA, electrolytes, and creatinine. He was given refills on his medications. He is due for a colonoscopy and I didorder a colonoscopy. He is encouraged to continue a healthy lifestyle. Follow up in our clinic pmila DEVIT:KASHIF C: CONFIRM #: [id number] documented in this encounter Plan of Treatment Not on filedocumented as of this encounter Visit Diagnoses Diagnosis Well adult exam - Primary Routine general medical examination at a health care facility Disorder of bladder Unspecified disorder of bladder Screening cholesterol level Screening for lipoid disorders Screening for diabetes mellitus Screening for prostate cancer Special screening for malignant neoplasm of prostate Essential hypertension (HRC) Unspecified essential hypertension Bladder spasm Other specified disorders of bladder documented in this encounter Care Teams Assembler Knife Relationship Specialty Start Date End Date Pierre Evans MD PCP - General 08/23/[address] [facility] [place] [address] documented as of this encounter
--- OUTSIDE RECORDS SUMMARY | 2022-02-11 21:06 | XMS_ITS | Encounter Summary ---
:1950 Author Organization [employer] Address [address] [address] Care Team Providers Name Role Phone Pierre Evans MD Primary Care Provider Reason for Visit Reason Comments Prior Authorization Request Encounter Details Date Type Department Care Team Description 08/10/2015 Telephone Pierre Busch Authorization Elvis Barnett MD Request [id number] [place] [address] [place] [phone] Social History Tobacco Use Types Packs/Day Years Used Date Smoking Tobacco: Never Assessed Sex Assigned at Date Recorded Not on file documented as of this encounter Nursing Notes Corey Frederick LPN - 08/10/2015 11:37 AM CDT Pt. notified. WAY MAN Pierre Evans MD - 08/10/2015 11:29 AM CDT Prescription for protonix sent to pharmacy. Please notify pt. Thank you. Corey Frederick LPN - 08/10/2015 11:08 AM CDT Spoke to Corey, he is willing to try Protonix. WAY MAN Pierre Evnas MD - 08/10/2015 11:03 AM CDT Please notify pt. He has been on omeprazole and prevacid (lansoprazole) in the past, but I don't think those medications worked will for him. We could try protonix (pantoprazole) if he would like to try that. His insurance will not pay for nexium (esomeprazole) no matter what. Leah Christensen - 08/10/2015 10:51 AM CDT PRIOR AUTHORIZATION OR CHANGE MEDICATIONS? Comment: I spoke to Mary Jo at [employer]. Nexium/esomeprazole is a plan exclusion. The plan will cover omeprazole, lansoprazole or pantoprazole OR the patient can pay out of pocket for the esomeprazole. Pharmacy Name: [facility] [phone] Pharmacy Fax# or Address: [facility] Name: Nathan Drug Name/Strength: esomeprazole 40mg Sig: one capsule by mouth daily at 8 AM Formulary Alternative: see above Insurance Carrier: [employer]. [phone] *[address] MAN documented in this encounter Plan of Treatment Not on filedocumented as of this encounter Visit Diagnoses Diagnosis Mims's esophagus without dysplasia - Primary Mims's esophagus Gastroesophageal reflux disease with eso phagitis documented in this encounter Care Teams Prepress Operator Relationship Specialty Start Date End Date Pierre Evans MD PCP - General 08/23/10 [address] [facility] [place] [address] documented as of this encounter
--- OUTSIDE RECORDS SUMMARY | 2022-02-11 21:06 | XMS_ITS | Encounter Summary ---
:1950 Author Organization [employer] Address [address] [place] [address] Care Team Providers Name Role Phone Pierre Evans MD Primary Care Provider Encounter Details Date Type Department Care Team Description 12/23/2015 Lab Visit Estelita bustamante Screening cholesterol level; [address] bender Screening for diabetes paulo tus; STACEY Damico [phone] Screening for prostate cance r; [phone] Essential hyper tension Social History Tobacco Use Types Packs/Day Years Used Date Smoking Tobacco: Never Assessed Sex Assigned at Date Recorded Not on file documented as of this encounter Plan of Treatment Not on filedocumented as of this encounter Procedures Procedure Name Priority Date/Time Associated Diagnosis Comme nts ELECTROLYTES (NA, K, Routine 12/23/2015 8:48 AM Essential R esults for this CL, BICARB) CDT hypertension procedure are i n the results section. GLUCOSE Routine 12/23/2015 8:48 AM Screening for Results for this CDT diabetes mellitus procedure are in the results section. LIPID PANEL AND Routine 12/23/2015 8:48 AM Screening Result s for this DIRECT LDL(IF NEEDED) CDT cholesterol level p rocedure are in the results section. CREATININE / GFR Routine 12/23/2015 8:48 AM Essential Resul ts for this CDT hypertension procedure are i n the results section. PROSTATIC SPECIFIC Routine 12/23/2015 8:48 AM Screening for Re sults for this ANTIGEN(SCREEN) CDT prostate cancer procedure are in the results section. documented in this encounter Results (ABNORMAL) Creatinine / GFR (12/23/2015 8:48 AM CDT) Patholo gist Method Time Signature Creatinine 1.29 (H) 0.73 - HP CONVERSION Serum 1.18 mg/dL Est GFR >60 >60 HP CONVERSION [...] Time (Source) Location / / Volume Laterality 12/23/2015 8:48 AM 6 1:31 CDT PM CDT Narrative HP CONVERSION - 12/23/2015 7:16 PM CDT Performed at [facility], [address] [place] [address] CLIA number [id number] Pierre Evans MD LAB_1 Performing Organization Address [facility] Phon e Number HP CONVERSION Electrolytes (NA, K, CL, Bicarb) (12/23/2015 8:48 AM CDT) athologist Signature Sodium 138 136 - 145 HP CONVERSION mmol/L Potassium 4.6 3.5 - 5.2 HP CONVERSION mmol/L Chloride 107 98 - 107 HP CONVERSION mmol/L Bicarbonate 25 22 - 29 HP CONVERSION mmol/L Specimen Anatomical Collection Method Collection Time Receive d Time (Source) Location / / Volume Laterality 12/23/2015 8:48 AM 6 1:31 CDT PM CDT Narrative HP CONVERSION - 12/23/2015 7:16 PM CDT Performed at [facility], [address] [place] [address] CLIA number [id number] Pierre Evans MD LAB_1 Performing Organization Address [facility] Phon e Number HP CONVERSION Prostatic Specific Antigen (Screen) (12/23/2015 8:48 AM CDT) athologist Signature Prostate 1.3 0.0 - 4.0 HP CONVERSION Specific ng/mL Antigen Comment: The current AlphaSmart method fo r measuring PSA has been determined to be biased approximate ly 10% higher than the now-retired Siemens Centaur method u sed prior to May 04, 2015. The Castro PSA Chemiluminescent immunoas say is used. Results obtained with different test met hods or kits cannot be used interchangeably. Specimen Anatomical Collection Method Collection Time Receive d Time (Source) Location / / Volume Laterality 12/23/2015 8:48 AM 6 CDT 12:04 PM CDT Narrative HP CONVERSION - 12/23/2015 1:36 PM CDT Performed at [place] [id number] CLIA number [id number] Pierre Evans MD LAB_1 Performing Organization Address [facility] Phon e Number HP CONVERSION Glucose (12/23/2015 8:48 AM CDT) athologist Signature Lab Glucose 100 60 - 100 HP CONVERSION mg/dL Specimen Anatomical Collection Method Collection Time Receive d Time (Source) Location / / Volume Laterality 12/23/2015 8:48 AM 6 1:31 CDT PM CDT Narrative HP CONVERSION - 12/23/2015 7:16 PM CD[place] [address] CLIA number [id number] Pierre Evans MD LAB_1 Performing Organization Address [facility] Phon e Number HP CONVERSION (ABNORMAL) Lipid Panel and Direct LDL(If Needed) (12/23/2015 8:48 AM CDT) [facility] gist Method Time Signature Cholesterol 205 (H) 0 - 199 HP CONVERSION mg/dL Triglycerides 129 4 - 149 HP CONVERSION mg/dL HDL Cholesterol 34 (L) >39 mg/dL HP CONVERSION Cholesterol/HDL 6.0 HP CONVERSION Ratio Screen LDL Calculated 145 (H) 19 - 130 HP CONVERSION mg/dL Length Of Fast 10 HP CONVERSION Specimen Anatomical Collection Method Collection Time Receive d Time (Source) Location / / Volume Laterality 12/23/2015 8:48 AM 6 1:31 CDT PM CDT Narrative HP CONVERSION - 12/23/2015 7:16 PM CDT Performed at [facility], [address] [place] [address] CLIA number [id number] Pierre Evans MD LAB_1 Performing Organization Address City/State/ZIP Code Phon e Number HP CONVERSION documented in this encounter Visit Diagnoses Diagnosis Screening cholesterol level Screening for lipoid disorders Screening for diabetes mellitus Screening for prostate cancer Special screening for malignant neoplasm of prostate Essential hypertension (HRC) Unspecified essential hypertension documented in this encounter Care Teams Manufacturing Scheduler Relationship Specialty Start Date End Date Pierre Evans MD PCP - General 08/23/10 [address] [facility] [place] [address] documented as of this encounter
--- OUTSIDE RECORDS SUMMARY | 2022-02-11 21:06 | XMS_ITS | Encounter Summary ---
:1950 Author Organization [employer] Address [address] [facility] [facility] [address] Care Team Providers Name Role Phone Pierre Evans MD Primary Care Provider Reason for Visit Reason Comments Annual Exam Encounter Details Date Type Department Care Team Description 12/26/2017 Office Visit Estelita Ruth Family Pierre Evans Well adult exam (Primary Dx); Elvis Barnett MD Erectile dysfunction of organic origin; [address] Hyper tension; Drive Dr Screening cholesterol level; STACEY Damico [phone] STACEY DAMICO Screening for prostate cance r; [phone] Screening for diabetes mellitus Social History Tobacco Use Types Packs/Day Years [...] Sign Reading Time Taken Comments Blood Pressure 123/79 12/26/2017 9:00 AM CDT Pulse 64 12/26/2017 9:00 AM CDT Temperature - - Respiratory Rate - - Oxygen Saturation - - Inhaled Oxygen Concentration - - Weight 85.3 kg (188 lb) 12/26/2017 8:04 AM CDT Height 177.8 cm (5' 10) 12/26/2017 8:04 AM CDT Body Mass Index 26.98 12/26/2017 8:04 AM CDT documented in this encounter Progress Notes Pierre Evans MD - 12/26/2017 12:00 PM CDT NAME: COREY FRASER MR#: [id number] CSN: [id number] AUTHENTICATING CLINICIAN: Pierre Evans MD CONFIRM #: [id number] LOC: 2702 CLINIC PHYSICAL DATE OF VISIT: 12/26/2017 : 1950 SUBJECTIVE: Corey is a 67-year-old gentleman who comes in today for a well exam. He has a few concerns which were addressed today. He has been having some issues with cough. It seems to be worse with eating certain foods. It may be related to reflux. He does have a history of gastroesophageal reflux. He is due for an endoscopy next month and will schedule that as his doctor is in [place], [place]. He has had some low back issues which were actually better. 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 He is , has 2 children, 2 grandchildren. Exercises by biking and walking. Smokes 1 small cigar per week. Says he does not inhale. Drinks 4-5 alcoholic beveragesper week. Feels like his diet has been okay. Weight has been stable. PAST MEDICAL HISTORY: Significant for colon polyps. He had a colonoscopy 2 years ago and is due for a repeat colonoscopy in 2020. He has had hypertension and gastroesophageal reflux. He has had bilateral blepharoplasty surgery and bilateral knee surgeries. FAMILY HISTORY: Mother at age 77. She had colon cancer. Father at age 87. He has 3 sisters who are living.One of them has hypothyroidism. One brother who is healthy. CURRENT MEDICATIONS: Include Nexium 20 mg daily, lisinopril 2.5 mg daily, Cialis 5-10 mg as needed and VESIcare 10 mg daily. ALLERGIES: No known drug allergies. PHYSICAL EXAM: VITAL SIGNS: In Epic. GENERAL: A well-appearing 67-year-old male in no distress. HEAD, EYES, EARS, NOSE, AND THROAT: Within normal limits. RESPIRATORY: Effort normal. LUNGS: CTA bilaterally. HEART: RRR. No MGR. ABDOMEN: Soft, NT, ND. No masses. EXTREMITIES: Without edema. SKIN: Without rashes or suspicious moles. ASSESSMENT: 1.Well exam. 2.Hypertension. 3.Erectile dysfunction. PLAN: Will check electrolytes, creatinine, cholesterol fractionation, blood glucose, and PSA. He was givenrefills on his Cialis and lisinopril. His blood pressure initially today was elevated but came down to 123/79. He is encouraged to continue working on getting regular exercise. Will follow up in our clinic p.r.n. AJT:KASHIF C: CONFIRM #: [id number] documented in this encounter Plan of Treatment Not on filedocumented as of this encounter Results Prostatic Specific Antigen Screen (12/26/2017 9:24 AM CDT) athologist [facility] Prostate 1.3 0.0 - 4.0 PN SOFT Specific ng/mL Antigen Comment: The Castro PSA Chemiluminescent immunoas say is used. Results obtained with different test met hods or kits cannot be used interchangeably. Specimen Anatomical Collection Method Collection Time Receive d Time (Source) Location / / Volume Laterality 12/26/2017 9:24 AM 8 CDT 12:10 PM CDT Narrative PN SOFT - 12/26/2017 1:00 PM CDT Performed at [facility], [address] [place] [address] CLIA number [id number] Pierre Evans MD LAB_1 Performing Organization Address City/State/ZIP Code Phon e Number PN SOFT [address] [place] [address] (ABNORMAL) Glucose (12/26/2017 9:24 AM CDT) athologist [facility] Lab Glucose 104 (H) 70 - 100 PN SOFT mg/dL Comment: The stated glucose range is for the fast ing state. Non-fasting glucose range is 70-180 mg/d L Specimen Anatomical Collection Method Collection Time Receive d Time (Source) Location / / Volume Laterality 12/26/2017 9:24 AM 8 CDT 12:09 PM CDT Narrative PN SOFT - 12/26/2017 12:43 PM CDT Performed at [address] [address] CLIA number [id number] Pierre Evans MD LAB_1 Performing Organization Address [facility] Phon e Number PN SOFT [address] [place] [address] (ABNORMAL) Lipid Panel - LDLD If Trig High (12/26/2017 9:24 AM CDT) [facility] gist Method Time Signature Cholesterol 207 (H) 0 - 199 PN SOFT mg/dL Triglycerides 136 4 - 149 PN SOFT mg/dL HDL Cholesterol 37 (L) >39 mg/dL PN SOFT Cholesterol/HDL 5.6 PN SOFT Ratio Screen LDL Calculated 143 (H) 19 - 130 PN SOFT mg/dL Non HDL Chol, Calc 170 (H) 0 - 159 PN SOFT mg/dL Length Of Fast 12.0 PN SOFT Specimen Anatomical Collection Method Collection Time Receive d Time (Source) Location / / Volume Laterality 12/26/2017 9:24 AM 8 CDT 12:09 PM CDT Narrative PN SOFT - 12/26/2017 12:43 PM CDT Performed at [address] [address] CLIA number [id number] Pierre Evans MD LAB_1 Performing Organization Address [facility] e Number PN SOFT [address] [place] [address] (ABNORMAL) Creatinine (12/26/2017 9:24 AM CDT) [facility] Signature Creatinine 1.20 (H) 0.73 - PN SOFT Serum 1.18 mg/dL Est GFR >60 >60 PN [...] Time (Source) Location / / Volume Laterality 12/26/2017 9:24 AM 8 CDT 12:09 PM CDT Narrative PN SOFT - 12/26/2017 12:43 PM CDT [place]formed [place] [address] CLIA number [id number] Pierre Evans MD LAB_1 Performing Organization Address [facility] Phon e Number PN SOFT [address] [place] [address] Electrolyte Panel (12/26/2017 9:24 AM CDT) athologist Signature Sodium 138 136 - 145 PN SOFT mmol/L Potassium 4.7 3.5 - 5.2 PN SOFT mmol/L Chloride 104 98 - 109 PN SOFT mmol/L CO2 27 22 - 31 PN SOFT mmol/L Specimen Anatomical Collection Method Collection Time Receive d Time (Source) Location / / Volume Laterality 12/26/2017 9:24 AM 8 CDT 12:09 PM CDT Narrative PN SOFT - 12/26/2017 12:43 PM CDT Performed at [address] [address] CLIA number [id number] Pierre Evans MD LAB_1 Performing Organization Address [facility] Phon e Number PN SOFT [address] [place] [address] documented in this encounter Visit Diagnoses Diagnosis Well adult exam - Primary Routine general medical examination at a health care facility Erectile dysfunction of organic origin Impotence of organic origin Hypertension Unspecified essential hypertension Screening cholesterol level Screening for lipoid disorders Screening for prostate cancer Special screening for malignant neoplasm of prostate Screening for diabetes mellitus Hypertension Unspecified essential hypertension Screening cholesterol level Screening for lipoid disorders Screening for diabetes mellitus Screening for prostate cancer Special screening for malignant neoplasm of prostate documented in this encounter Care Teams Special Procedures Technologist Relationship Specialty Start Date End Date Pierre Evans MD PCP - General 08/23/[address] [place] [address] documented as of this encounter
--- OUTSIDE RECORDS SUMMARY | 2022-02-11 21:06 | XMS_ITS | Encounter Summary ---
:1950 Author Organization [employer] Address [address] [place] [address] Care Team Providers Name Role Phone Pierre Evans MD Primary Care Provider Encounter Details Date Type Department Care Team Description 12/25/2016 Lab Visit Estelita bustamante Hypertension; [address] bender Screening cholesterol level; STACEY Damico 553 [address] Screening for diabetes melli tus; [phone] Need for hepati tis C screening test Social History Tobacco Use Types Packs/Day Years [...] Diagnosis Comme nts LIPID PANEL AND Routine 12/25/2016 9:01 AM Screening cholester ol Results for this DIRECT LDL(IF CDT level procedure are in NEEDED) the results section. CREATININE / GFR Routine 12/25/2016 9:01 AM Hypertension Resul ts for this CDT procedure are i n the results section. ELECTROLYTE PANEL Routine 12/25/2016 9:01 AM Hypertension Resu lts for this CDT procedure are i n the results section. HEPATITIS C Routine 12/25/2016 9:01 AM Need for hepatitis C R esults for this ANTIBODY, WITH CDT screening test procedure a re in REFLEX the results section. GLUCOSE - FASTING > Routine 12/25/2016 9:01 AM Screening for R esults for this 8 HRS FASTING CDT diabetes mellitus procedure are in the results section. documented in this encounter Results Hepatitis C Virus Bren with Reflex (12/25/2016 9:01 AM CDT) [facility] Method Time Signature Hepatitis C Nonreactive Nonreactive PN SOFT Antibody Specimen Anatomical Collection Method Collection Time Receive d Time (Source) Location / / Volume Laterality 12/25/2016 9:01 AM 7 CDT 12:08 PM CDT Narrative PN SOFT - 12/25/2016 12:51 [place] [address] CLIA number [id number] Pierre Evans MD LAB_1 Performing Organization Address [facility] Phon e Number PN SOFT [address] [place] [address] (ABNORMAL) Glucose (12/25/2016 9:01 AM CDT) athologist [...] - 12/25/2016 12:29 PM CDT Performed at [address] [address] CLIA number [id number] Pierre Evans MD LAB_1 Performing Organization Address [facility] Phon e Number PN SOFT [address] [place] [address] (ABNORMAL) Lipid Panel - LDLD If Trig High (12/25/2016 9:01 AM CDT) Patholo gist Method Time Signature Cholesterol 200 (H) [...] - 12/25/2016 12:29 PM CDT Performed at [address] [address] CLIA number [id number] Pierre Evans MD LAB_1 Performing Organization Address [facility] e Number PN SOFT [address] [place] [address] Creatinine (12/25/2016 9:01 AM CDT) athologist Signature [...] - 12/25/2016 12:29 PM CDT Performed at [address] [address] CLIA number [id number] Pierre Evans MD LAB_1 Performing Organization Address [facility] e Number PN SOFT [address] [place] [address] Electrolyte Panel (12/25/2016 9:01 AM CDT) athologist [...] - 12/25/2016 12:29 PM CDT Performed at [facility], [address] [place] [address] CLIA number [id number] Pierre Evans MD LAB_1 Performing Organization Address City/State/ZIP Code Phon e Number PN SOFT [address] [place] [address] documented in this encounter Visit Diagnoses Diagnosis Hypertension Unspecified essential hypertension Screening cholesterol level Screening for lipoid disorders Screening for diabetes mellitus Need for hepatitis C screening test Special screening examination for other specified viral diseases documented in this encounter Care Teams Direct Support Staff Member Relationship Specialty Start Date End Date Pierre Evans MD PCP - General 08/23/10 [address] [facility] [place] [address] documented as of this encounter
--- OUTSIDE RECORDS SUMMARY | 2022-02-11 21:06 | XMS_ITS | Encounter Summary ---
:1950 Author Organization [employer] Address [address] [place] [address] Care Team Providers Name Role Phone Pierre Evans MD Primary Care Provider Encounter Details Date Type Department Care Team Description 12/26/2017 Lab Visit Estelita bustamante Hypertension; [address] bender Screening cholesterol level; STACEY Damico [address] Screening for diabetes melli tus; [phone] Screening for p rostate cancer Social History [...] Diagnosis Comme nts LIPID PANEL AND Routine 12/26/2017 9:24 AM Screening cholester ol Results for this DIRECT LDL(IF CDT level procedure are in NEEDED) the results section. CREATININE / GFR Routine 12/26/2017 9:24 AM Hypertension Resul ts for this CDT procedure are i n the results section. PROSTATIC SPECIFIC Routine 12/26/2017 9:24 AM Screening for Re sults for this ANTIGEN(SCREEN) CDT prostate cancer procedure are in the results section. ELECTROLYTE PANEL Routine 12/26/2017 9:24 AM Hypertension Resu lts for this CDT procedure are i n the results section. GLUCOSE - FASTING > Routine 12/26/2017 9:24 AM Screening for R esults for this 8 HRS FASTING CDT diabetes mellitus procedure are in the results section. documented in this encounter Results Prostatic Specific Antigen Screen (12/26/2017 9:24 AM CDT) athologist Signature Prostate 1.3 0.0 - 4.0 PN SOFT Specific ng/mL Antigen Comment: The DossierView PSA Chemiluminescent immunoas say is used. Results obtained with different test met hods or kits cannot be used interchangeably. Specimen Anatomical Collection Method Collection Time Receive d Time (Source) Location / / Volume Laterality 12/26/2017 9:24 AM 8 CDT 12:10 PM CDT Narrative PN SOFT - 12/26/2017 1:00 PM CD[place] [address] CLIA number [id number] Pierre Evans MD LAB_1 Performing Organization Address [facility] Phon e Number PN SOFT [address] [place] [address] (ABNORMAL) Glucose (12/26/2017 9:24 AM CDT) athologist Signature Lab Glucose 104 (H) 70 - 100 PN SOFT mg/dL Comment: The stated glucose range is for the fast ing state. Non-fasting glucose range is 70-180 mg/d L Specimen Anatomical Collection Method Collection Time Receive d Time (Source) Location / / Volume Laterality 12/26/2017 9:24 AM 8 CDT 12:09 PM CDT Narrative PN SOFT - 12/26/2017 12:43 PM CDT Performed at [address] [address] CLIA number [id number] Pierre Evans MD LAB_1 Performing Organization Address [facility] Phon e Number PN SOFT [address] [place] [address] (ABNORMAL) Lipid Panel - LDLD If Trig High (12/26/2017 9:24 AM CDT) [facility] gist Method Time Signature Cholesterol 207 [...] - 12/26/2017 12:43 PM CDT [place] [address] CLIA number [id number] Pierre Evans MD LAB_1 Performing Organization Address City/State/[facility] e Number PN SOFT [address] [place] [address] (ABNORMAL) Creatinine (12/26/2017 9:24 AM CDT) Analysis Performed At [facility] logist Time Signature Creatinine 1.20 (H) 0.73 - [...] - 12/26/2017 12:43 PM CDT Performed at [address] [address] CLIA number [id number] Pierre Evans MD LAB_1 Performing Organization Address [facility] Phon e Number PN SOFT [address] [place] [address] [phone] Electrolyte Panel (12/26/2017 9:24 AM CDT) athologist [...] - 12/26/2017 12:43 PM CDT Performed at [place] [address] [place] [address] CLIA number [id number] Pierre Evans MD LAB_1 Performing Organization Address [facility] Phon e Number PN SOFT [address] [place] [address] documented in this encounter Visit Diagnoses Diagnosis Hypertension Unspecified essential hypertension Screening cholesterol level Screening for lipoid disorders Screening for diabetes mellitus Screening for prostate cancer Special screening for malignant neoplasm of prostate documented in this encounter Care Teams Dewaxer Relationship Specialty Start Date End Date Pierre Evans MD PCP - General 08/23/[facility] [facility] [place] [address] documented as of this encounter
--- OUTSIDE RECORDS SUMMARY | 2022-02-11 21:06 | XMS_ITS | Encounter Summary ---
:1950 Author Organization [employer] Address [address] [place] [address] Care Team Providers Name Role Phone Pierre Evans MD Primary Care Provider Encounter Details Date Type Department Care Team Description 01/23/2019 Lab Visit Estelita bustamante Hyperlipidemia, unspecified [address] bender hyperlipidemia type [place]elita [place] [address] Social History Tobacco Use Types Packs/Day Years [...] Diagnosis Comme nts LIPID PANEL AND Routine 01/23/2019 8:47 AM Hyperlipidemia, Res ults for this DIRECT LDL(IF CDT unspecified procedure are in NEEDED) hyperlipidemia type the resu lts section. documented in this encounter Results (ABNORMAL) Lipid Panel - LDLD If Trig High (01/23/2019 8:47 AM CDT) [facility] Method Time Signature Cholesterol 128 0 - 199 01/23/2019 [facility] mg/dL 12:42 PM CDT LABORATORY Triglyceride 154 (H) <=149 01/23/2019 [facility] mg/dL 12:42 PM CDT LABORATORY HDL Cholesterol 36 (L) >=40 01/23/2019 [facility] mg/dL 12:42 PM CDT LABORATORY LDL, Calculated 61 <130 01/23/2019 [facility] mg/dL 12:42 PM CDT LABORATORY Non HDL Chol, 92 <=159 01/23/2019 [facility] Calculated mg/dL 12:42 PM CDT LABORATORY Cholesterol/HDL 3.6 01/23/2019 [facility] Ratio 12:42 PM CDT LABORATORY Hours Fasting 10 01/23/2019 ESTELITA RUTH 12:42 PM CDT LABORATORY(PN) Specimen Anatomical Collection Method / Collection Time Recei anoop Time (Source) Location / Volume Laterality Blood Venipuncture / 01/23/2019 8:47 01/23/2019 8:47 Unknown AM CDT AM CDT Pierre Evasn MD LAB_1 Performing Organization Address City/State/ZIP Code Phon e Number [facility] [address] [place] [address] ESTELITA RUTH [address] [facility] [place], [place] [phone](PN) Drive [phone] documented in this encounter Visit Diagnoses Diagnosis Hyperlipidemia, unspecified hyperlipidem ia type (HRC) documented in this encounter Care Teams Cable Installation Technician Relationship Specialty Start Date End Date Pierre Evans MD PCP - General 08/23/10 [address] [facility] [place] [address] documented as of this encounter
--- OUTSIDE RECORDS SUMMARY | 2022-02-11 21:06 | XMS_ITS | Encounter Summary ---
:1950 Author Organization [employer] Address [address] [place] [address] Care Team Providers Name Role Phone Pierre Evans MD Primary Care Provider Encounter Details Date Type Department Care Team Description 12/05/2018 Lab Visit Estelita bustamante Screening cholesterol level; [address] [facility] [address] bender Screening for diabetes melli tus; [place] [address] Hypertension; [phone] Screening for p rostate cancer Social History [...] Diagnosis Comme nts LIPID PANEL AND Routine 12/05/2018 9:36 AM Screening cholester ol Results for this DIRECT LDL(IF CDT level procedure are in NEEDED) the results section. CREATININE / GFR Routine 12/05/2018 9:36 AM Hypertension Resul ts for this CDT procedure are i n the results section. PROSTATIC SPECIFIC Routine 12/05/2018 9:36 AM Screening for Re sults for this ANTIGEN(SCREEN) CDT prostate cancer procedure are in the results section. ELECTROLYTE PANEL Routine 12/05/2018 9:36 AM Hypertension Resu lts for this CDT procedure are i n the results section. GLUCOSE Routine 12/05/2018 9:36 AM Screening for Results for this CDT diabetes mellitus procedure are in the results section. documented in this encounter Results Prostatic Specific Antigen Screen (12/05/2018 9:36 AM CDT) athologist Signature Prostatic 1.5 0.0 - 4.0 12/05/2018 [facility] Specific ng/mL 4:06 PM CDT LABORATORY Antigen Specimen Anatomical Collection Method / Collection Time Recei anoop Time (Source) Location / Volume Laterality Blood Venipuncture / 12/05/2018 9:36 12/05/2018 9:36 Unknown AM CDT AM CDT Narrative [facility] - 12/05/2018 4:06 P M CDT [employer] [place] Talk PSA Chemiluminescent immunoas say is used. Results obtained with different test methods or kits cannot be used inte rchangeably. Pierre Evans MD LAB_1 Performing Organization Address City/[facility] e Number [facility] [address] [place] [address] Creatinine (12/05/2018 9:36 AM CDT) athologist Signature Creatinine 1.16 0.73 - 12/05/2018 [facility] 1.18 mg/dL 3:51 PM CDT LABORATORY GFR, Estimated >60 >60 12/05/2018 [facility] mL/min/1.7 3:51 PM CDT LABORATORY 3m2 GFR, Est If >60 >60 12/05/2018 [facility] mL/min/1.7 3:51 PM CDT LABORATORY Fijian 3m2 Specimen Anatomical Collection Method / Collection Time Recei anoop Time (Source) Location / Volume Laterality Blood Venipuncture / 12/05/2018 9:36 12/05/2018 9:36 Unknown AM CDT AM CDT Pierre Evans MD LAB_1 Performing Organization Address [facility] Phon e Number [facility] [address] [place] [address] Electrolyte Panel (12/05/2018 9:36 AM CDT) athologist Signature Sodium 141 136 - 145 12/05/2018 [facility] mmol/L 3:51 PM CDT LABORATORY Potassium 4.9 3.5 - 5.1 12/05/2018 [facility] mmol/L 3:51 PM CDT LABORATORY Chloride 105 98 - 109 12/05/2018 [facility] mmol/L 3:51 PM CDT LABORATORY CO2 27 20 - 29 12/05/2018 [facility] mmol/L 3:51 PM CDT LABORATORY Anion Gap 9 7 - 16 12/05/2018 [facility] mmol/L 3:51 PM CDT LABORATORY Specimen Anatomical Collection Method / Collection Time Recei anoop Time (Source) Location / Volume Laterality Blood Venipuncture / 12/05/2018 9:36 12/05/2018 9:36 Unknown AM CDT AM CDT Pierre Evans MD LAB_1 Performing Organization Address [facility] Phon e Number [facility] [address] [place] [address] Glucose (12/05/2018 9:36 AM CDT) athologist Signature Glucose 97 70 - 100 12/05/2018 [facility] mg/dL 3:51 PM CDT LABORATORY Comment: The given reference range is fo r the fasting state. Non-fasting reference range for glucose is 70 - 180 mg/dL. Hours Fasting 12 12/05/2018 3:51 PM CDT [facility] [place](PN) Specimen Anatomical Collection Method / Collection Time Recei anoop Time (Source) Location / Volume Laterality Blood Venipuncture / 12/05/2018 9:36 12/05/2018 9:36 Unknown AM CDT AM CDT Pierre Evans MD LAB_1 Performing Organization Address [facility] Phon e Number [facility] [address] [place] [address] [facility] [address] [place], [place] [phone] LAB[address](PN) [address] [phone] Lipid Panel - LDLD If Trig High (12/05/2018 9:36 AM CDT) [facility] Method Time Signature Cholesterol 228 (H) 0 - 199 12/05/2018 [facility] mg/dL 3:51 PM CDT LABORATORY Triglyceride 169 (H) <=149 12/05/2018 [facility] mg/dL 3:51 PM CDT LABORATORY HDL Cholesterol 35 (L) >=40 12/05/2018 [facility] mg/dL 3:51 PM CDT LABORATORY LDL, Calculated 159 (H) <130 12/05/2018 [facility] mg/dL 3:51 PM CDT LABORATORY Non HDL Chol, 193 (H) <=159 12/05/2018 [facility] Calculated mg/dL 3:51 PM CDT LABORATORY Cholesterol/HDL 6.5 12/05/2018 [facility] Ratio 3:51 PM CDT LABORATORY Hours Fasting 12 12/05/2018 ESTELITA RUTH 3:51 PM CDT LABORATORY(PN) Specimen Anatomical Collection Method / Collection Time Recei anoop Time (Source) Location / Volume Laterality Blood Venipuncture / 12/05/2018 9:36 12/05/2018 9:36 Unknown AM CDT AM CDT Pierre Evans MD LAB_1 Performing Organization Address City/State/ZIP Code Phon e Number [facility] [address] [place] [address] ESTELITA RUTH [address] [place] [phone] LAB[address](PN) Drive [phone], [facility] documented in this encounter Visit Diagnoses Diagnosis Screening cholesterol level Screening for lipoid disorders Screening for diabetes mellitus Hypertension Unspecified essential hypertension Screening for prostate cancer Special screening for malignant neoplasm of prostate documented in this encounter Care Teams Lumpia Wrapper Maker Relationship Specialty Start Date End Date Pierre Evans MD PCP - General 08/23/10 [address] [facility] [place] [address] documented as of this encounter
--- OUTSIDE RECORDS SUMMARY | 2022-02-11 21:06 | XMS_ITS | Encounter Summary ---
:1950 Author Organization [employer] Address [address] [place] [address] Care Team Providers Name Role Phone Pierre Evans MD Primary Care Provider Encounter Details Date Type Department Care Team Description 02/10/2014 Lab Visit Estelita bustamante Screening for lipoid disorde rs; [address] bender Unspecified essential hypert ension; STACE[place] Dam[place] [address] Screening for diabetes melli tus; [phone] Special screeni ng for malignant neoplasm of prostate Social History Tobacco Use Types Packs/Day Years Used Date Smoking Tobacco: Never Assessed Sex Assigned at Date Recorded Not on file documented as of this encounter Plan of Treatment Not on filedocumented as of this encounter Procedures Procedure Name Priority Date/Time Associated Diagnosis Comme nts GLUCOSE Routine 02/10/2014 9:42 AM Screening for Results for this CDT diabetes mellitus procedure are in the results section. LIPID PANEL AND Routine 02/10/2014 9:42 AM Screening for lipoi d Results for this DIRECT LDL(IF CDT disorders procedure are in NEEDED) the results section. PROSTATIC SPECIFIC Routine 02/10/2014 9:42 AM Special screenin g for Results for this ANTIGEN(SCREEN) CDT malignant neoplasm of pro cedure are in prostate the results section. ELECTROLYTE PANEL Routine 02/10/2014 9:42 AM Unspecified essen tial Results for this CDT hypertension (HRC) procedure are in the results section. documented in this encounter Results Prostatic Specific Antigen (Screen) (02/10/2014 9:42 AM CDT) P athologist Signature Prostate 1.1 0.0 - 4.0 HP CONVERSION Specific ng/mL Antigen Specimen Anatomical Collection Method Collection Time Receive d Time (Source) Location / / Volume Laterality 02/10/2014 9:42 AM 4 CDT 12:01 PM CDT Pierre Evans MD LAB_1 Performing Organization Address City/[facility]/ZIP Code Phon e Number HP CONVERSION GLUCOSE (02/10/2014 9:42 AM CDT) athologist Signature Lab Glucose 97 60 - 100 HP CONVERSION mg/dL Specimen Anatomical Collection Method Collection Time Receive d Time (Source) Location / / Volume Laterality 02/10/2014 9:42 AM 4 CDT 12:01 PM CDT Pierre Evans MD LAB_1 Performing Organization Address City/[facility]/ZIP Code Phon e Number HP CONVERSION Electrolyte Panel (02/10/2014 9:42 AM CDT) athologist Signature Sodium 143 137 - 147 HP CONVERSION Potassium 5.1 3.5 - 5.2 HP CONVERSION Chloride 104 98 - 110 HP CONVERSION Bicarbonate 31 23 - 33 [facility] CON[facility] mmol/L Specimen Anatomical Collection Method Collection Time Receive d Time (Source) Location / / Volume Laterality 02/10/2014 9:42 AM 4 CDT 12:01 PM CDT Pierre Evans MD LAB_1 Performing Organization Address [facility]/ZIP Code Phon e Number HP CONVERSION (ABNORMAL) Lipid Panel and Direct LDL(If Needed) (02/10/2014 9:42 AM CDT) [facility] Method Time Signature Cholesterol 210 (H) 0 - 200 HP CONVERSION mg/dL Triglycerides 178 (H) 0 - 149 HP CONVERSION mg/dL HDL Cholesterol 38 (L) >39 mg/dL HP CONVERSION Cholesterol/HDL 5.5 HP CONVERSION Ratio Screen LDL Calculated 136 (H) 19 - 130 HP CONVERSION mg/dL Length Of Fast 10 HP CONVERSION Specimen Anatomical Collection Method Collection Time Receive d Time (Source) Location / / Volume Laterality 02/10/2014 9:42 AM 4 CDT 12:01 PM CDT Pierre Evans MD LAB_1 Performing Organization Address City/[facility]/ZIP Code Phon e Number HP CONVERSION documented in this encounter Visit Diagnoses Diagnosis Screening for lipoid disorders Unspecified essential hypertension (HRC) Unspecified essential hypertension Screening for diabetes mellitus Special screening for malignant neoplasm of prostate documented in this encounter Care Teams Offal Icer Poultry Relationship Specialty Start Date End Date Pierre Evans MD PCP - General 08/23/10 [address] [facility] [place] [address] documented as of this encounter
--- OUTSIDE RECORDS SUMMARY | 2022-02-11 21:06 | XMS_ITS | Encounter Summary ---
:1950 Author Organization [employer] Address [address], [place] [address] Care Team Providers Name Role Phone Pierre Evans MD Primary Care Provider Reason for Visit Reason Comments Flank Pain right side, 2 weeks Encounter Details Date Type Department Care Team Description 02/25/2020 Office Visit Cindy Cloud dominal muscle strain, initial encounter (Primary Dx); Medicine J, PA-C Right sided abdominal pain [address] [place]onel [place], [place] [address] [phone] Social History Tobacco Use Types Packs/Day Years [...] ??F) 02/25/2020 7:49 AM CDT Respiratory Rate - - Oxygen Saturation - - Inhaled Oxygen Concentration - - Weight 87.1 kg (192 lb) 02/25/2020 7:49 AM CDT Height 179.1 cm (5' 10.5) 02/25/2020 7:49 AM CDT Body Mass Index 27.16 02/25/2020 7:49 AM CDT documented in this encounter Patient Instructions Patient InstructionsCindy Aguilar PA-C - 02/25/2020 8:00 AM CDT Images from the original note were not included. You may take Extra Strength Tylenol (acetaminophen) 500-1000 mg every 4-6 hours as needed for pain. Maximum of 8 tablets in 24 hours (4000 mg) Get Shingrix immunization series at your pharmacy. Medicare and Vaccines Medicare Part B does not cover hepatitis vaccines (HepA, HepB, HepA+HepB) tetanus and diphtheria (Td) vaccine, tetanus, diphtheria and pertussis (Tdap) vaccine, varicella (chickenpox) vaccine or zoster(shingles) vaccines. Please be aware that you will receive a bill for the vaccine. The estimated cost per dose for HepA is $134, HepB - $145, HepA+HepB - $211, MMR - $147, Td - $72, Tdap - $85, varicella - $243 and zoster - $271. Medicare Part D may cover these vaccines. If you have Medicare Part D coverage, follow the instructions on the Information on Vaccines and Medicare handout that you were given at the time you received the vaccine. Please contact us if you did not receive this handout. Abdominal Strain: Rehab Exercises Introduction Here are some examples of exercises for you to try. The exercises may be suggested for a condition or for rehabilitation. Start each exercise slowly. Ease off the exercises if you start to have pain. You will be told when to start these exercises and which ones will work best for you. How to do the exercises Ashley roldan 1. Lie on your back with your knees bent. Place two fingers just inside your hip bones so you can feel your lower belly muscles. 2. Take a deep breath in. 3. As you breathe out, pull your belly button in toward your spine, as if you are trying to zip up atight pair of jeans. You should feel your lower belly muscles pull slightly away from your fingers as the muscles tighten. 4. Hold for about 6 seconds, but do not hold your breath. 5. Relax up to 10 seconds. 6. Repeat 8 to 12 times. 7. Repeat several times a day, and try to hold your lower belly muscles in for longer as you get stronger. 8. Practice doing this exercise while you are standing, such as when you are standing in line, or sitting. Pelvic tilt 1. Lie on your back with your knees bent. 2. Brace your stomach--tighten your muscles by pulling in and imagining your belly button moving toward your spine. 3. Press your lower back into the floor. You should feel your hips and pelvis rock back. 4. Hold for 6 seconds while breathing smoothly. 5. Relax and allow your pelvis and hips to rock forward. 6. Repeat 8 to 12 times. Curl-up 1. Lie down with your knees bent and your arms at your sides. Keep your feet flat on the floor. 2. Lift your head and shoulders up a few inches. At the same time, raise your arms to about thigh level. 3. Hold for 6 seconds. 4. Relax and return to your starting position. 5. Repeat 8 to 12 times. Diagonal curl-up 1. Lie down with your knees bent and your arms at your sides. Keep your feet flat on the floor. 2. Lift your head and shoulders up. At the same time, reach to one side with both arms. 3. Hold for 6 seconds. 4. Relax and return to your starting position. 5. Repeat 8 to 12 times. 6. Repeat the same steps on your other side. Follow-up care is a bliss part of your treatment and safety. Be sure to make and go to all appointments, and call your doctor if you are having problems. It's also a good idea to know your test results and keep a list of the medicines you take. Where can you learn more? 1. Go to https://[employer]/healthlibrary or [employer]/Outline Applibrary. 2. Enter G684 in the search box. Current as of: November 13, 2018?Content Version: 12.4 ?? [id number] [employer]. Care instructions adapted under license by your healthcare professional. If you have questions abouta medical condition or this instruction, always ask your healthcare professional. [employer] disclaims any warranty or liability for your use of this information. documented in this encounter Progress Notes Cindy Aguilar PA-C - 02/25/2020 8:00 AM CDT SUBJECTIVE: Corey presents to clinic today with concerns of right anterior side pain for the past 2 weeks, gradually improving for the past 3 days. This was aggravated by a sitting to standing or laying down movement as well as laughing. Denies cough, shortness of breath, lower abdominal pain, rash, lump, bulge. Pain is sharp, had been severe at the onset, now mild. Pain is never related to eating or postprandial.He has not had any abdominal surgeries. Denies any history of renal calculi. Corey has a history of low back pain. Had a fall about 30 years ago. Did well with manipulative therapy in the [place]. He still has some recurrent symptoms. He takes ibuprofen sparingly. Denies recent falls or injuries. He works 4 days a week. He is on a computer. Do have a sit to stand desk. He walks 60-90 minutes 4 days a week. He does have known GERD with history of Mims's esophagus, states that these symptoms are well controlled on pantoprazole twice daily Corey has essential hypertension, erectile dysfunction, bladder spasms. He smokes 5-10 small cigars per week. Drinks approximately 5 alcoholic beverages per week. Adverse Drug Reactions: Patient has no known allergies. Medications: Outpatient Medications Prior to Visit Medication Sig ??? Ascorbic Acid (VITAMIN C) 1000 MG tablet ??? atorvastatin (LIPITOR) 20 MG tablet Take 1 Tablet by mouth daily. ??? esomeprazole (NEXIUM) 20 MG capsule Take 1 capsule by mouth 2 times daily (before meals). ??? lisinopril (ZESTRIL) 2.5 MG tablet Take 1 Tablet by mouth daily. ??? Multiple Vitamins-Minerals (CENTRUM SILVER 50+MEN OR) ??? Tadalafil (CIALIS) 10 MG tablet Take 1 tablet 30-60 minutes prior to sexual activity. ??? tolterodine (DETROLLA) 4 MG 24 hour release capsule ??? [DISCONTINUED] B Complex Vitamins (VITAMIN B COMPLEX OR) Take 1 tablet by mouth daily (every 24 hours). LW Comment:with biotin No facility-administered medications prior to visit. OBJECTIVE: Vital Signs: BP 128/73 (BP Location: Left Arm, BP Cuff Size: Regular) Pulse 80 Temp 98.3 ??F (36.8 ??C) (Oral) Ht 5' 10.5 (1.791 m) Wt 192 lb (87.1 kg) BMI 27.16 kg/m?? Gen.: Alert, cooperative in no acute distress. Head: Normocephalic. Eyes: PERRLA, full EOM. Ears: Normal pinnae, clear canals,TM's with no redness or bulging. Nose: Patent, without deformity. Throat: Moist mucous membranes without lesions, erythema, or exudate. Neck: Supple, without masses, lymphadenopathy or tenderness. Respiratory: Normal respiratory effort. Lungs are clear to auscultation with good breath sounds bilaterally. Heart: RR without murmurs, rubs, or gallops. Chest Wall: No masses, tenderness, deformity, rash. No AP or lateral pain to direct pressure. Back: FROM, no punch tenderness along spine. Abdomen: The abdomen was soft and nontender, normal sounds present. No obvious masses or organomegaly. Patient notes pain along right rectus abdominal border under rib cage. Lower Extremities: No cyanosis clubbing or edema. Neurologic: Alert, oriented x3, nonfocal. ASSESSMENT: ICD-10-CM 1. Abdominal muscle strain, initial encounter S39.011A 2. Right sided abdominal pain R10.9 CANCELED: XR Thoracic Spine 3 Views PLAN: Reviewed differential with patient. I suspect abdominal wall strain as symptoms are specifically aggravated with activation of the abdominal muscles. Also discussed that this could be some thoracic radicular pain. He agrees to update thoracic spine x-ray. Discussed that muscle strain can take several weeks to resolve. I would prefer that he take Tylenol as needed for pain due to history of hypertension and GERD. Recommend avoiding NSAIDs. He will contact the clinic if he develops any postprandial symptoms, this would then warrant right upper quadrant ultrasound. He will follow-up in primary care as needed. He was encouraged to get his Shingrix series at his pharmacy. Total time 25 minutes, more than 50% of the visit spent in care coordination, counseling, discussionregarding above. documented in this encounter Plan of Treatment Not on filedocumented as of this encounter Visit Diagnoses Diagnosis Abdominal muscle strain, initial encount er - Primary Right sided abdominal pain Abdominal pain, unspecified site documented in this encounter Care Teams Lining Closer Relationship Specialty Start Date End Date Pierre Evans MD PCP - General 08/23/[address] [place], [place] [address] documented as of this encounter
--- OUTSIDE RECORDS SUMMARY | 2022-02-11 21:06 | XMS_ITS | Encounter Summary ---
:1950 Author Organization [employer] Address [address], [place] [address] Care Team Providers Name Role Phone Pierre Evans MD Primary Care Provider Reason for Visit Reason Comments Refill Encounter Details Date Type Department Care Team Description 10/27/2014 Refill [facility] Pierre Evans MD Refill [address] bender [address] [place] [phone] ESTELITA [place]UTH [place] [id number] (Wo rk) Social History Tobacco Use Types Packs/Day Years Used Date Smoking Tobacco: Never Assessed Sex Assigned at Date Recorded Not on file documented as of this encounter Nursing Notes User, Refilliraida - 10/28/2014 4:26 PM CDT oxybutynin (DITROPAN) 5 mg tablet - MEDICATION STARTED: 09/03/2013 - LAST REFILLED ON: 09/03/2013, QTY: 180, Refills: 0, Sig: take 1 tablet by mouth 2 times daily. (unchanged) - REFILL: 6 months - RATIONALE: This refill should last until the patient is due for an office visit. - LAST QUALIFYING VISIT WITH PIERRE EVANS: 02/10/2014 - NEXT SCHEDULED VISIT: None Powered by [employer] (powering [employer]), Reference: [id number], 10/27/2014 8:43:05 AM CDT, Pool: PRCTR FP REFILL ([id number]) Corey Frederick LPN - 10/28/2014 4:26 PM CDT Pt. notified. Pierre Evans MD - 10/28/2014 2:34 PM CDT Done. Please notify pt. Thank you. Valentina Pack RN - 10/28/2014 9:29 AM CDT DOES NOT MEET REQUIREMENTS FOR REFILL Reason: Last filled 09/03/13 for 3 months, no refills since. Please advise on refills as appropriate. Requested Prescriptions Pending Prescriptions Disp Refills ??? oxybutynin (DITROPAN) 5 mg tablet 180 tablet 1 Sig: Take 1 tablet by mouth 2 times daily. documented in this encounter Plan of Treatment Not on filedocumented as of this encounter Visit Diagnoses Diagnosis Bladder spasm - Primary Other specified disorders of bladder documented in this encounter Care Teams Staff Anesthesiologist Relationship Specialty Start Date End Date Pierre Evans MD PCP - General 08/23/[address] [facility] [address] [place], [place] [address] documented as of this encounter
--- OUTSIDE RECORDS SUMMARY | 2022-02-11 21:06 | XMS_ITS | Encounter Summary ---
:1950 Author Organization [employer] Address [address] [place] [address] Care Team Providers Name Role Phone Pierre Evans MD Primary Care Provider Reason for Visit Reason Comments Medicare Encounter Details Date Type Department Care Team Description 12/24/2017 Telephone [facility] Pierre Evans MD Medicare [address] bender [address] [place] [address] [place] [phone] (Wo rk) Social History Tobacco Use Types [...] documented as of this encounter Nursing Notes Sagrario Patel E - 12/24/2017 11:15 AM CDT PC PSC MWST FOLLOW-UP Date of Last Physical: 12/25/2016 Date of Last Welcome to Medicare/Annual Wellness: Not in EPIC. Insurance Verification: Verified by: Website Insurance Coverage: Regular physical ok? Y -Patient is scheduled for WELL. No need to contact patient. Return Calls to Patients: -No call was needed. Mailers: -No wine consultant needed. Appointment Information: Visit Type: PHYSICAL Date: 12/26/2017 Dept: [facility] Provider: PIERRE EVANS Time: 8:00 AM Length: 30 min Appt Status: Scheduled documented in this encounter Plan of Treatment Not on filedocumented as of this encounter Visit Diagnoses Not on filedocumented in this encounter Care Teams Consumer Loan Manager Relationship Specialty Start Date End Date Pierre Evans MD PCP - General 08/23/10 [address] [facility] [place] [address] documented as of this encounter
--- OUTSIDE RECORDS SUMMARY | 2022-02-11 21:06 | XMS_ITS | Encounter Summary ---
:1950 Author Organization [employer] Address [address] [address] Care Team Providers Name Role Phone Pierre Evans MD Primary Care Provider Reason for Referral Consult/Transfer Care (Routine) - Closed Specialty Diagnoses / Procedures Referred By Contact Refer red To Contact Diagnoses Radiculopathy of lumbar region Pierre Evans MD [address] [place] [address] Referral ID Status Reason Start Date Expiration Date Visits Requ ested Visits Authorized [id number] Closed 05/31/2017 08/30/2018 1 1 Scheduling Instructions Your provider has recommended an appoint ment with [facility]. You may call [phone] to schedule your appoi ntment. If you do not schedule an appointment within the next 1 to 3 business days, we will call you to help arrange your appointment. We suggest you call your [facility] insurance company about your coverage and benefits for this appointment. 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 He needs to see neurosurgery for discussion about treatment options. Please notify pt. He can call [phone] for an appointment. Thank you. WRESTLING COACH Macrina Ramírez LPN - 05/31/2017 3:29 PM CST Called and spoke with pt and aware of MRi results and gave # to schedule appt. WRESTLING COACH documented in this encounter Plan of Treatment Scheduled Referrals Name Type Priority Associated Diagnoses Order S chedule Spine-Surgical Referral Routine Radiculopathy of lumbar Or dered: 05/31/2017 Consult-Adults region documented as of this encounter Visit Diagnoses Diagnosis Radiculopathy of lumbar region - Primary Thoracic or lumbosacral neuritis or radi culitis, unspecified documented in this encounter Care Teams Leather Crafter Relationship Specialty Start Date End Date Pierre Evans MD PCP - General 08/23/10 [address] [place] [address] documented as of this encounter
--- OUTSIDE RECORDS SUMMARY | 2022-02-11 21:06 | XMS_ITS | Encounter Summary ---
:1950 Author Organization [employer] Address [address], [place] [address] Care Team Providers Name Role Phone Pierre Evans MD Primary Care Provider Reason for Visit Reason Comments Labs Needed Encounter Details Date Type Department Care Team Description 01/21/2019 Telephone [facility] Medicine Pierre Evans MD Labs Needed [address] [place] [phone] [place] [phone] (Wo rk) Social History Tobacco Use Types [...] documented as of this encounter Nursing Notes Juliana Joiner LPN - 01/21/2019 4:18 PM CDT Patient will be coming 01/23 to have cholesterol lab checked. documented in this encounter Plan of Treatment Not on filedocumented as of this encounter Visit Diagnoses Not on filedocumented in this encounter Care Teams Director Summer Sessions Relationship Specialty Start Date End Date Pierre Evans MD PCP - General 08/23/10 [address] [facility] [place] [address] documented as of this encounter
--- OUTSIDE RECORDS SUMMARY | 2022-02-11 21:06 | XMS_ITS | Encounter Summary ---
:1950 [address] [facility] Address [address] [place] [address] Care Team Providers Name Role Phone Pierre Evans MD Primary Care Provider Reason for Referral Consult/Transfer Care (Routine) - Closed Specialty Diagnoses / Procedures Referred By Contact Refer red To Contact Diagnoses Chronic right-sided low back pain without sciatica Jony Cool PA-C [address] [facility] [address] [place], [place] [address] Referral ID Status Reason Start Date Expiration Date Visits Requ ested Visits Authorized [id number] Closed 06/26/2017 09/25/2018 1 1 Scheduling Instructions Your provider has recommended an appoint ment with [facility]. You may call [phone] to sche dule your appointment. If you do not schedule an appointment within the next 1 to 3 sine days, we will call you to help arrange your appointment. We suggest you call [employer] about your coverage and benefits for this appointme nt. L OPPORTUNITY COUNSELOR Reason for Visit Reason Comments CONSULT Consult/Transfer Care (Routine) - Closed Specialty Diagnoses / Procedures Referred By Contact Refer red To Contact Diagnoses Radiculopathy of lumbar region Pierre Evans MD [address] [facility] [address] [place], [place] [address] Referral ID Status Reason Start Date Expiration Date Visits Requ ested Visits Authorized [id number] Closed 05/31/2017 08/30/2018 1 1 Encounter Details Date Type Department Care Team Description 06/26/2017 Office Visit Specialty [facility] [address] Jony Cool Chronic right-sided Neurosurgery NADER Barnett low back pain without [address] sc iatica (Primary Dx) [address] [place] [address] [phone] (Wo rk) Social History Tobacco Use Types [...] Sign Reading Time Taken Comments Blood Pressure 130/70 06/26/2017 9:53 AM EQUAL OPPORTUNITY COUNSELOR Pulse 67 06/26/2017 9:53 AM EQUAL OPPORTUNITY COUNSELOR Temperature - - Respiratory Rate 14 06/26/2017 9:53 AM EQUAL OPPORTUNITY COUNSELOR Oxygen Saturation - - Inhaled Oxygen Concentration - - Weight 87.5 kg (193 lb) 06/26/2017 9:53 AM EQUAL OPPORTUNITY COUNSELOR Height 177.8 cm (5' 10) 06/26/2017 9:53 AM EQUAL OPPORTUNITY COUNSELOR Body Mass Index 27.69 06/26/2017 9:53 AM EQUAL OPPORTUNITY COUNSELOR documented in this encounter Progress Notes Jony Cool PA-C - 06/26/2017 10:00 AM CST NEUROSURGERY CLINIC CONSULT NOTE DATE OF VISIT: 06/26/2017 SUBJECTIVE: CHIEF COMPLAINT: Chief Complaint Patient presents with ??? CONSULT Corey Patterson is a pleasant 67 y.o. male who presents to the Neurosurgery clinic today for consultation on his low lumbar spine pain without any leg radiculopathy. He describes the symptoms as an intermittent, sharp, stabbing spasm like pain that initiates in the right low lumbar region and does not rad iates distally in any distribution. This pain is not accompanied with paresthesias, numbness or weakness. The symptoms have been present since 1987 as a result of falling down some stairs. His pain hasbecome more frequent and exacerbating since this last . Ne woke up and could not get outof bed. Neither a traumatic or provacative mechanism can be appreciated. He cannot appreciate what aggravates or alleviates the symptoms. He has participated in multiple conservative therapies to include landcare facilitator, home exercise program and a automanipulator machine in the [place]. Only the automanipulator has provided significant relief. There are no bowel or bladder changes. No other concerns are voiced. Outpatient Medications Prior to Visit Medication Sig ??? B Complex Vitamins (VITAMIN B COMPLEX OR) Take 1 tablet by mouth daily (every 24 hours). LW Comment:with biotin ??? esomeprazole (NEXIUM) 20 MG capsule Take 1 capsule by mouth 2 times daily (before meals). ??? lisinopril (ZESTRIL) 2.5 MG tablet Take 1 Tab by mouth daily. ??? Tadalafil (CIALIS) 5 MG tablet Take 1 Tab by mouth daily. No facility-administered medications prior to visit. No Known Allergies Past Medical History: Diagnosis Date ??? GERD (gastroesophageal reflux disease) ??? Hypertension (HRC) ??? Personal history of colonic polyps 2011 Repeat colonoscopy in 2016 Past Surgical History: Procedure Laterality Date ??? BLEPHAROPLASTY Bilateral 2015 ??? KNEE SURGERY Bilateral 1967, 1969 Left knee, Right Knee Family History Problem Relation Age of Onset ??? Cancer Mother Colon ??? Thyroid Disorder Sister Social History Substance Use Topics ??? Smoking status: Current Some Day Smoker Types: Cigars ??? Smokeless tobacco: Never Used ??? Alcohol use 3.0 oz/week 5 Standard drinks or equivalent per week Comment: 1 drink / day Review of Symptoms - Noted in HPI, otherwise negative. OBJECTIVE: BP 130/70 Pulse 67 Resp 14 Ht 5' 10 (177.8 cm) Wt 193 lb (50843 g) BMI 27.69 kg/m2 Estimated body mass index is 27.69 kg/(m^2) as calculated from the following: Height as of this encounter: 5' 10 (177.8 cm). Weight as of this encounter: 193 lb (42120 g). Body surface area is 2.08 meters squared. Imaging: Lumbar MRI Radiographic Findings: Full radiological report in chart. [facility] Exam: Pt examined in clinic. He appears comfortable and in no apparent distress, moving all extremities. Gait is non-antalgic. CN II-XII intact, alert and appropriate with conversation and following commands. Bilateral upper extremities with full strength including hand intrinsics and grasp. Bilateral bicep 1+/4 and tricep reflexes 1/4. Cervical spine is non tender to palpation. Hoffmans Sign neg. Sensationintact throughout. Normal cervical range of motion. LEFT RIGHT Iliopsoas 5/5 5/5 Quad 5/5 5/5 Hamstring 5/5 5/5 Gastrocnemius (PF) 5/5 5/5 Tibialis Ant. (DF) 5/5 5/5 EHL 5/5 5/5 Babinski negative negative Bilateral patellar 1+/4 and achilles reflex 1/4. Negative for clonus bilaterally. Negative for pain with Lasegue and Bragard's test. Normal sensation t/o bilaterally. Able to walk on toes and heels. Able to flex and extend back normally. Lumbar spine is non-tender to palpation. Calves are soft and non-tender bilaterally. Shopping Cart Sign neg. Non tender with palpation over the greater trochanters. ASSESSMENT: 1. Chronic right-sided low back pain without sciatica (HRC) PLAN: Mr. Patterson's most recent lumbar MRI does not exhibit any pathology in need of surgical intervention,if fact, his images look quite good. He is only experiencing intermittent low, right sided back painwithout any radicular symptoms [id number]. Based on his physical exam, imaging review, and past treatments, we feel that it would be in Mr. Patterson's best interest to try a conservative approach by participating in a program initiated by [facility] Rehabilitation. He did inquire about possible treatment options that PM&R may consider so we briefly discussed core stretching and strengthening exercises in conjunction with lumbar traction as possibilities. We also discussed the possibility of obtaining an epidural steroid injection, but again, we explained that treatments will be determined by the team at PM&R. We would like to see him back only if needed to further discuss possible surgical interventions. In the event that rajani duarte's symptoms worsen or change we would like to see him sooner. We did review the images together and we explained with an anatomical model his condition and the recommended treatment. We also discussed signs of a worsening problem that he should seek being evaluated. Patient verbalized understanding and is in agreement with the above plan. It has been a pleasure meeting Mr. Patterson. Thank you for involving us in his care. Respectfully, SELAM Pedersen PA-C Total time of 45 minutes with 35 minutes spent with patient reviewing films, providing education andcounseling, conservative treatment, surgical intervention, and further follow up. All imaging, physical findings, and the above plan have been reviewed with Dr. Perera. L OPPORTUNITY COUNSELOR documented in this encounter Plan of Treatment Scheduled Referrals Name Type Priority Associated Diagnoses Order S chedule Physical Medicine & Referral Routine Chronic right-sided l ow Ordered: 06/26/2017 Rehab Consult-Adult back pain without sciatica documented as of this encounter Visit Diagnoses Diagnosis Chronic right-sided low back pain withou t sciatica - Primary documented in this encounter Care Teams Media Strategist Relationship Specialty Start Date End Date Pierre Evans MD PCP - General 08/23/10 [address] [facility] [address] [place], [place] [address] documented as of this encounter
--- OUTSIDE RECORDS SUMMARY | 2022-02-11 21:06 | XMS_ITS | Encounter Summary ---
:1950 Author Organization [employer] Address [address], [place] [address] Care Team Providers Name Role Phone Pierre Evans MD Primary Care Provider Reason for Visit Reason Comments Annual Exam Encounter Details Date Type Department Care Team Description 12/15/2014 Office Visit [facility] Pierre Evans [facility] adult exam (Primary Dx); Elvis Barnett MD Mims's esophagus; [address] [place] Short-term memory loss; Drive [address] Screening cholesterol level; [place] Screeni ng for diabetes mellitus; [id number] Bladder spasm; [phone] Unspecified ess ential hypertension; (Work) Erectile dysfunction of organic origin; [phone] Gastroesophagea l reflux disease without esophagitis (Fax) Social History Tobacco Use Types Packs/Day Years Used Date Smoking Tobacco: Never Assessed Sex Assigned at Date Recorded Not on file documented as of this encounter Last Filed Vital Signs Vital Sign Reading Time Taken Comments Blood Pressure 125/75 12/15/2014 4:18 PM CDT Pulse 65 12/15/2014 4:18 PM CDT Temperature - - Respiratory Rate - - Oxygen Saturation - - Inhaled Oxygen Concentration - - Weight 84.8 kg (187 lb) 12/15/2014 4:18 PM CDT Height 177.8 cm (5' 10) 12/15/2014 4:18 PM CDT Body Mass Index 26.83 12/15/2014 4:18 PM CDT documented in this encounter Progress Notes Pierre Evans MD - 12/16/2014 10:33 AM CDT Progress Notes signed by Pierre Evans MD at 12/17/14 1402 Author: Pierre Evans MD Service: (none) Author Type: Physician Filed: 12/17/14 1403 Note Time: 12/17/14250 Status: Signed Occasional Caregiver: Pierre Evans MD (Physician) NAME: COREY FRASER MR#: [id number] CSN: [id number] AUTHENTICATING CLINICIAN: Pierre Evans MD CONFIRM #: [id number] LOC: 2702 CLINIC PHYSICAL DATE OF VISIT: 12/15/2014 : 1950 Corey is a 64-year-old gentleman who comes in today for a well exam. He has no major questions or concerns today, but does feel like his short-term memory is worse. Feels like he has a hard time retaining information that he just learned. He is forgetful. He also has a history of Mims's esophagus, and is in need of a repeat endoscopy. The remainder of a complete review of systems was negative. 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 He is , lives with his . Exercises 3-5 times a week. Smokes 1-2 cigars per week. Has approximately 1 alcoholic beverage per day. Feels like his diet has been okay. Weight has remained stable. PAST MEDICAL HISTORY: Significant for hypertension and gastroesophageal reflux. He has had bilateral knee arthroscopies. FAMILY HISTORY: Parents both . He has 3 sisters and 1 brother, who are all generally healthy. CURRENT MEDICATIONS: Reviewed and updated in [facility]. ALLERGIES: No known drug allergies. PHYSICAL EXAM: VITAL SIGNS: In [facility]. GENERALLY: A well-appearing 64-year-old male in no distress. HEAD, EYES, EARS, NOSE, AND THROAT: Within normal limits. Respiratory effort normal. LUNGS: CTA bilaterally. HEART: RRR. No M/G/R. ABDOMEN: Soft, NT, ND. No masses. GENITOURINARY EXAM: Normal male genitalia. No testicular mass or hernias. SKIN: Without rashes or suspicious moles. ASSESSMENT: 1. Well exam. 2. Possible short-term memory loss. 3. Mims's esophagus. PLAN: He is given referral to neuropsychology for testing. He will be set up for an endoscopy to look at his Mims's esophagus. We will check a cholesterol fractionation, blood glucose, electrolytes, and creatinine. He was given refills on his medications, and will follow up in our clinic p.r.n. 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
--- OUTSIDE RECORDS SUMMARY | 2022-02-11 21:06 | XMS_ITS | Encounter Summary ---
:1950 Author Organization [facility] Address [address] [place] [address] Care Team Providers Name Role Phone Pierre Evans MD Primary Care Provider Reason for Visit Procedure/Equipment (Routine) - Incomplete Specialty Diagnoses / Procedures Referred By Contact Refer red To Contact Procedures Provider, Foreign Images Foreign Image(S) MR Spine [address] [place] [address] Referral ID Status Reason Start Date Expiration Date Visits V isits Requested Authorized [id number] Incomplete 06/05/2017 09/04/2018 1 1 Encounter Details Date Type Department Care Team Description 05/26/2017 Imaging Radiology PACS Provider, Foreign Images [address] [facility] [address] [place] [address] [place] [address] Social History Tobacco Use Types Packs/Day Years [...] Name Priority Date/Time Associated Diagnosis Comme nts FOREIGN IMAGE(S) MR Routine 05/26/2017 12:35 PM R esults for this SPINE RECORD LIBRARIAN procedure are i n the results section. documented in this encounter Results Foreign Image(S) MR Spine (05/26/2017 12:35 PM RECORD LIBRARIAN) Specimen (Source) Anatomical Location Collection Method / Collectio n Time Received Time / Laterality Volume Narrative PN POCT - 06/05/2017 12:34 PM RECORD LIBRARIAN These outside images have been uploaded into PACS. If the results were provided, they will be located on the Me jadyn tab in the patient's chart. Foreign Images Provider RAD NON-REPORTABLES Performing Organization Address City/State/ZIP Code Phon e Number POCT PN POCT documented in this encounter Visit Diagnoses Not on filedocumented in this encounter Care Teams Thread Cutter Relationship Specialty Start Date End Date Pierre Evans MD PCP - General 08/23/10 [address] [facility] [place] [address] documented as of this encounter
--- OUTSIDE RECORDS SUMMARY | 2022-02-11 21:06 | XMS_ITS | Encounter Summary ---
:1950 Author Organization [employer] Address [address] [place] [address] Care Team Providers Name Role Phone Pierre Evasn MD Primary Care Provider Reason for Visit Reason Comments PRE-OP EXAM Encounter Details Date Type Department Care Team Description 11/29/2015 Pre-Op Visit Estelita Cruz [facility] Pierre Evans perative examination (Primary Dx); Elvis Barnett MD Essential hypertension; [address] Erect ile dysfunction of organic origin; Drive Dr Screen for colon cancer [facility] [place] [address] [phone] Social History Tobacco Use Types Packs/Day Years Used Date Smoking Tobacco: Never Assessed Sex Assigned at Date Recorded Not on file documented as of this encounter Last Filed Vital Signs Vital Sign Reading Time Taken Comments Blood Pressure 117/72 11/29/2015 2:10 PM CDT Pulse 68 11/29/2015 2:10 PM CDT Temperature - - Respiratory Rate - - Oxygen Saturation - - Inhaled Oxygen Concentration - - Weight 88 kg (194 lb) 11/29/2015 2:10 PM CDT Height 177.8 cm (5' 10) 11/29/2015 2:10 PM CDT Body Mass Index 27.84 11/29/2015 2:10 PM CDT documented in this encounter OR Notes H&P - Pierre Evans MD - 11/29/2015 3:43 PM CDT PREOPERATIVE ASSESSMENT Date of Service: 11/29/2015 Date of : 1950 Age: 65 y.o. Sex: male Preoperative Evaluation completed by: PIERRE EVANS MD Primary care physician: PIERRE EVANS MD [phone] CHIEF COMPLAINT Pre-Operative Evaluation ANTICIPATED PROCEDURE Bilateral blepharoplasty HISTORY OF PRESENT ILLNESS Eyelid drooping affecting vision. Risk Factors/Review of Systems: (Please see flowsheets for details) Cardiovascular risks negative except for: HTN: Renal risks negative except for: Neuro risks negative except for: GI risks negative except for: GERD: Pulmonary risks negative except for: Smoker: Amt/Quit Date:: Occasional cigar Endocrine/Nutrition risks negative except for: Hematologic Disease risks negative except for: Musculoskeletal/Skin risks negative except for: Mental Health risks negative except for: Code Status: Full Code, Other risk factors negative except for: Complete review of systems is otherwise negative. Patient Active Problem List Diagnosis ??? Gastroesophageal Reflux Disease ??? Bladder Spasm ??? Hypertension ??? Patellar Subluxation Recurrent ??? GERD (gastroesophageal reflux disease) ??? Mims's esophagus ??? Reflux esophagitis ??? Erectile dysfunction of organic origin ??? Bladder spasm ??? Personal history of colonic polyps Past Medical History Diagnosis Date ??? Personal history of colonic polyps 2011 Repeat colonoscopy in 2016 ??? Hypertension (HRC) ??? GERD (gastroesophageal reflux disease) Past Surgical History Procedure Laterality Date ??? Knee surgery Bilateral 1967, 1969 Left knee, Right Knee Family History Problem Relation Age of Onset ??? Cancer Mother Colon ??? Thyroid Disease Sister History Social History ??? Marital Status: Spouse Name: N/A ??? Number of Children: N/A ??? Years of Education: N/A Occupational History ??? Social History Main Topics ??? Smoking status: Former Smoker Types: Pipe, Cigars ??? Smokeless tobacco: Never Used ??? Alcohol Use: Yes Comment: Alcoholic Drinks/day: Freq:2-3/week, 1 drink ??? Drug Use: Not on file ??? Sexual Activity: Not on file Other Topics Concern ??? Not on file Social History Narrative Current Outpatient Prescriptions Medication Sig Dispense Refill ??? b complex vitamins tablet Take 1 tablet by mouth daily (every 24 hours). LW Comment:with biotin ??? esomeprazole (NEXIUM) 20 mg capsule Take 1 capsule by mouth 2 times daily (before meals). 0 ??? lisinopril (PRINIVIL, ZESTRIL) 2.5 mg tablet Take 1 tablet by mouth daily (every 24 hours). 90 tablet prn ??? oxybutynin (DITROPAN) 5 mg tablet Take 1 tablet by mouth 2 times daily. 180 tablet prn ??? tadalafil (CIALIS) 5 mg tablet Take 1 tablet by mouth daily (every 24 hours). 90 tablet 0 No current facility-administered medications for this visit. No Known Allergies PHYSICAL EXAMINATION Pulse: 68 (11/29/15 1410) BP: 117/72 mmHg (11/29/151409) Height: 5' 10 (177.8 cm) (11/29/151409) Weight: 194 lb (87.998 kg) (11/29/151409) BMI (Calculated): 27.89 (11/29/151409) General Appearance: Normal HEENT: Normal Neck: Normal Lungs: Normal Heart: Normal Abdomen: Normal Extremities: Normal Skin: Normal Neurologic: Normal TEST RESULTS AND DATE EKG done: Today: 11/29/2015. Normal. Labs done: No ASSESSMENT 1. Preoperative Assessment: This patient has been examined by me today and has been found to be a suitable candidate for surgery: Yes 2. RECOMMENDATIONS AND PLAN Day of surgery testing: none Medication recommendations including insulin / diabetes: no adjustments needed. Additional screening recommended: no Consult (Cardiology/other): no Additional test results attached: none Recommend RT assessment post op for Oxygenation and ventilation monitoring: no Other: no - No solid food after midnight on day before surgery. - No clear liquids for 4 hours before surgery - water, black coffee, clear tea ONLY - No milk for 6 hours before surgery ABOVE RECOMMENDATIONS WERE REVIEWED WITH PATIENT: yes PIERRE EVANS MD 11/29/2015 documented in this encounter Plan of Treatment Scheduled Orders Name Type Priority Associated Diagnoses Order S chedule Endoscopy, colon, GI Routine Screen for colon cancer Expected: 11/29/2015, diagnostic Expires: 2017 documented as of this encounter Procedures Procedure Name Priority Date/Time Associated Diagnosis Comme nts ECG 12 LEAD Routine 11/29/2015 2:51 PM Essential Results f or this OUTPATIENT CDT hypertension procedure are i n the results section. documented in this encounter Results ECG 12 Lead Outpatient (11/29/2015 2:51 PM CDT) P athologist Signature Ventricular Rate 65 BPM [facility] Atrial Rate 65 BPM [facility] P-R Interval 180 ms [facility] QRS Duration 98 ms [facility] QT 390 ms [facility] QTc 405 ms [facility] P [place] 53 degrees [facility] R [place] 30 degrees [facility] T [place] 39 degrees [facility] Specimen (Source) Anatomical Collection Method Collection Time Re ceived Time Location / / Volume Laterality 11/29/2015 2:51 PM CDT Narrative [facility] - 08/21/2019 12:22 AM CDT Sinus rhythm Normal ECG No previous ECGs available Confirmed by MARTHA WU ([id number]), index editor CAITLIN LOYA () on 11/29/2015 10:20:46 PM Procedure Note Epic, Internal Processing - 08/21/2019Fo rmatting of this note might be different from the original. 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
--- OUTSIDE RECORDS SUMMARY | 2022-02-11 21:06 | XMS_ITS | Encounter Summary ---
:1950 Author Organization [employer] Address [address] [address] Care Team Providers Name Role Phone Pierre Evans MD Primary Care Provider Reason for Visit Reason Comments Refill atorvastatin (LIPITOR) 20 MG tablet [Pharmacy Med Name: ATORVASTATIN CALCIUM 20MG TABS] Encounter Details Date Type Department Care Team Description 11/25/2019 Refill Estelita Ruth [facility] Pierre Evans R efjorje (atorvastatin Medicine (LIPITOR) 20 MG tablet [address]ender [address] [place] [address] ATORVASTATIN CALCIUM 20MG [phone] [place]ARTIN [place] TABS]) [address] (Wo rk) Social History Tobacco Use Types [...] documented as of this encounter Nursing Notes Tammi Harper - 11/25/2019 4:02 PM CDT Pt is sonia for 12/01 Catherine Amos RN - 11/25/2019 3:45 PM CDT VIDEO VISIT APPOINTMENT NEEDED Please notify patient to schedule an appointment within 90 days. Requested Prescriptions Pending Prescriptions Disp Refills ??? atorvastatin (LIPITOR) 20 MG tablet [Pharmacy Med Name: ATORVASTATIN CALCIUM 20MG TABS] 90 Tablet 0 Sig: TAKE ONE TABLET BY MOUTH EVERY DAY Interface, Out Texifter Prov Query - 11/25/2019 2:33 PM CDT atorvastatin (LIPITOR) 20 MG tablet [Pharmacy Med Name: ATORVASTATIN CALCIUM 20MG TABS] Medication started: 12/06/2018 Last ordered by PIERRE EVANS: 12/06/2018 (354 days ago) QTY: 90, Refills: 3, Sig: take 1 tablet by mouth daily. (changed but equivalent) -> Refill x 3 months (until due for an office visit) Last qualifying visit: 12/05/2018 (with PIERRE EVANS) Next scheduled visit: None [facility]ered by [email or web address], Reference: [id number], 11/25/2019 2:33:14 PM CDT, [facility]: [facility] ([id number]) documented in this encounter Plan of Treatment Not on filedocumented as of this encounter Visit Diagnoses Diagnosis Hyperlipidemia, unspecified hyperlipidem ia type (HRC) documented in this encounter Care Teams Chain Saw Driver Relationship Specialty Start Date End Date Pierre Evans MD PCP - General 08/23/10 [address] [facility] [place] [address] documented as of this encounter
--- OUTSIDE RECORDS SUMMARY | 2022-02-11 21:07 | XMS_ITS | Encounter Summary ---
:1950 Author Organization [facility] Address [address] [place] [address] Care Team Providers Name Role Phone Pierre Evans MD Primary Care Provider Reason for Visit Reason Comments Esophageal Reflux Encounter Details Date Type Department Care Team Description 03/28/2012 Office Visit Pierre Busch Eslizette hageal reflux; Elvis Barnett MD Hiatal hernia [address] [place], [place] [address] [place] [address] Social History Tobacco Use Types Packs/Day Years Used Date Smoking Tobacco: Never Assessed Sex Assigned at Date Recorded Not on file documented as of this encounter Last Filed Vital Signs Vital Sign Reading Time Taken Comments Blood Pressure 107/76 03/28/2012 12:00 PM SCRUBBER SYSTEM ATTENDANT Pulse 73 03/28/2012 12:00 PM SCRUBBER SYSTEM ATTENDANT Temperature - - Respiratory Rate - - Oxygen Saturation - - Inhaled Oxygen Concentration - - Weight 88.5 kg (195 lb) 03/28/2012 12:00 PM SCRUBBER SYSTEM ATTENDANT Height - - Body Mass Index 27.98 02/06/2012 2:07 PM CDT documented in this encounter Progress Notes Pierre Evans MD - 03/28/2012 12:47 PM CST Progress Notes signed by Pierre Evans MD at 03/29/12819 Author: Pierre Evans MD Service: (none) Author Type: Physician Filed: 03/29/12819 Note Time: 03/28/12 1247 Status: Signed Supervisor Boat Outfitting: Pierre Evans MD (Physician) NAME: COREY FRASER MR#: [id number] CSN: [id number] AUTHENTICATING CLINICIAN: Pierre Evans MD CONFIRM #: [id number] LOC: 2702 CLINIC PROGRESS NOTE DATE OF VISIT: 03/28/2012 : 1950 Corey is a 62-year-old gentleman who comes in today with chief complaint of ongoing coughing, gastroesophageal reflux symptoms. He had an endoscopy done 2 years ago which showed a small hiatal hernia, but he now thinks things are getting worse. He is currently taking Prilosec 20 mg daily, but having delia kthrough symptoms, especially with coughing. When he eats, he feels like his food is sometimes regurgitating and is not going down into his stomach. No other concerns or complaints today. CURRENT MEDICATIONS: Reviewed and updated in [facility]. PHYSICAL EXAM: VITAL SIGNS: In [facility]. GENERAL: Well-appearing, 62-year-old male in no distress. ASSESSMENT: Gastroesophageal reflux and hiatal hernia. PLAN: He needs another endoscopy. He is encouraged to take his Prilosec twice a day. Will follow up in the [facility] p.r.n. AJT:KASHIF C: CONFIRM #: [id number] BBER SYSTEM ATTENDANT documented in this encounter Plan of Treatment Not on filedocumented as of this encounter Visit Diagnoses Diagnosis Esophageal reflux Hiatal hernia Diaphragmatic hernia without mention of obstruction or gangrene documented in this encounter Care Teams Editor Sound Relationship Specialty Start Date End Date Pierre Evans MD PCP - General 08/23/10 [address] [facility] [place] [address] documented as of this encounter
--- OUTSIDE RECORDS SUMMARY | 2022-02-11 21:07 | XMS_ITS | Encounter Summary ---
:1950 Author Organization [facility] Address [address] [place] [address] Care Team Providers Name Role Phone Pierre Evans MD Primary Care Provider Encounter Details Date Type Department Care Team Description 11/18/2010 PN Conversion Only [facility] CON[facility] Pierre Evans, [address] [place] [address] [place] [address] (Wo rk) Social History Tobacco Use Types Packs/Day Years Used Date Smoking Tobacco: Never Assessed Sex Assigned at Date Recorded Not on file documented as of this encounter Plan of Treatment Not on filedocumented as of this encounter Procedures Procedure Name Priority Date/Time Associated Comments Diagnosis GLUCOSE Routine 11/18/2010 12:09 Results for this PM CDT procedure are i n the results section. LIPID PANEL AND Routine 11/18/2010 12:09 Results for this DIRECT LDL(IF NEEDED) PM CDT proced ure are in the results section. CREATININE / GFR Routine 11/18/2010 12:09 Results for this PM CDT procedure are i n the results section. PROSTATIC SPECIFIC Routine 11/18/2010 12:09 Resul ts for this ANTIGEN(SCREEN) PM CDT procedure ar e in the results section. ELECTROLYTE PANEL Routine 11/18/2010 12:09 Result s for this PM CDT procedure are i n the results section. documented in this encounter Results Prostatic Specific Antigen (Screen) (11/18/2010 12:09 PM CDT) P athologist Signature Prostate 1.5 0.0 - 4.0 HP CONVERSION Specific ng/mL Antigen Specimen (Source) Anatomical Collection Method Collection Time Re ceived Time Location / / Volume Laterality 11/18/2010 12:09 PM CDT Pierre Evans MD LAB_1 Performing Organization Address City/[facility]/ZIP Code Phon e Number HP CONVERSION (ABNORMAL) Lipid Panel and Direct LDL(If Needed) (11/18/2010 12:09 PM CDT) Patholo gist Method Time Signature Cholesterol 183 0 - 200 HP CONVERSION mg/dL Triglycerides 150 (H) 0 - 149 HP CONVERSION mg/dL HDL Cholesterol 30 (L) >39 mg/dL HP CONVERSION Cholesterol/HDL 6.1 No normal HP CONVERSION Ratio Screen range LDL Calculated 123 19 - 130 HP CONVERSION mg/dL Length Of Fast 12 No normal HP CONVERSION range Specimen (Source) Anatomical Collection Method Collection Time Re ceived Time Location / / Volume Laterality 11/18/2010 12:09 PM CDT Pierre Evans MD LAB_1 Performing Organization Address [facility] Phon e Number HP CONVERSION Electrolyte Panel (11/18/2010 12:09 PM CDT) P athologist Signature Sodium 142 137 - 147 HP CONVERSION mEq/L Potassium 4.5 3.5 - 5.2 HP CONVERSION mEq/L Chloride 105 98 - 110 HP CONVERSION mEq/L Bicarbonate 30 23 - 33 HP CONVERSION mmol/L Specimen (Source) Anatomical Collection Method Collection Time Re ceived Time Location / / Volume Laterality 11/18/2010 12:09 PM CDT Pierre Evans MD LAB_1 Performing Organization Address City/[facility] Code Phon e Number HP CONVERSION GLUCOSE (11/18/2010 12:09 PM CDT) P athologist Signature Lab Glucose 93 60 - 100 HP CONVERSION mg/dL Specimen (Source) Anatomical Collection Method Collection Time Re ceived Time Location / / Volume Laterality 11/18/2010 12:09 PM CDT Pierre Evans MD LAB_1 Performing Organization Address City/[facility]/ZIP Code Phon e Number HP CONVERSION Creatinine / GFR (11/18/2010 12:09 PM CDT) P athologist Signature Creatinine 1.2 0.4 - 1.3 HP CONVERSION Serum mg/dL Est GFR >60 >60 HP CONVERSION Am mL/min/1.7 Est GFR Non-Afr >60 >60 HP CONVERSION Am mL/min/1.7 Comment: Normal>60, moderate decrease 30 - 59, se colin decrease 15 - 29, renal failure <15 mL/min/1.73 m2 NOTE: ??Choose the eGFR result above donavon ropriate for the race of the patient. Specimen (Source) Anatomical Collection Method Collection Time Re ceived Time Location / / Volume Laterality 11/18/2010 12:09 PM CDT Pierre Evans MD LAB_1 Performing Organization Address City/State/ZIP Code Phon e Number HP CONVERSION documented in this encounter Visit Diagnoses Not on filedocumented in this encounter Care Teams Trimming Assembler Relationship Specialty Start Date End Date Pierre Evans MD PCP - General 08/23/[address] [place] [address] documented as of this encounter
--- OUTSIDE RECORDS SUMMARY | 2022-02-11 21:07 | XMS_ITS | Encounter Summary ---
:1950 Author Organization [employer] Address [address] [address] Care Team Providers Name Role Phone Pierre Evans MD Primary Care Provider Encounter Details Date Type Department Care Team Description 02/03/2011 [facility] 650 0 Endoscopy [address] [place] [address] Social History Tobacco Use Types Packs/Day Years Used Date Smoking Tobacco: Never Assessed Sex Assigned at Date Recorded Not on file documented as of this encounter Last Filed Vital Signs Vital Sign Reading Time Taken Comments Blood Pressure 119/84 02/03/2011 11:50 AM CDT Pulse 74 02/03/2011 11:50 AM CDT Temperature - - Respiratory Rate 16 02/03/2011 11:50 AM CDT Oxygen Saturation 95% 02/03/2011 11:50 AM CDT Inhaled Oxygen Concentration - - Weight 86.2 kg (190 lb) 02/03/2011 10:49 AM CDT Height 177.8 cm (5' 10) 02/03/2011 10:49 AM CDT Body Mass Index 27.26 02/03/2011 10:49 AM CDT documented in this encounter Medications at Time of Discharge Medication Sig Dispensed Refills Start Date End Date doxazosin (AKA CARDURA) Take 1 tablet by mouth 90 0 04/07/2010 04/19/2011 4 MG tablet daily (every 24 hours). LW Addl Instr:Indicated for: High Blood Pressure lisinopril (AKA Take 1 tablet by mouth 30 3 11/19/19 11 04/19/2011 ZESTRIL) 2.5 MG tablet daily (every 24 hours). LW Addl Instr:Indicated for: High Blood Pressure omeprazole ([facility] Take 1 tablet by mouth 90 3 04/07/20 10 02/07/2013 OMEPRAZOLE) 20 MG daily (every 24 enteric coated tablet hours). LW Addl Instr:Indicated for: Acid Reflux Polyethylene Glycol Take by mouth for 2 4000 mL 0 011 04/19/2011 3350 (PEG 3350 OR) doses. Take as Directed in Brochure. 2000 cc at 6pm evening before and 4-5 hours before leaving home day of exam. Tadalafil (AKA CIALIS) Take 1 tablet by mouth 15 12 1 06/07/2009 04/19/2011 20 MG tablet as needed. LW Addl Instr:Take 30-60 minutes prior to sexual activity. Effects may last up to 36 hours. Indicated for: Erectile Dysfunction trospium (SANCTURA) 20 Take 1 tablet by mouth 180 0 1 06/07/2009 04/19/2011 MG tablet 2 times daily. LW Addl Instr:Indicated for: Overactive Bladder unknown Indications: PN: 0 11/18/2010 04/19/20 11 medicationIndications: JIGAR MILLER Sun JIGAR MILLER Feb 03, 2011 10:40 AM no 2010 10:40 AM no asa, motrin or aleve asa, motrin or aleve for four days..,. for four days..,. B Complex Vitamins Take 1 tablet by mouth 0 11/1802/25/2020 (VITAMIN B COMPLEX OR) daily (every 24 hours). LW Comment:with biotin documented as of this encounter Progress Notes Jigar Miller RN - 02/03/2011 11:34 AM CDT pt tolerated the procedure very well... documented in this encounter Procedure Notes Lloyd Germain MD - 02/03/2011 10:30 AM CDT Procedures signed by Lloyd Germain MD at 02/03/11 1030 Author: Lloyd Germain MD Service: (none) Author Type: Physician Filed: 07/10/11 2352 Note Time: 02/03/11 1030 Status: Addendum Red Mud Thickener Operator: Lloyd Germain MD (Physician) Related Notes: Original Note by Lloyd Germain MD (Physician) filed at 02/03/11 1153 Patient Name: Corey Patterson Gender: Frank Procedure Date: 02/03/2011 10:30:00 AM SSN: [id number] Date of : 1950 Age: 61 Note Status: Machine Operator Assistant Override Attending MD: Lloyd Germain MD Procedure: Colonoscopy Indications: High risk colon cancer surveillance: Personal history of colonic polyps, Last colonoscopy 5 years ago Providers: Lloyd Germain MD, Jigar Miller RN Referring MD: Pierre Evans MD Medicines: Midazolam 2 mg IV, Fentanyl 100 micrograms IV Complications: No immediate complications. Estimated blood loss: Minimal. Procedure: - Prior to the procedure, a History and Physical was performed, and patient medications and allergies were reviewed. The patient is competent. The risks and benefits of the procedure and the sedation options and risks were discussed with the patient. All questions were answered and informed consent was obtained. Patient identification and proposed procedure were verified by the physician in the procedure room at 10:58 AM. Mental Status Examination: alert and oriented. Airway Examination: normal oropharyngeal airway and neck mobility. Respiratory Examination: clear to auscultation. CV Examination: normal. ASA Grade Assessment: I - A normal, healthy patient. After reviewing the risks and benefits, the patient was deemed in satisfactory condition to undergo the procedure. The anesthesia plan was to use moderate sedation / analgesia (conscious sedation). Immediately prior to administration of medications, the patient was re-assessed for adequacy to receive sedatives. The heart rate, respiratory rate, oxygen saturations, blood pressure, adequacy of pulmonary ventilation, and response to care were monitored throughout the procedure. The physical status of the patient was re-assessed after the procedure. After I obtained informed consent, the scope was passed under direct vision. Throughout the procedure, the patient's blood pressure, pulse, and oxygen saturations were monitored continuously. The [id number] colonoscope was introduced through the anus and advanced to the cecum, identified by appendiceal orifice & ileocecal valve. The colonoscopy was performed without difficulty. The patient tolerated the procedure well. The quality of the bowel preparation was excellent. Findings: The perianal and digital rectal examinations were normal. A carpet-like polyp was found in the proximal ascending colon. The polyp was 2 mm in size. The polyp was removed with a cold biopsy forceps. Resection and retrieval were complete. A few small-mouthed diverticula were found from sigmoid to descending colon. Impression: - One 2 mm polyp in the proximal ascending colon. Resected and retrieved. - Diverticulosis from sigmoid to descending colon. Recommendation: - Await pathology results. - High fiber diet. - Call your siblings and tell them they need to start every 5 year colonoscopies when they turn 40. CPT4 Code(s): 29110, Colonoscopy, flexible, proximal to splenic flexure; with biopsy, single or multiple ICD9 Code(s): 562.10, Diverticulosis of colon (without mention of hemorrhage) V12.72, Personal history of colonic polyps 211.3, Benign neoplasm of colon CPT Copyright 2010 [employer]. All Rights Reserved. The codes documented in this report are preliminary and upon doll wig maker review may be revised to meet current compliance requirements. Lloyd Germain MD Signed Date: 02/03/2011 11:42:18 AM Number of Addenda: 0 Note initiated on 02/03/2011 10:29:55 AM Lloyd Germain MD - 02/03/2011 10:30 AM CDT Procedures signed by Lloyd Germain MD at 02/03/11 1030 Author: Lloyd Germain MD Service: (none) Author Type: Physician Filed: 07/10/11 1227 Note Time: 02/03/11 1030 Status: Addendum Red Mud Thickener Operator: Lloyd Germain MD (Physician) Related Notes: Original Note by Lloyd Germain MD (Physician) filed at 02/03/11 1142 Patient Name: Corey Patterson Gender: Frank Procedure Date: 02/03/2011 10:30:00 AM SSN: [id number] Date of : 1950 Age: 61 Note Status: Finalized Attending MD: Lloyd Germain MD Procedure: Colonoscopy Indications: High risk colon cancer surveillance: Personal history of colonic polyps, Last colonoscopy 5 years ago Providers: Lloyd Germain MD, Jigar Miller RN Referring MD: Pierre Evans MD Medicines: Midazolam 2 mg IV, Fentanyl 100 micrograms IV Complications: No immediate complications. Estimated blood loss: Minimal. Procedure: - Prior to the procedure, a History and Physical was performed, and patient medications and allergies were reviewed. The patient is competent. The risks and benefits of the procedure and the sedation options and risks were discussed with the patient. All questions were answered and informed consent was obtained. Patient identification and proposed procedure were verified by the physician in the procedure room at 10:58 AM. Mental Status Examination: alert and oriented. Airway Examination: normal oropharyngeal airway and neck mobility. Respiratory Examination: clear to auscultation. CV Examination: normal. ASA Grade Assessment: I - A normal, healthy patient. After reviewing the risks and benefits, the patient was deemed in satisfactory condition to undergo the procedure. The anesthesia plan was to use moderate sedation / analgesia (conscious sedation). Immediately prior to administration of medications, the patient was re-assessed for adequacy to receive sedatives. The heart rate, respiratory rate, oxygen saturations, blood pressure, adequacy of pulmonary ventilation, and response to care were monitored throughout the procedure. The physical status of the patient was re-assessed after the procedure. After I obtained informed consent, the scope was passed under direct vision. Throughout the procedure, the patient's blood pressure, pulse, and oxygen saturations were monitored continuously. The [id number] colonoscope was introduced through the anus and advanced to the cecum, identified by appendiceal orifice & ileocecal valve. The colonoscopy was performed without difficulty. The patient tolerated the procedure well. The quality of the bowel preparation was excellent. Findings: The perianal and digital rectal examinations were normal. A carpet-like polyp was found in the proximal ascending colon. The polyp was 2 mm in size. The polyp was removed with a cold biopsy forceps. Resection and retrieval were complete. A few small-mouthed diverticula were found from sigmoid to descending colon. Impression: - One 2 mm polyp in the proximal ascending colon. Resected and retrieved. - Diverticulosis from sigmoid to descending colon. Recommendation: - Await pathology results. - High fiber diet. CPT4 Code(s): 34726, Colonoscopy, flexible, proximal to splenic flexure; with biopsy, single or multiple ICD9 Code(s): 562.10, Diverticulosis of colon (without mention of hemorrhage) V12.72, Personal history of colonic polyps 211.3, Benign neoplasm of colon CPT Copyright 2010 [employer]. All Rights Reserved. The codes documented in this report are preliminary and upon doll wig maker review may be revised to meet current compliance requirements. Lloyd Germain MD Signed Date: 02/03/2011 11:42:18 AM Number of Addenda: 0 Note initiated on 02/03/2011 10:29:55 AM documented in this encounter Miscellaneous Notes Medication History - William Allen MD - 02/03/2011 11:59 PM CDT INPATIENT MEDS Encounter Date: 02/03/11 0.9% sodium chloride latex free syringe 10 mL Start Date:02/03/11, End Date:02/04/11, Frequency:PRN Taken Dose Action User Route Site Recorded Comment Reason 02/03/11 1133 10 mL Given Jigar Miller RN Intravenous - 02/03/11 1133 - - Fentanyl Citrate (PF) (SUBLIMAZE) injection 25-100 mcg Start Date:02/03/11, End Date:02/04/11, Frequency:PRN Taken Dose Action User Route Site Recorded Comment Reason 02/03/11 1133 100 mcg Given Jigar Miller RN Intravenous - 02/03/11 1133 - - midazolam (VERSED) injection 0.25-1 mg Start Date:02/03/11, End Date:02/04/11, Frequency:PRN Taken Dose Action User Route Site Recorded Comment Reason 02/03/11 1133 2 mg Given Jigar Miller RN Intravenous - 02/03/11 1134 - - ondansetron (ZOFRAN) injection 4 mg Start Date:02/03/11, End Date:02/04/11, Frequency:ONCE PRN *No Administrations Recorded Fentanyl Citrate (PF) (SUBLIMAZE) 50 mcg/mL injection Start Date:02/03/11, End Date:-, Frequency:- *No Administrations Recorded midazolam (VERSED) 1 mg/mL injection Start Date:02/03/11, End Date:-, Frequency:- *No Administrations Recorded 0.9% sodium chloride latex free syringe Start Date:02/03/11, End Date:-, Frequency:- *No Administrations Recorded documented in this encounter Plan of Treatment Not on filedocumented as of this encounter Procedures Procedure Name Priority Date/Time Associated Comments Diagnosis ENDOSCOPY OBTAINED Routine 02/03/2011 11:37 AM Re sults for this ANATOMICAL PATH CDT procedure ar e in the results section. SURGICAL CHIP PALAFOX Routine 02/03/2011 7:00 AM Re sults for this NICOLLET CDT procedure are i n the results section. documented in this encounter Results ENDOSCOPY OBTAINED ANATOMICAL PATH (02/03/2011 11:37 AM CDT) P athologist Signature Endo Tis See Path HP CONVERSION Specimen (Source) Anatomical Collection Method Collection Time Re ceived Time Location / / Volume Laterality 02/03/2011 11:37 AM CDT Lloyd Germain MD LAB_1 Performing Organization Address City/State/ZIP Code Phon e Number HP CONVERSION Pathology Report (02/03/2011 7:00 AM CDT) Patholo gist Method Time Signature Path: ?Final SURGICAL PATHOLOGY REP ORT HP CONVERSION Pathology #: [id number] ? Date Obtained: 02/03/2011 ?Date Received: 02/03/2011 DIAGNOSIS: Colonic mucosal biopsy, ascending polyp: - ??No diagnostic abnormality recognized. ?RAYO ALONSO MD ? (electronic signatur e) ? 02/07/2011 ??12:3 7 CLINICAL NOTES: Family history of colon cancer ORGAN/TISSUE SITE: Polyp ascending colon GROSS DESCRIPTION: The specimen is labeled ascending and consists of a singl e doss mucosal tissue fragment measuring 0.2 cm in greatest dimens ion. Entirely submitted in cassette [id number]. MICROSCOPIC DESCRIPTION: The microscopic examination substantiates the diagnosis cit ed. CPT Codes: ?31305 x 1 ? End of Report Specimen Anatomical Collection Method Collection Time Receive d Time (Source) Location / / Volume Laterality COLON STRUCTURE / 02/03/2011 7:00 AM 01/19 7:00 Unknown CDT AM CDT Lloyd Germain MD LAB_1 Performing Organization Address City/State/ZIP Code Phon e Number HP CONVERSION documented in this encounter Visit Diagnoses Not on filedocumented in this encounter Care Teams Leather Toggler Relationship Specialty Start Date End Date Pierre Evans MD PCP - General 08/23/10 [address] [facility] [place] [address] documented as of this encounter
--- OUTSIDE RECORDS SUMMARY | 2022-02-11 21:07 | XMS_ITS | Clinical Summary ---
:1950 Author Organization [facility] Address [address] [place] [address] Care Team Providers Name Role Phone Unavailable Primary Care Provider Unavailable Source Comments Patient records contain information from all sites at [facility]. For routine questions regarding patient records, call [phone] during business hours, M-F 8:00 AM - 5:00 PM Central Time. Record requests for emergency care only can be directed to [phone] at any time.[facility] Allergies No known active allergies Immunizations Name Administration Dates Next Due SARS-COV-2 (COVID-19) - IRENE (J&J) 07/23/2020 Social History Tobacco Use Types Packs/Day Years Used Date Smoking Tobacco: Never Assessed Sex Assigned at Date Recorded Not on file Plan of Treatment Health Maintenance Due Date Last Done Comments CT Colonography 1950 Cologuard 1950 Colonoscopy 1950 Colorectal Cancer Screening 1950 FIT 1950 Fasting Glucose for Diabetes 1950 Screening Hepatitis C Screening 1950 Depression Screening (Annual PHQ-2) 05/21/2021 Fall Risk Screen (Annual) 05/21/2021 COVID-19 Vaccine (4 - Booster for 12/20/2021 10/25/2021, , Irene series) 07/23/2020 Influenza Vaccine (#1) 2022 02/03/2020 DTaP,Tdap,and Td Vaccines (3 - Td or 03/10/2031 03/10/2021, 11/18/2010 Tdap) Pneumococcal vaccine (65+ years) Completed 12/05/2018, 07/2017 Zoster Vaccines Completed 05/28/2020, 03/02/2020, 02/06/2012 Insurance Payer Benefit Plan / Subscriber ID Effective Dates Phone Addre ss Type Group MEDICARE MEDICARE A AND B [id number] 2018-Present [address] [place] [address]
--- OUTSIDE RECORDS SUMMARY | 2022-02-11 21:07 | XMS_ITS | Encounter Summary ---
:1950 Author Organization [facility] Address [address] [address] Care Team Providers Name Role Phone Pierre Evans MD Primary Care Provider Encounter Details Date Type Department Care Team Description 07/02/2009 Office Visit [facility] Kasey Bhagat, OD [address] [place] [address] [place] [address] [place], [place] [phone] (Wo rk) Social History Tobacco Use Types Packs/Day Years Used Date Smoking Tobacco: Never Assessed Sex Assigned at Date Recorded Not on file documented as of this encounter Plan of Treatment Not on filedocumented as of this encounter Visit Diagnoses Not on filedocumented in this encounter Care Teams Outdoor Studies Director Relationship Specialty Start Date End Date Pierre Evans MD PCP - General 08/23/10 [address] [place] [address] documented as of this encounter
--- OUTSIDE RECORDS SUMMARY | 2022-02-11 21:07 | XMS_ITS | Encounter Summary ---
:1950 Author Organization [employer] Address [address] [place] [address] Care Team Providers Name Role Phone Pierre Evans MD Primary Care Provider Reason for Visit Reason Comments Annual Exam Encounter Details Date Type Department Care Team Description 02/07/2013 Office Visit [facility] Family Pierre Evans [facility] adult exam (Primary Dx); Elvis Barnett MD Unspecified essential hypertension; [address] tt's esophagus; Drive Dr Mohinder gorman; [place] [address] Bladder spasm; [phone] Erectile dysfunction of organic origin; [phone] Screening for l ipoid disorders; (Work) Screening for diabetes mellitus Social History Tobacco Use Types Packs/Day Years Used Date Smoking Tobacco: Never Assessed Sex Assigned at Date Recorded Not on file documented as of this encounter Last Filed Vital Signs Vital Sign Reading Time Taken Comments Blood Pressure 122/88 02/07/2013 10:26 AM CDT Pulse 80 02/07/2013 10:26 AM CDT Temperature - - Respiratory Rate - - Oxygen Saturation - - Inhaled Oxygen Concentration - - Weight 83 kg (183 lb) 02/07/2013 10:26 AM CDT Height 179.1 cm (5' 10.5) 02/07/2013 10:26 AM CDT Body Mass Index 25.89 02/07/2013 10:26 AM CDT documented in this encounter Progress Notes Pierre Evans MD - 02/07/2013 1:26 PM CDT H&P signed by Pierre Evans MD at 02/15/13 112 Author: Pierre Evans MD Service: (none) Author Type: Physician Filed: 02/15/13 1121 Note Time: 02/07/13 141 Status: Signed Human Resources Recruiter: Pierre Evans MD (Physician) NAME: COREY FRASER MR#: [id number] CSN: [id number] AUTHENTICATING CLINICIAN: Pierre Evans MD CONFIRM #: [id number] LOC: 2702 CLINIC PHYSICAL DATE OF VISIT: 02/07/2013 : 1950 Corey is a 63-year-old gentleman who comes in today for a well exam. He has a few concerns which were addressed today. Had a history of heartburn and takes medication regularly for that. He has also had issues with bladder spasms on medication for that, generally well controlled. He is in need of refills on all of his medications. 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 He is , lives with his . Exercises 3-5 times a week. Does not use tobacco. Drinks approximately 6 alcoholic beverages per week. Feels like his diet has been healthy. Weight has remained stable. PAST MEDICAL HISTORY: Significant for hypertension, history of gastroesophageal reflux and Mims's esophagus. He is in need of a repeat endoscopy. He is up to date on his colonoscopy. PAST SURGICAL HISTORY: Significant for 2 knee arthroscopies. FAMILY HISTORY: Mother at age 77 of colon cancer. Father age 87. He has 3 sisters and 1 brother. One of his sisters has low thyroid. CURRENT MEDICATIONS: Reviewed and updated in [facility]. ALLERGIES: No known drug allergies. PHYSICAL EXAM: VITAL SIGNS: In [facility]. GENERAL: A well-appearing 63-year-old male in no distress. HEENT: Head, eyes, ears, nose, and throat within normal limits. Respiratory effort normal. LUNGS: CTA bilaterally. HEART: RRR. No MGR. ABDOMEN: Soft, NT, ND. No masses. GENITOURINARY: Normal male genitalia. No testicular masses or hernias. SKIN: Examination of his skin reveals a rash consistent with tinea versicolor on his chest. ASSESSMENT: 1. Well exam. 2. Hypertension. 3. Tinea versicolor. 4. Mims's esophagus. 5. History of bladder spasms. PLAN: He is given refills on his medications. He was given a new prescription for ketoconazole cream, which he will apply twice daily for 2-3 weeks. Will check electrolytes, creatinine, cholesterol fractionation and blood glucose. 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
--- OUTSIDE RECORDS SUMMARY | 2022-02-11 21:07 | XMS_ITS | Encounter Summary ---
:1950 Author Organization [facility] Address [address] [place] [address] Care Team Providers Name Role Phone Pierre Evans MD Primary Care Provider Encounter Details Date Type Department Care Team Description 02/07/2013 Lab Visit Estelita bustamante Unspecified essential hypert ension; [address] bender Screening for lipoid disorde rs; STACE[place] Damico [address] [facility] [phone] Social History Tobacco Use Types Packs/Day Years Used Date Smoking Tobacco: Never Assessed Sex Assigned at Date Recorded Not on file documented as of this encounter Plan of Treatment Not on filedocumented as of this encounter Procedures Procedure Name Priority Date/Time Associated Diagnosis Comme nts GLUCOSE Routine 02/07/2013 11:39 Screening for Results fo r this AM CDT diabetes mellitus procedure are in the results section. LIPID PANEL AND Routine 02/07/2013 11:39 Screening for lipoid Results for this DIRECT LDL(IF AM CDT disorders procedure are in NEEDED) the results section. CREATININE / GFR Routine 02/07/2013 11:39 Unspecified essentia l Results for this AM CDT hypertension (HRC) procedure are in the results section. ELECTROLYTE PANEL Routine 02/07/2013 11:39 Unspecified essenti al Results for this AM CDT hypertension (HRC) procedure are in the results section. documented in this encounter Results GLUCOSE (02/07/2013 11:39 AM CDT) P athologist Signature Lab Glucose 88 60 - 100 HP CONVERSION mg/dL Specimen Anatomical Collection Method Collection Time Receive d Time (Source) Location / / Volume Laterality 02/07/2013 11:39 02/07/2013 3:15 AM CDT PM CDT Pierre Evans MD LAB_1 Performing Organization Address City/[facility]/ZIP Code Phon e Number HP CONVERSION (ABNORMAL) Lipid Panel and Direct LDL(If Needed) (02/07/2013 11:39 AM CDT) Patholo gist Method Time Signature Cholesterol 167 0 - 200 HP CONVERSION mg/dL Triglycerides 66 0 - 149 HP CONVERSION mg/dL HDL Cholesterol 37 (L) >39 mg/dL HP CONVERSION Cholesterol/HDL 4.5 HP CONVERSION Ratio Screen LDL Calculated 117 19 - 130 HP CONVERSION mg/dL Length Of Fast 10 HP CONVERSION Specimen Anatomical Collection Method Collection Time Receive d Time (Source) Location / / Volume Laterality 02/07/2013 11:39 02/07/2013 3:15 AM CDT PM CDT Pierre Evans MD LAB_1 Performing Organization Address [facility] Phon e Number HP CONVERSION Creatinine / GFR (02/07/2013 11:39 AM CDT) P athologist Signature Creatinine 1.1 0.4 - 1.3 HP CONVERSION Serum mg/dL [...] Time (Source) Location / / Volume Laterality 02/07/2013 11:39 02/07/2013 3:15 AM CDT PM CDT Pierre Evans MD LAB_1 Performing Organization Address City/[facility] Code Phon e Number HP CONVERSION Electrolyte Panel (02/07/2013 11:39 AM CDT) P athologist Signature Sodium 142 137 - 147 HP CONVERSION mEq/L Potassium 4.3 3.5 - 5.2 HP CONVERSION mEq/L Chloride 103 98 - 110 HP CONVERSION mEq/L Bicarbonate 33 23 - 33 HP CONVERSION mmol/L Specimen Anatomical Collection Method Collection Time Receive d Time (Source) Location / / Volume Laterality 02/07/2013 11:39 02/07/2013 3:15 AM CDT PM CDT Pierre Evans MD LAB_1 Performing Organization Address City/State/ZIP Code Phon e Number HP CONVERSION documented in this encounter Visit Diagnoses Diagnosis Unspecified essential hypertension (HRC) Unspecified essential hypertension Screening for lipoid disorders Screening for diabetes mellitus documented in this encounter Care Teams Web Merchandiser Relationship Specialty Start Date End Date Pierre Evans MD PCP - General 08/23/10 [address] [facility] [address] [place], [place] [address] documented as of this encounter
--- OUTSIDE RECORDS SUMMARY | 2022-02-11 21:07 | XMS_ITS | Encounter Summary ---
:1950 Author Organization [facility] Address [address] [address] Care Team Providers Name Role Phone Pierre Evans MD Primary Care Provider Encounter Details Date Type Department Care Team Description 04/13/2009 Office Visit Antonina Busch MD [facility] [address] yulia [facility] [place] [address] [place], [place] [address] [phone] Social History Tobacco Use Types Packs/Day Years Used Date Smoking Tobacco: Never Assessed Sex Assigned at Date Recorded Not on file documented as of this encounter Last Filed Vital Signs Vital Sign Reading Time Taken Comments Blood Pressure 130/90 04/13/2009 10:38 AM SEISMOGRAPH COMPUTER Pulse 68 04/13/2009 10:38 AM SEISMOGRAPH COMPUTER Temperature - - Respiratory Rate - - Oxygen Saturation - - Inhaled Oxygen Concentration - - Weight - - Height - - Body Mass Index - - documented in this encounter Progress Notes Pierre Evans MD - 04/13/2009 12:01 AM CST Progress Notes signed by Pierre Evans MD at 04/25/09 1438 Author: Pierre Evans MD Service: (none) Author Type: Physician Filed: 09/10/10 1813 Note Time: 04/13/09 0001 Status: Signed Soap Slabber: Pierre Evans MD (Physician) NAME: COREY FRASER MR#: [id number] ACCT: [id number] VISIT: [id number] DICTATING CLINICIAN: PIERRE EVANS MD CONFIRM #: [id number] LOC: 2702 CLINIC PROGRESS NOTE DATE OF VISIT: 04/13/2009 SUBJECTIVE: Corey is a 59-year-old gentleman who comes in today for followup of esophageal reflux symptoms. He had an endoscopy which showed a small hiatal hernia and very mild gastritis otherwise normal. He has been taking omeprazole 20 mg twice a day. Symptoms really have not gone away completely. He has not been tested for H. pylori. CURRENT MEDICATIONS: Reviewed and updated in the patient health profile in LastWord. ADR/ALLERGIES: NO KNOWN DRUG ALLERGIES. OBJECTIVE: VS: Vital signs in flow sheet. GENERAL: Well-appearing 59-year-old male, no distress. ASSESSMENT: Gastroesophageal reflux, a mild hiatal hernia. PLAN: Will check for H. pylori today. He is told to keep a diary of foods that exacerbated symptoms and to avoid those. He will continue on omeprazole, use Zantac as needed for acute symptoms. Will follow up in our clinic otherwise p.r.n. AJT:[id number] C: 04/14/09 10:42 CONFIRM #: [id number] MOGRAPH COMPUTER documented in this encounter Plan of Treatment Not on filedocumented as of this encounter Visit Diagnoses Not on filedocumented in this encounter Care Teams Quality Control Analyst Relationship Specialty Start Date End Date Pierre Evans MD PCP - General 08/23/10 [address] [facility] [place] [address] documented as of this encounter
--- OUTSIDE RECORDS SUMMARY | 2022-02-11 21:07 | XMS_ITS | Encounter Summary ---
:1950 Author Organization [facility] Address [address] [address] Care Team Providers Name Role Phone Pierre Evans MD Primary Care Provider Encounter Details Date Type Department Care Team Description 04/07/2010 Office Visit Antonina Busch MD [facility] [address] [employer] [address] [facility] [address] [facility] [address] [place], [place] [address] [phone] Social History Tobacco Use Types Packs/Day Years Used Date Smoking Tobacco: Never Assessed Sex Assigned at Date Recorded Not on file documented as of this encounter Last Filed Vital Signs Vital Sign Reading Time Taken Comments Blood Pressure 137/81 04/07/2010 9:37 AM COOK CASHIER FOOD PREP C: Omron Pulse 69 04/07/2010 9:37 AM COOK CASHIER FOOD PREP Temperature - - Respiratory Rate - - Oxygen Saturation - - Inhaled Oxygen Concentration - - Weight 89.4 kg (196 lb 15.7 oz) 04/07/2010 9:37 AM COOK CASHIER FOOD PREP C: 89.4kg Height - - Body Mass Index - - documented in this encounter Progress Notes Pierre Evans MD - 04/07/2010 12:01 AM CST NAME: COREY FRASER MR#: [id number] ACCT: [id number] VISIT: [id number] DICTATING CLINICIAN: Pierre Evans MD CONFIRM #: [id number] LOC: 2702 CLINIC PROGRESS NOTE DATE OF VISIT: 04/07/2010 : 1950 Corey is a 60-year-old gentleman who comes in today for a med check. He has been on Sanctura and doxazosin for overactive bladder and also to control his blood pressure. His blood pressure has been generally well controlled with his medications. He tried going off his Sanctura but his bladder issues became intolerable. He has no other concerns or complaints today. CURRENT MEDICATIONS: Reviewed and updated in the patient health profile in LastWord. ALLERGIES: NO KNOWN DRUG ALLERGIES. PHYSICAL EXAM: VITAL SIGNS: On flow sheet in LastWord. Blood pressure is 137/81. ASSESSMENT: 1. Overactive bladder. 2. Hypertension. PLAN: He is given refills on his medications. He is also given a refill on Cialis, which he uses for erectile dysfunction. Will follow up in our clinic in 2 months for a complete well exam. AJT:MEDQ C: CONFIRM #: [id number] CASHIER FOOD PREP documented in this encounter Plan of Treatment Not on filedocumented as of this encounter Visit Diagnoses Not on filedocumented in this encounter Care Teams Popcorn Machine Operator Relationship Specialty Start Date End Date Pierre Evans MD PCP - General 08/23/10 [address] [facility] [place] [address] documented as of this encounter
--- OUTSIDE RECORDS SUMMARY | 2022-02-11 21:07 | XMS_ITS | Encounter Summary ---
:1950 Author Organization [facility] Address [address] [address] Care Team Providers Name Role Phone Pierre Evans MD Primary Care Provider Reason for Visit Reason Comments Refill Encounter Details Date Type Department Care Team Description 01/14/2012 Refill [facility] Pierre Evans MD Refill [address] bender [address] [place] [address] [place] [address] [phone] (Wo rk) Social History Tobacco Use Types Packs/Day Years Used Date Smoking Tobacco: Never Assessed Sex Assigned at Date Recorded Not on file documented as of this encounter Nursing Notes Pierre Evans MD - 01/16/2012 3:38 PM CDT Done. Aida Yancey RN - 01/16/2012 10:12 AM CDT DOES NOT MEET REQUIREMENTS FOR REFILL Patient last seen: 04/19/11 Reason: requested medication not on refill protocol list. Prescription Refills Pending Prescriptions Disp Refills ??? trospium (SANCTURA) 20 mg tablet [Pharmacy Med Name: TROSPIUM CL 20MG TABLETS] 180 tablet 0 Sig: Take 1 tablet by mouth 2 times daily. documented in this encounter Plan of Treatment Not on filedocumented as of this encounter Visit Diagnoses Not on filedocumented in this encounter Care Teams Lug Breaker And Wire Puller Relationship Specialty Start Date End Date Pierre Evans MD PCP - General 08/23/10 [address] [facility] [place] [address] documented as of this encounter
--- OUTSIDE RECORDS SUMMARY | 2022-02-11 21:07 | XMS_ITS | Encounter Summary ---
:1950 Author Organization [facility] Address [address] [address] Care Team Providers Name Role Phone Pierre Evans MD Primary Care Provider Reason for Visit Reason Comments Pharmacy Encounter Details Date Type Department Care Team Description 02/09/2012 Telephone [facility] Pierre Evans MD Pharmacy [address] bender [address] [place] [address] [place] [phone] (Wo rk) Social History Tobacco Use Types Packs/Day Years Used Date Smoking Tobacco: Never Assessed Sex Assigned at Date Recorded Not on file documented as of this encounter Nursing Notes Stephanie Naik RN - 02/09/2012 3:48 PM CDT clarified Lisinopril dosing for pharmacy. Pt takes one per day. Kyra Taylor - 02/09/2012 3:46 PM CDT Pharmacy is calling with question regarding rx. Transferred to triage nurse. documented in this encounter Plan of Treatment Not on filedocumented as of this encounter Visit Diagnoses Not on filedocumented in this encounter Care Teams Police Liaison Relationship Specialty Start Date End Date Pierre Evans MD PCP - General 08/23/[address] [place], [place] [address] documented as of this encounter
--- OUTSIDE RECORDS SUMMARY | 2022-02-11 21:07 | XMS_ITS | Encounter Summary ---
:1950 Author Organization [facility] Address [address] [address] Care Team Providers Name Role Phone Pierre Evans MD Primary Care Provider Encounter Details Date Type Department Care Team Description 01/27/2011 Notes/[facility] [address] [facility] [address] [facility] [address] [place], [place] [id number] Social History Tobacco Use Types Packs/Day Years Used Date Smoking Tobacco: Never Assessed Sex Assigned at Date Recorded Not on file documented as of this encounter Plan of Treatment Not on filedocumented as of this encounter Visit Diagnoses Not on filedocumented in this encounter Care Teams Warp Tension Tester Relationship Specialty Start Date End Date Pierre Evans MD PCP - General 08/23/10 [address] [facility] [place] [address] documented as of this encounter
--- OUTSIDE RECORDS SUMMARY | 2022-02-11 21:07 | XMS_ITS | Encounter Summary ---
:1950 Author Organization [facility] Address [address] [address] Care Team Providers Name Role Phone Pierre Evans MD Primary Care Provider Encounter Details Date Type Department Care Team Description 09/22/2010 PN Conversion Only [facility] Evans, Medicine [address] [place] [address] [place] [address] (Wo rk) Social History Tobacco Use Types Packs/Day Years Used Date Smoking Tobacco: Never Assessed Sex Assigned at Date Recorded Not on file documented as of this encounter Plan of Treatment Not on filedocumented as of this encounter Visit Diagnoses Not on filedocumented in this encounter Care Teams Rolling Machine Operator Relationship Specialty Start Date End Date Pierre Evans MD PCP - General 08/23/[address] [place] [address] documented as of this encounter
--- OUTSIDE RECORDS SUMMARY | 2022-02-11 21:07 | XMS_ITS | Encounter Summary ---
:1950 Author Organization [facility] Address [address], [place] [address] Care Team Providers Name Role Phone Pierre Evans MD Primary Care Provider Reason for Visit Reason Comments Refill Encounter Details Date Type Department Care Team Description 01/05/2014 Refill [facility] Pierre Evans MD Refill [address] bender [address] [place] [address] [place] [phone] (Wo rk) Social History Tobacco Use Types Packs/Day Years Used Date Smoking Tobacco: Never Assessed Sex Assigned at Date Recorded Not on file documented as of this encounter Nursing Notes Corey Frederick, SONNY - 01/08/2014 8:19 AM CDT Rx mailed to Pt. Pierre Evans MD - 01/08/2014 8:03 AM CDT Printed. Please mail to pt. Thank you. Toshia Miller RN - 01/07/2014 11:50 AM CDT DOES NOT MEET REQUIREMENTS FOR REFILL Reason: Patient requesting script be mailed to his home. Central RN refill unable to print and mail scripts. Last script was written by PCP on 02/07/13 for #90 and PRN refills. Patient has appt with PCP on 02/10/14. Please advise if appropriate. Last visit with PCP: 02/07/13 Patient has appt with PCP on 02/10/14. Requested Prescriptions Pending Prescriptions Disp Refills ??? tadalafil (CIALIS) 5 mg tablet 90 tablet 0 Sig: Take 1 tablet by mouth daily (every 24 hours). Suzette Mccarthy - 01/05/2014 3:52 PM CDT Please mail paper rx to his home address: [address] [place] [phone]. 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
--- OUTSIDE RECORDS SUMMARY | 2022-02-11 21:07 | XMS_ITS | Encounter Summary ---
:1950 Author Organization [facility] Address [address], [place] [address] Care Team Providers Name Role Phone Pierre Evans MD Primary Care Provider Reason for Visit Reason Comments Annual Exam Encounter Details Date Type Department Care Team Description 02/06/2012 Office Visit [facility] Pierre Evans Well adult exam (Primary Dx); Elvis Barnett MD Unspecified essential hypertension; [address]; Drive Dr Screening for lipoid disorders; STACEY Damico [address] ST[place] Screening for diabetes melli tus; [phone] Need vaccination-viral disease Social History Tobacco Use Types Packs/Day Years Used Date Smoking Tobacco: Never Assessed Sex Assigned at Date Recorded Not on file documented as of this encounter Last Filed Vital Signs Vital Sign Reading Time Taken Comments Blood Pressure 126/78 02/06/2012 2:07 PM CDT Pulse 87 02/06/2012 2:07 PM CDT Temperature - - Respiratory Rate - - Oxygen Saturation - - Inhaled Oxygen Concentration - - Weight 90.7 kg (200 lb) 02/06/2012 2:07 PM CDT Height 177.8 cm (5' 10) 02/06/2012 2:07 PM CDT Body Mass Index 28.7 02/06/2012 2:07 PM CDT documented in this encounter Progress Notes Pierre Evans MD - 02/07/2012 10:28 AM CDT H&P signed by Pierre Evans MD at 02/07/121736 Author: Pierre Evans MD Service: (none) Author Type: Physician Filed: 02/07/121736 Note Time: 02/07/12 1028 Status: Signed Crib Tender: Pierre Evans MD (Physician) NAME: COREY FRASER MR#: [id number] CSN: [id number] AUTHENTICATING CLINICIAN: Pierre Evans MD CONFIRM #: [id number] LOC: 2702 CLINIC PHYSICAL DATE OF VISIT: 02/06/2012 : 1950 Corey is a 62-year-old gentleman who comes in today for a well exam. A few concerns were addressed today. He has had fatigue, but due to the fact he has been working extremely hard for the last 6 months or so. 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 He has had a cough related togastroesophageal reflux as well. He has had some issues with his bladder, but is doing better on medications. The remainder of a complete review of systems is negative. 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 Exercises by biking and walking. Has not been getting much exercise recently, however. He rarely uses tobacco, drinks approximately 6 alcoholic beverages per week. Feels like his diet has been okay. Weight has remained stable. FAMILY HISTORY: Parents both . Mother at age 77 of colon cancer. Father at age 87. He has 3 sisters and 1 brother who are all healthy. PAST MEDICAL HISTORY: Significant for history of colon polyps. 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 He had a colonoscopy done last year. CURRENT MEDICATIONS: Reviewed and updated in [facility]. ALLERGIES: No known drug allergies. PHYSICAL EXAM: VITAL SIGNS: In [facility]. GENERAL: Well-appearing, 62-year-old male in no distress. Head eyes ears, nose, and throat within normal limits. Respiratory effort normal. LUNGS: CTA bilaterally. HEART: RRR, no MGR. ABDOMEN: Soft, NT, ND, no masses. GENITOURINARY EXAM: Normal male genitalia. No testicular masses or hernias. Prostate normal. ASSESSMENT: 1. Well exam. 2. Hypertension. 3. History of bladder spasm. PLAN: Will check a cholesterol fractionation, blood glucose, electrolytes and creatinine. He is given a shingles vaccine, was given refills on his medications. Encouraged to get more regular exercise, eat a healthy diet. Followup in our clinic pmila DEVIT:KASHIF C: CONFIRM #: [id number] documented in this encounter Plan of Treatment Not on filedocumented as of this encounter Visit Diagnoses Diagnosis Well adult exam - Primary Routine general medical examination at a health care facility Unspecified essential hypertension (HRC) Unspecified essential hypertension Bladder spasm Other specified disorders of bladder Screening for lipoid disorders Screening for diabetes mellitus Need for prophylactic vaccination and in oculation against other viral diseases(V04.89) Need for prophylactic vaccination and in oculation against other viral diseases documented in this encounter Care Teams Waistline Joiner Lockstitch Relationship Specialty Start Date End Date Pierre Evans MD PCP - General 08/23/10 [address] [facility] [place] [address] documented as of this encounter
--- OUTSIDE RECORDS SUMMARY | 2022-02-11 21:07 | XMS_ITS | Encounter Summary ---
:1950 Author Organization [facility] Address [address] [facility] [place] [address] Care Team Providers Name Role Phone Pierre Evans MD Primary Care Provider Encounter Details Date Type Department Care Team Description 11/18/2010 Office Visit Antonina Busch MD Medicine [address] [place] [address] [place] [address] [phone] Social History Tobacco Use Types Packs/Day Years Used Date Smoking Tobacco: Never Assessed Sex Assigned at Date Recorded Not on file documented as of this encounter Progress Notes Pierre Evans MD - 11/18/2010 12:01 AM CDT H&P signed by Pierre Evans MD at 11/18/10 1533 Author: Pierre Evans MD Service: (none) Author Type: Physician Filed: 11/18/10 1537 Note Time: 11/18/10 0001 Status: Signed Log Truck Driver: Pierre Evans MD (Physician) NAME: COREY FRASER MR#: [id number] ACCT: [id number] VISIT: [id number] DICTATING CLINICIAN: Pierre Evans MD CONFIRM #: [id number] LOC: 2702 CLINIC PHYSICAL DATE OF VISIT: 11/18/2010 : 1950 Corey is a 60-year-old gentleman who comes in today for a well exam. He has a few concerns, which were addressed today. He has had a skin lesion on his forehead that he describes as a chronic sore which really does not ever fully heal. It has been flaky at times. He has a second concern of overactive bladder, has been on Sanctura and doxazosin with good results, but he has also had issues with erectile dysfunction, and when he takes the erectile dysfunction medicine while he is on doxazosin, he has a lot of side effects. He has gone off his doxazosin but has noticed that his blood pressure has increased and his overactive bladder symptoms worsen when he stops the medication. He is in a long-distance relationship with his significant other and says that he only takes the erectile dysfunction medicine infrequently. The remainder of a complete review of systems was updated in the patient health profile. 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 He is in a committed relationship. He does not get a lot of regular exercise. Does not use tobacco. Rarely drinks alcohol. Feels like his diet has been okay. FAMILY HISTORY: Mother of colon cancer in her 70s. Father at age 86 of COPD. He has had 2 knee surgeries. Has a history of a colon polyp and needs a repeat colonoscopy this year. CURRENT MEDICATIONS: Reviewed and updated in the patient health profile in [facility]. ALLERGIES: Reviewed and updated in the patient health profile in [facility]. PHYSICAL EXAM: VITAL SIGNS: On flowsheet in Last[facility]. GENERAL: Well-appearing 60-year-old male in no distress. Head, eyes, ears, nose and throat: Within normal limits. RESPIRATORY: Effort normal. Lungs CTA bilaterally. HEART: RRR. No MGR. ABDOMEN: Soft, NT/ND, no masses. GENITOURINARY EXAM: Normal male genitalia. No testicular masses or hernias. RECTAL EXAMINATION: Normal prostate. SKIN: Revealed an actinic keratosis on his forehead. Today in clinic, this was treated with liquid nitrogen in a freeze-thaw cycle x3. ASSESSMENT: 1. Well exam. 2. Hypertension. 3. Actinic keratosis. 4. Overactive bladder. PLAN: Cholesterol fractionation, blood glucose, electrolytes, creatinine and PSA were drawn today. For his blood pressure, he will be started on lisinopril 2.5 mg daily. He said he will stop the doxazosin when he intends on using Cialis. He was given refills on Cialis. He was given a tetanus shot today. Will follow up in our clinic pmila GREGORY:KASHIF C: CONFIRM #: [id number] documented in this encounter Plan of Treatment Not on filedocumented as of this encounter Visit Diagnoses Not on filedocumented in this encounter Care Teams Vibrator Operator Relationship Specialty Start Date End Date Pierre Evans MD PCP - General 08/23/10 [address] [facility] [place] [address] documented as of this encounter
--- OUTSIDE RECORDS SUMMARY | 2022-02-11 21:07 | XMS_ITS | Encounter Summary ---
:1950 Author Organization [facility] Address [address] [address] Care Team Providers Name Role Phone Pierre Evans MD Primary Care Provider Reason for Visit Reason Comments Refill Encounter Details Date Type Department Care Team Description 04/19/2011 Office Visit Pierre Busch specified disorder of bladder; Elvis Barnett MD Unspecified essential hypertension; [address] [facility] [address] [facility] GERD (gastroesophageal reflux disease) Drive Dr [place] [address] [place] [phone] Social History Tobacco Use Types Packs/Day Years Used Date Smoking Tobacco: Never Assessed Sex Assigned at Date Recorded Not on file documented as of this encounter Last Filed Vital Signs Vital Sign Reading Time Taken Comments Blood Pressure 131/83 04/19/2011 2:51 PM MAGNETIC RESONANCE TECHNOLOGIST Pulse - - Temperature - - Respiratory Rate - - Oxygen Saturation - - Inhaled Oxygen Concentration - - Weight 90.3 kg (199 lb) 04/19/2011 2:51 PM MAGNETIC RESONANCE TECHNOLOGIST Height - - Body Mass Index 28.55 02/03/2011 10:49 AM CDT documented in this encounter Progress Notes Pierre Evans MD - 04/20/2011 3:12 PM CST Progress Notes signed by Pierre Evans MD at 04/27/111911 Author: Pierre Evans MD Service: (none) Author Type: Physician Filed: 04/27/111911 Note Time: 04/20/11 1512 Status: Signed Heel Washer Stringing Machine Operator: Pierre Evans MD (Physician) NAME: COREY FRASER MR#: [id number] CSN: [id number] AUTHENTICATING CLINICIAN: Pierre Evans MD CONFIRM #: [id number] LOC: 2702 CLINIC PROGRESS NOTE DATE OF VISIT: 04/19/2011 : 1950 SUBJECTIVE: Corey is a 61-year-old gentleman who comes in today for followup of several medical issues. He has a history of gastroesophageal reflux, has been on omeprazole once daily but does not feel like it is very effective. He had an endoscopy done two years ago which showed a hiatal hernia and likely gastroesophageal reflux. He was told to control his symptoms with omeprazole, but he is not getting great improvement. He also has a history of bladder spasm and has been on Sanctura in the past. He is not sure that it is working as well as he would like. He also has a history of hypertension and is on lisinopril and Cardura. He is in need of refills today. CURRENT MEDICATIONS AND ALLERGIES: Reviewed and updated in [facility]. PHYSICAL EXAMINATION: VITAL SIGNS: In [facility]. Blood pressure is 131/83. HEART: Regular rate and rhythm without murmurs. LUNGS: CTA bilaterally. ASSESSMENT: 1. Hypertension. 2. Bladder spasms. 3. Gastroesophageal reflux. PLAN: He is given refills on his medications. He is given a referral to Urology to discuss his bladder symptoms. Will try taking Prilosec 20 mg twice a day. Notify me in two weeks if he is not seeing improvement. Follow up in our clinic otherwise p.r.n. MARITOT:KASHIF C: CONFIRM #: [id number] ETIC RESONANCE TECHNOLOGIST documented in this encounter Plan of Treatment Not on filedocumented as of this encounter Visit Diagnoses Diagnosis Other specified disorder of bladder Unspecified essential hypertension (HRC) Unspecified essential hypertension GERD (gastroesophageal reflux disease) Esophageal reflux documented in this encounter Care Teams Medical Assistant Relationship Specialty Start Date End Date Pierre Evans MD PCP - General 08/23/10 [address] [facility] [place] [address] documented as of this encounter
--- OUTSIDE RECORDS SUMMARY | 2022-02-11 21:07 | XMS_ITS | Encounter Summary ---
:1950 Author Organization [facility] Address [address] [address] Care Team Providers Name Role Phone Pierre Evans MD Primary Care Provider Encounter Details Date Type Department Care Team Description 04/02/2009 Office Visit Antonina Busch MD [facility] [address] [facility] [address] [place], [place] [address] [phone] Social History Tobacco Use Types Packs/Day Years Used Date Smoking Tobacco: Never Assessed Sex Assigned at Date Recorded Not on file documented as of this encounter Last Filed Vital Signs Vital Sign Reading Time Taken Comments Blood Pressure 140/90 04/02/2009 11:06 AM MOVIE THEATER USHER Pulse 60 04/02/2009 11:06 AM MOVIE THEATER USHER Temperature - - Respiratory Rate - - Oxygen Saturation - - Inhaled Oxygen Concentration - - Weight 88.5 kg (195 lb) 04/02/2009 11:06 AM MOVIE THEATER USHER C: 88.5 kg Height - - Body Mass Index - - documented in this encounter Progress Notes Pierre Evans MD - 04/02/2009 12:01 AM CST Progress Notes signed by Pierre Evans MD at 04/08/09 1625 Author: Pierre Evans MD Service: (none) Author Type: Physician Filed: 09/10/10 1751 Note Time: 04/02/09 0001 Status: Signed Senior Project Coordinator: Pierre Evans MD (Physician) NAME: COREY FRASER MR#: [id number] ACCT: [id number] VISIT: [id number] DICTATING CLINICIAN: PIERRE EVANS MD CONFIRM #: [id number] LOC: 2702 CLINIC PROGRESS NOTE DATE OF VISIT: 04/02/2009 SUBJECTIVE: Corey is 59-year-old gentleman who comes in today with chief complaint of continued sinus congestion and drainage. He was diagnosed with a sinus infection in 09/2008 and was given 2 rounds of antibiotics, but his symptoms never really have gone away. He feels congested in his nose and he has been having some bloody mucus lately. Yesterday morning he coughed up some blood. He is not sure where it originated from. He also has a long history of some heartburn type symptoms. He has been taking omeprazole, but it does not seem to be helping at all. He has never had endoscopy. He is also in need of refills on doxazosin, which he has been taking for urinary symptoms and it also has been controlling his blood pressure. He has not had any fevers, chills, nausea or vomiting. Eating and drinking okay. No weight loss. No night sweats. CURRENT MEDICATIONS: Reviewed and updated in the patient health profile in LastWord. ADR/ALLERGIES: NO KNOWN DRUG ALLERGIES. OBJECTIVE: VS: On flow sheet in LastWord. GENERAL: A 59-year-old male in no distress. Ears: Normal TMs bilaterally. Nasal mucosa was congested. No evidence of recent bleeding. Oropharynx clear with no erythema or exudate. Respiratory effort normal. LUNGS: CTA bilaterally. Chest x-ray today reviewed by me was normal. ASSESSMENT: 1. Chronic rhinitis. 2. Gastroesophageal reflux, which is not better with omeprazole. PLAN: He is given a prescription for Flonase nasal spray. He will also be set up for an endoscopy to evaluate his continued reflux symptoms. Will follow up in our clinic pmila DEIVT:[id number] C: 04/03/09 08:13 CONFIRM #: [id number] E THEATER USHER documented in this encounter Plan of Treatment Not on filedocumented as of this encounter Procedures Procedure Name Priority Date/Time Associated Diagnosis Comme nts XR CHEST 1 VIEW Routine 04/02/2009 11:45 AM Resul ts for this MOVIE THEATER USHER procedure are i n the results section. documented in this encounter Results XR Chest 1 View (04/02/2009 11:45 AM MOVIE THEATER USHER) Anatomical Region Laterality Modality Chest, Lung Other Specimen (Source) Anatomical Location Collection Method / Collectio n Time Received Time / Laterality Volume Narrative 04/02/2009 11:45 AM MOVIE THEATER USHER There are no previous films. ??Some linear appearing density in the left lateral costophrenic angle region i s most likely atelectasis. There is no other evidence for acute or active disease within the lungs and the lateral costophrenic angle s are clear. ??The heart is within normal limits in size. ??No other abnormality is seen. CONCLUSION: No evidence for acute diseas e. Dictating GUS RODRÍGUEZ RADIOLOGIST Procedure Note Antonina Hamilton - 11/04/2015 There are no previous films. Some linear appearing density in the left lateral costophrenic angle region i s most likely atelectasis. There is no other evidence for acute or active disease within the lungs and the lateral costophrenic angle s are clear. The heart is within normal limits in size. No other a bnormality is seen. CONCLUSION: No evidence for acute diseas e. Dictating GUS RODRÍGUEZ RADIOLOGIST Pierre Evans MD RAD GD documented in this encounter Visit Diagnoses Not on filedocumented in this encounter Care Teams Fruit Or Nut Farmworker Relationship Specialty Start Date End Date Pierre Evans MD PCP - General 08/23/10 [address] [place] [address] documented as of this encounter
--- OUTSIDE RECORDS SUMMARY | 2022-02-11 21:07 | XMS_ITS | Encounter Summary ---
:1950 Author Organization [facility] Address [address] [address] Care Team Providers Name Role Phone Pierre Evans MD Primary Care Provider Encounter Details Date Type Department Care Team Description 04/02/2009 PN Conversion Only [facility] CONV [address] [facility] [place] [address] Social History Tobacco Use Types Packs/Day Years Used Date Smoking Tobacco: Never Assessed Sex Assigned at Date Recorded Not on file documented as of this encounter Plan of Treatment Not on filedocumented as of this encounter Visit Diagnoses Not on filedocumented in this encounter Care Teams Student Career Development Specialist Relationship Specialty Start Date End Date Pierre Evans MD PCP - General 08/23/[address] [place] [address] documented as of this encounter
--- OUTSIDE RECORDS SUMMARY | 2022-02-11 21:07 | XMS_ITS | Encounter Summary ---
:1950 Author Organization [facility] Address [address] [address] Care Team Providers Name Role Phone Pierre Evans MD Primary Care Provider Encounter Details Date Type Department Care Team Description 07/01/2009 Office Visit Antonina Busch MD [facility] [address] [employer] [facility] [place] [address] [place], [place] [address] [phone] Social History Tobacco Use Types Packs/Day Years Used Date Smoking Tobacco: Never Assessed Sex Assigned at Date Recorded Not on file documented as of this encounter Last Filed Vital Signs Vital Sign Reading Time Taken Comments Blood Pressure 126/86 07/01/2009 10:02 AM GENERAL SERVICE TECHNICIAN Pulse 72 07/01/2009 10:02 AM GENERAL SERVICE TECHNICIAN Temperature 36.2 ??C (97.2 ??F) 07/01/2009 10:02 AM GENERAL SERVICE TECHNICIAN C: 3 6.2 C Respiratory Rate - - Oxygen Saturation - - Inhaled Oxygen Concentration - - Weight - - Height - - Body Mass Index - - documented in this encounter Progress Notes Pierre Evans MD - 07/01/2009 12:01 AM CST Progress Notes signed by Pierre Evans MD at 07/08/09 1313 Author: Pierre Evans MD Service: (none) Author Type: Physician Filed: 09/10/102000 Note Time: 07/01/09 0001 Status: Signed Public Relations Manager: Pierre Evans MD (Physician) NAME: COREY FRASER MR#: [id number] ACCT: [id number] VISIT: [id number] DICTATING CLINICIAN: PIERRE EVANS MD CONFIRM #: [id number] LOC: 2702 CLINIC PROGRESS NOTE DATE OF VISIT: 07/01/2009 SUBJECTIVE: Corey is a 59-year-old gentleman who comes in today with a chief complaint of bloody nasal drainage, which he has been getting basically every day. Says he always feels congested in the mornings. Does have a prescription for Flonase. Has been using that intermittently. He also bought a humidifier just 2 days ago and has not really seen any improvement yet. CURRENT MEDICATIONS: Reviewed and updated in the patient health profile in LastWord. ADR/ALLERGIES: REVIEWED AND UPDATED IN THE PATIENT HEALTH PROFILE IN [facility]ST[employer]. OBJECTIVE: VS: In flow sheet in LastWord. Generally, well-appearing, 59-year-old male, no distress. Ears: Normal TMs bilaterally. Nasal mucosa revealed some evidence of recent nosebleed, particularly on the nasal septum bilaterally. He has very dry, cracked skin on his nasal septum. Oropharynx clear. No erythema or exudate. ASSESSMENT: Epistaxis secondary to dry nasal mucosa. PLAN: He was told to use nasal saline irrigation and use Vaseline inside of his nose frequently to keep it moist, and humidifier in his room may help, as well. He will follow up if he is not seeing improvement. AJT:[id number] C: 07/01/09 12:15 CONFIRM #: [id number] RAL SERVICE TECHNICIAN documented in this encounter Plan of Treatment Not on filedocumented as of this encounter Visit Diagnoses Not on filedocumented in this encounter Care Teams Rehab Liaison Relationship Specialty Start Date End Date Pierre Evans MD PCP - General 08/23/10 [address] [place] [address] documented as of this encounter
--- OUTSIDE RECORDS SUMMARY | 2022-02-11 21:07 | XMS_ITS | Encounter Summary ---
:1950 [facility] Address [address] [address] Care Team Providers Name Role Phone Pierre Evans MD Primary Care Provider Encounter Details Date Type Department Care Team Description 04/01/2012 Hospital Encounter [facility] 6500 Esophageal reflux; Endoscopy Hiatal hernia [address] [facility]. [place], [place] [id number] Social History Tobacco Use Types Packs/Day Years Used Date Smoking Tobacco: Never Assessed Sex Assigned at Date Recorded Not on file documented as of this encounter Last Filed Vital Signs Vital Sign Reading Time Taken Comments Blood Pressure 131/88 04/01/2012 4:45 PM CUSTOMER SUCCESS INTERN Pulse 79 04/01/2012 4:45 PM CUSTOMER SUCCESS INTERN Temperature - - Respiratory Rate 16 04/01/2012 4:45 PM CUSTOMER SUCCESS INTERN Oxygen Saturation 95% 04/01/2012 4:45 PM CUSTOMER SUCCESS INTERN Inhaled Oxygen Concentration - - Weight 86.2 kg (190 lb) 04/01/2012 3:49 PM CUSTOMER SUCCESS INTERN Height 177.8 cm (5' 10) 04/01/2012 3:49 PM CUSTOMER SUCCESS INTERN Body Mass Index 27.26 04/01/2012 3:49 PM CUSTOMER SUCCESS INTERN documented in this encounter Medications at Time of Discharge Medication Sig Dispensed Refills Start Date End Date lisinopril (AKA ZESTRIL) Take 1 tablet by 90 tablet 0 02/0502/07/2013 2.5 MG tabletIndications: mouth daily (every Unspecified essential 24 hours). hypertension (HRC) omeprazole ([facility] Take 1 tablet by 90 3 04/07/2010 OMEPRAZOLE) 20 MG enteric mouth daily (every coated tablet 24 hours). LW Addl Instr:Indicated for: Acid Reflux Tadalafil (AKA CIALIS) 5 Take 1 tablet by 90 tablet 0 02/0502/07/2013 MG tablet mouth daily (every 24 hours). Take 30 minutes prior to sexual activity. trospium (SANCTURA) 20 MG Take 1 tablet by 180 tablet 0 01/1902/07/2013 tabletIndications: mouth 2 times Bladder spasm daily. B Complex Vitamins Take 1 tablet by 0 11/18/2010 02/25/2020 (VITAMIN B COMPLEX OR) mouth daily (every 24 hours). LW Comment:with biotin documented as of this encounter Progress Notes Shyla Brito RN - 04/01/2012 4:37 PM CST enc. to deep breath to maintain sats >90%, needed some oral suctioning during procedure to clear saliva. documented in this encounter Procedure Notes Tanner Allen MD - 04/01/2012 3:40 PM CST Procedures signed by Tanner Allen MD at 04/01/12 1540 Author: Tanner Allen MD Service: (none) Author Type: Physician Filed: 04/01/12 1201 Note Time: 04/01/12 154 Status: Signed E Commerce Strategist: Tanner Allen MD (Physician) Patient Name: Corey Patterson Gender: Frank Procedure Date: 04/01/2012 03:40:00 PM Date of : 1950 Age: 62 Admit Type: Outpatient Note Status: Finalized Attending MD: Tanner Allen MD Procedure: Upper GI endoscopy Indications: Heartburn, Failure to respond to medical treatment Providers: Tanner Allen MD, Shyla Brito RN Referring MD: Pierre Evans MD Medicines: Fentanyl 100 micrograms IV, Midazolam 3 mg IV, Benzocaine spray Complications: No immediate complications. Procedure: - Prior to the procedure, a [...] the physician in the procedure room at 16:03 PM. Mental Status Examination: normal. Respiratory Examination: clear to auscultation. CV Examination: normal. After reviewing the risks and benefits, the [...] patient was re-assessed after the procedure. After obtaining informed consent, the endoscope was passed under direct vision. Throughout the procedure, the patient's blood pressure, pulse, and oxygen saturations were monitored continuously. The GIF-H180-10 gastroscope was introduced through the mouth, and advanced to the second part of duodenum. The upper GI endoscopy was accomplished without difficulty. The patient tolerated the procedure well. Findings: LA Grade B (one or more mucosal breaks greater than 5 mm, not extending between the tops of two mucosal folds) esophagitis with no bleeding was found in the lower third of the esophagus. Biopsies were taken with a cold forceps for histology. A small hiatus hernia was present. Multiple medium pedunculated and sessile polyps with no bleeding and no stigmata of recent bleeding were found in the gastric fundus and in the gastric body. The exam of the stomach was otherwise normal. The examined duodenum was normal. Impression: - LA Grade B reflux esophagitis. Rule out Mims's esophagus. This was biopsied. - Omeprazole recently increased to bid dosing. - Patient describes significant reflux / regurgitation without heartburn. Suggests he may have an incompetent sphincter and PPi may not help significantly. If he continues to have significant reflux, regurgitation despite lifestyle modification and double dose PPI, he may be a candidate for surgical anti-reflux procedure. - Hiatus hernia. - Multiple gastric polyps. These look like insignificant fundic gland polyps. These were not biopsied. - Normal examined duodenum. Recommendation: - Use Prilosec (omeprazole) at 20 mg by mouth twice a day indefinitely. - Follow an antireflux regimen indefinitely. CPT4 Code(s): 51625, Upper gastrointestinal endoscopy including esophagus, stomach, and either the duodenum and/or jejunum as appropriate; with biopsy, single or multiple ICD9 Code(s): 530.11, Reflux esophagitis 211.1, Benign neoplasm of stomach 787.1, Heartburn 553.3, Diaphragmatic hernia without mention of obstruction or gangrene CPT Copyright 2011 [employer]. All Rights Reserved. The codes documented in this report are preliminary and upon staff development manager review may be revised to meet current compliance requirements. Tanner Allen MD Signed Date: 04/01/2012 04:35:02 PM Number of Addenda: 0 This document has been electronically signed. Note initiated on 04/01/2012 03:38:02 PM OMER SUCCESS INTERN documented in this encounter Miscellaneous Notes Medication History - Alejandro, MD William - 04/01/2012 11:59 PM CST INPATIENT MEDS Encounter Date: 04/01/12 0.9% sodium chloride latex free syringe 10 mL Start Date:04/01/12, End Date:04/02/12, Frequency:PRN Taken Dose Action User Route Site Recorded Comment Reason 04/01/12 1635 10 mL Given Shyla Brito RN Intravenous - 04/01/12 1635 - - Fentanyl Citrate (PF) (SUBLIMAZE) injection 25-100 mcg Start Date:04/01/12, End Date:04/02/12, Frequency:PRN Taken Dose Action User Route Site Recorded Comment Reason 04/01/12 1635 100 mcg Given Shyla Brito RN Intravenous - 04/01/12 1635 - - midazolam (VERSED) injection 0.5-2 mg Start Date:04/01/12, End Date:04/02/12, Frequency:PRN Taken Dose Action User Route Site Recorded Comment Reason 04/01/12 1635 3 mg Given Shyla Brito RN Intravenous - 04/01/12 1636 - - ondansetron (ZOFRAN) injection 4 mg Start Date:04/01/12, End Date:04/02/12, Frequency:PRN *No Administrations Recorded benzocaine (HURRICAINE) 20 % spray Start Date:04/01/12, End Date:04/02/12, Frequency:PRN Taken Dose Action User Route Site Recorded Comment Reason 04/01/12 1635 - Given Shyla Brito RN Mouth/Throat - 04/01/12 1635 - - midazolam (VERSED) 1 mg/mL injection Start Date:04/01/12, End Date:-, Frequency:- *No Administrations Recorded Fentanyl Citrate (PF) (SUBLIMAZE) 100 mcg/2 mL (50 mcg/mL) injection Start Date:04/01/12, End Date:-, Frequency:- *No Administrations Recorded 0.9% sodium chloride latex free syringe Start Date:04/01/12, End Date:-, Frequency:- *No Administrations Recorded OMER SUCCESS INTERN documented in this encounter Plan of Treatment Not on filedocumented as of this encounter Procedures Procedure Name Priority Date/Time Associated Comments Diagnosis ENDOSCOPY OBTAINED Routine 04/01/2012 4:38 PM Res ults for this ANATOMICAL PATH CUSTOMER SUCCESS INTERN procedure ar e in the results section. SURGICAL PATHCHIP Routine 04/01/2012 4:38 PM Re sults for this NICOLLET CUSTOMER SUCCESS INTERN procedure are i n the results section. documented in this encounter Results Pathology Report (04/01/2012 4:38 PM CUSTOMER SUCCESS INTERN) Specimen (Source) Anatomical Collection Method Collection Time Re ceived Time Location / / Volume Laterality 04/01/2012 4:38 PM CUSTOMER SUCCESS INTERN Narrative HP CONVERSION - 04/03/2012 8:45 AM CUSTOMER SUCCESS INTERN ?Final SURGICAL PATHOLOGY REPORT Pathology #: [id number] ? Date Obtained: 04/01/2012 ?Date Received: 04/01/2012 DIAGNOSIS: Esophagus at 39 cm, biopsies: ??1. 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 ??2. Negative for dysplasia. ? ROMAN CONTRERAS MD ? (electronic signature) ? 04/03/2012 ??08:45 CLINICAL NOTES: Reflux, R/O Mims's ORGAN/TISSUE SITE: Esophagus at 39cm GROSS DESCRIPTION: The specimen is labeled esophagus and c onsists of 4 doss mucosal tissue fragments averaging 0.2 cm in greatest dimension. ??Entirely submitted in cassette [id number]. ?WEYAL MICROSCOPIC DESCRIPTION: Microscopic evaluation performed. CPT Codes: ?35684 x 1 ? End of Report Tanner Allen MD LAB_1 Performing Organization Address City/State/ZIP Code Phon e Number HP CONVERSION ENDOSCOPY OBTAINED ANATOMICAL PATH (04/01/2012 4:38 PM CUSTOMER SUCCESS INTERN) P athologist Signature Endo Tis See Path HP CONVERSION Specimen (Source) Anatomical Collection Method Collection Time Re ceived Time Location / / Volume Laterality 04/01/2012 4:38 PM CUSTOMER SUCCESS INTERN Tanner Allen MD LAB_1 Performing Organization Address City/State/ZIP Code Phon e Number HP CONVERSION documented in this encounter Visit Diagnoses Diagnosis Esophageal reflux Hiatal hernia Diaphragmatic hernia without mention of obstruction or gangrene documented in this encounter Care Teams Water/Wastewater Engineer Relationship Specialty Start Date End Date Pierre Evans MD PCP - General 08/23/[address] [place] [address] documented as of this encounter
--- OUTSIDE RECORDS SUMMARY | 2022-02-11 21:07 | XMS_ITS | Encounter Summary ---
:1950 Author Organization [facility] Address [address] [place] [address] Care Team Providers Name Role Phone Pierre Evans MD Primary Care Provider Encounter Details Date Type Department Care Team Description 04/13/2009 PN Conversion Only [facility] CONV Pierre Evans, [address] [place] [address] [place] [place] [address] (Wo rk) Social History Tobacco Use Types Packs/Day Years Used Date Smoking Tobacco: Never Assessed Sex Assigned at Date Recorded Not on file documented as of this encounter Plan of Treatment Not on filedocumented as of this encounter Procedures Procedure Name Priority Date/Time Associated Comments Diagnosis HELICOBACTER PYLORI Routine 04/13/2009 11:18 Resu lts for this IGG AM RETURN AGENT AIRPORT procedure are i n the results section. documented in this encounter Results HELICOBACTER PYLORI IGG (04/13/2009 11:18 AM RETURN AGENT AIRPORT) [facility] gist Method Time Signature Helicobacter Negative Negative HP CONVERSION pylori IgG Comment: No Helicobacter IgG antibody detected. This assay should be used only for patie nts with symptoms suggestive of gastrointest inal disease. Specimen (Source) Anatomical Collection Method Collection Time Re ceived Time Location / / Volume Laterality 04/13/2009 11:18 AM RETURN AGENT AIRPORT Pierre Evans MD LAB_1 Performing Organization Address City/State/ZIP Code Phon e Number HP CONVERSION documented in this encounter Visit Diagnoses Not on filedocumented in this encounter Care Teams Radio Disc Jockey Relationship Specialty Start Date End Date Pierre Evans MD PCP - General 08/23/[address] [place], [place] [address] documented as of this encounter
--- OUTSIDE RECORDS SUMMARY | 2022-02-11 21:07 | XMS_ITS | Encounter Summary ---
:1950 Author Organization [employer] Address [address] [address] Care Team Providers Name Role Phone Pierre Evans MD Primary Care Provider Reason for Visit Reason Comments Medication Problems Encounter Details Date Type Department Care Team Description 09/03/2013 Refill Pierre Busch M edication Problems Medicine [address] [place] [address] [address] [place] [phone] (Wo rk) Social History Tobacco Use Types Packs/Day Years Used Date Smoking Tobacco: Never Assessed Sex Assigned at Date Recorded Not on file documented as of this encounter Nursing Notes Pierre Evans MD - 09/03/2013 3:55 PM CDT Done. Corey Frederick LPN - 09/03/2013 3:45 PM CDT Spoke to Corey, he would like Rx sent to the [facility], address is [address] [place] [address]. Pierre Evans MD - 09/03/2013 3:25 PM CDT oxybutynin would be much less expensive and may work just as well. He would take 5 mg BID. I can send a prescription to the pharmacy if he would like to try it. Please notify pt. Thank you. Suzette Mccarthy - 09/03/2013 8:45 AM CDT He went to pick this up at the pharmacy and since his BCBS plan changed, he was to pay over $400 forthe rx. Is there anything else similar that he can take at a lower cost? Please advise. documented in this encounter Plan of Treatment Not on filedocumented as of this encounter Visit Diagnoses Diagnosis Bladder spasm - Primary Other specified disorders of bladder documented in this encounter Care Teams [employer] Officer Relationship Specialty Start Date End Date Pierre Evans MD PCP - General 08/23/10 [address] [facility] [place] [address] documented as of this encounter
--- OUTSIDE RECORDS SUMMARY | 2022-02-11 21:08 | XMS_ITS | Encounter Summary ---
:1950 Author Organization [facility] Address [address] [place] [address] Care Team Providers Name Role Phone Unavailable Primary Care Provider Unavailable Encounter Details Date Type Department Care Team Description 07/23/2020 [facility] Department of Family Medicine, [address] [phone] Social History Tobacco Use Types Packs/Day Years Used Date Smoking Tobacco: Never Assessed Sex Assigned at Date Recorded Not on file documented as of this encounter Plan of Treatment Not on filedocumented as of this encounter Visit Diagnoses Not on filedocumented in this encounter
--- OUTSIDE RECORDS SUMMARY | 2022-02-11 21:08 | XMS_ITS | Encounter Summary ---
:1950 Author Organization [facility] Address [address] [place] [address] Care Team Providers Name Role Phone Unavailable Primary Care Provider Unavailable Reason for Visit Reason Comments COVID Inquiry Encounter Details Date Type Department Care Team Description 04/14/2020 Clinical Communication Central Appointment CANDIDA Delarosa Office in [facility] [address] [place] [address] Social History Tobacco Use Types Packs/Day Years Used Date Smoking Tobacco: Never Assessed Sex Assigned at Date Recorded Not on file documented as of this encounter Miscellaneous Notes Telephone Encounter - Estephania Sky - 04/14/2020 11:28 AM CST COVID DOS/PASS Screening What is the patient requesting?: COVID-19 Testing Only (End screening - follow local process) Plan: Endpoint recommendation: Testing indicated, sent patient to [facility] located at [address] [place] [address]. The entrance is on the north side of the building. You must call [phone] for an appointment time.Testing hours are Daily 9 am to 7 pm.When you arrive at the testing site: Remain in your vehicle and check-in by phone using the same appointment line number. and Please avoid using public transportationper CDC recommendation. If you do not have personal transportation please self-quarantine until a personal transportation option is available. *Reminder if sending patient for testing in [facility] or [facility], an email notification is required. LOGIST documented in this encounter Plan of Treatment Not on filedocumented as of this encounter Visit Diagnoses Not on filedocumented in this encounter
--- OUTSIDE RECORDS SUMMARY | 2022-02-11 21:08 | XMS_ITS | Encounter Summary ---
:1950 Author Organization [facility] Address [address] [place] [address] Care Team Providers Name Role Phone Unavailable Primary Care Provider Unavailable Reason for Visit Reason Onset Date Comments Outpatient COVID-19 Testing 04/14/2020 Encounter Details Date Type Department Care Team Description 04/14/2020 External Outreach Department of [facility] Scales Infect ion Upper Internal Medicine in [facility] ([place], [place] [address]) [address] [place] [phone] Social History Tobacco Use Types Packs/Day Years Used Date Smoking Tobacco: Never Assessed Sex Assigned at Date Recorded Not on file documented as of this encounter Progress Notes Tawanda Mendoza R.N. - 04/14/2020 11:54 AM CST Encounter created for the drive-through COVID-19 testing. SSMENT ANALYST documented in this encounter Plan of Treatment Not on filedocumented as of this encounter Procedures Procedure Name Priority Date/Time Associated Diagnosis Comme nts SARS CORONAVIRUS-2 Routine 04/14/2020 2:05 PM Infection Upper Results for this RNA, V ASSESSMENT ANALYST Respiratory procedure are i n the results section. documented in this encounter Results SARS Coronavirus-2 RNA, V Symptomatic (04/14/2020 2:05 PM ASSESSMENT ANALYST) [employer] Method Time Signature SARS-CoV-2 Swab, 04/15/2020 [facility] Specimen Nasopharynx 4:48 AM ASSESSMENT ANALYST Source SARS CoV-2 Undetected Undetected 04/15/2020 [facility] RNA, TMA 4:48 AM ASSESSMENT ANALYST Comment: SARS-CoV-2 RNA absent. This result does not rule out COVID-19 in the patient, as the sensitivity of the test depends o n the timing of the specimen collection and the quality of the specim en. Result should be correlated with patient's history and clinical presentat ion. ----ADDITIONAL INFORMATION---- This test is performed using the Aptima SARS-CoV-2 assay ([employer] which has received Emergency Use Authori zation (EUA) by the U.S. Food and Drug Administration. Fact sheets for this Emergency Use Autho rization (EUA) assay can be found at the following links: For Healthcare Providers: https://www.[employer] a.gov/media/459910/download For Patients: https://www.fda.gov/media/ 419303/download Specimen Anatomical Collection Method Collection Time Receive d Time (Source) Location / / Volume Laterality Varies 04/14/2020 2:05 PM 0 (Nasopharynx) ASSESSMENT ANALYST 11:11 PM ASSESSMENT ANALYST Adama Scales D.O. LAB MICROBIOLOGY - GENERAL O GRACY Performing Organization Address City/State/ZIP Code Phon e Number [facility]- [address] [place] [address] [place] [address] [address] documented in this encounter Visit Diagnoses Diagnosis Infection Upper Respiratory - Primary documented in this encounter Additional Health Concerns Infection Onset Date Last Indicated Resolved Time COVID19 Pending 04/14/2020 04/14/2020 04/15/2020 4:49 AM ASSESSMENT ANALYST documented as of this encounter
--- OUTSIDE RECORDS SUMMARY | 2022-02-11 21:08 | XMS_ITS | Encounter Summary ---
:1950 Author Organization [facility] Address [address] [place] [address] Care Team Providers Name Role Phone Unavailable Primary Care Provider Unavailable Encounter Details Date Type Department Care Team Description 04/14/2008 Hospital Encounter HX NO MAPPING Miriam Johnson M.D. [address] [address] (Wo rk) Social History Tobacco Use Types Packs/Day Years Used Date Smoking Tobacco: Never Assessed Sex Assigned at Date Recorded Not on file documented as of this encounter Plan of Treatment Not on filedocumented as of this encounter Procedures Procedure Name Priority Date/Time Associated Diagnosis Comme nts SURGICAL PATHOLOGY Routine 04/14/2008 1:55 PM Res ults for this UPHOLSTERY PARTS SORTER procedure are i n the results section. documented in this encounter Results Pathology Surgical Pathology (04/14/2008 1:55 PM UPHOLSTERY PARTS SORTER) Specimen (Source) Anatomical Collection Method Collection Time Re ceived Time Location / / Volume Laterality 04/14/2008 1:55 PM UPHOLSTERY PARTS SORTER Narrative [facility] - 11/01/19 09 10:01 [place] [address] NAME: COREY FRASER MR#: [id number] ? RM#: : [id number] [facility] ?DOCTO R: Bryan Haq MD Pathology Report ?[facility]ICE DATE : [facility]/14/08 [facility] [address] ? Patient Name: COREY FRASER [address] [place], [place] ??[address] Soc. Sec. #:[id number] /Age/Sex: 1950 (Age: 58) ??M Collected: 04/14/2008 Received: 04/15/2008 Reported: 04/15/2008 Copy To: Physician(s): Antonina JOHNSON MD [facility] ??[id number] [address] [place] [address] [place] [address], ??[place] ??[address] CYTOPATHOLOGY NON-FOOD AND BEVERAGE ASSISTANT REPORT FINAL CYTOLOGIC DIAGNOSIS Urine: NEGATIVE FOR MALIGNANCY SATISFACTORY SPECIMEN FOR EVALUATION. Electronically Signed Out By [facility]/04/15/2008 Mitch MOON([facility]) SPECIMEN(S) RECEIVED: Urine CLINICAL HISTORY: HYPERACTIVE BLADDER GROSS DESCRIPTION: 2 CYTOSPINS PREPARED FROM 20 ML YELLOW F LUID, FIXED AT [facility] NAME: COREY FRASER Historical Provider LAB SURG PATH ORDERABLES Performing Organization Address City/State/ZIP Code Phon e Number [facility] documented in this encounter Visit Diagnoses Not on filedocumented in this encounter
--- OUTSIDE RECORDS SUMMARY | 2022-02-11 21:08 | XMS_ITS | Encounter Summary ---
:1950 Author Organization [facility] Address [address] [place] [address] Care Team Providers Name Role Phone Unavailable Primary Care Provider Unavailable Encounter Details Date Type Department Care Team Description 11/04/2007 Hospital Encounter HX NO MAPPING Miriam Johnson M.D. [address] [id number] (Wo rk) Social History Tobacco Use Types Packs/Day Years Used Date Smoking Tobacco: Never Assessed Sex Assigned at Date Recorded Not on file documented as of this encounter Progress Notes Miriam Johnson M.D. - 11/04/2007 12:00 AM CDT [facility] [place] [address] Name: COREY FRASER : 54 Attending Doctor: Miriam Johnson MD CLINIC NOTE UROLOGY DATE OF SERVICE: 11/04/2007 HISTORY: This is a 57-year-old male patient. He is here for followup after his September visit for benign prostatic hyperplasia which is controlled well with the Cardura 4 mg. He also has a hyperactive bladder, and was started on Ditropan 5 mg twice daily, but he is complaining of significant dryness of the mouth, this is bothersome for him, with some improvement in his frequency of urination, but nocturia x 3 which is still bothersome for him. AUA symptom score is 9. He had erectile dysfunction which has responded well to Cialis, associated with anxiety. Review of systems is otherwise unremarkable. FINAL IMPRESSION: 1. This patient with a benign prostatic hyperplasia, controlled well with the Cardura 4 mg. 2. Hyperactive neurogenic bladder, controlled reasonably well with the Ditropan, but with significant effects of dryness of the mouth. 3. This patient with erectile dysfunction associated with anxiety. Responded well to Cialis. PLAN OF MANAGEMENT: He will continue on the Cardura 4 mg and option of discontinuing his Ditropan versus switching him to a non-generic medication was discussed with him, and he prefers to be switched to a different medication given that he does have a good response to the Ditropan, but with significant side effects of dryness of his mouth. We will switch him to Sanctura 20 mg twice daily. Follow up with me in six weeks time. Time spent in counseling and arranging care is 15 minutes. AF:shae Doc#: [id number] Authenticated by Miriam Johnson M.D. on 12/03/2007 16:50:26 Authorized physician signature on file Miriam Johnson M.D. ON LICENSE OF [facility] DT: [address] [facility] TD: 11/07/07 TT: 0747 NAME: COREY FRASER Source: [facility] Document Id: [id number] Electronically signed by Conversion, [facility] Mechanical Technician [id number] at 10/23/2016 3:48 AM CDT documented in this encounter Plan of Treatment Not on filedocumented as of this encounter Visit Diagnoses Not on filedocumented in this encounter
--- OUTSIDE RECORDS SUMMARY | 2022-02-11 21:08 | XMS_ITS | Encounter Summary ---
:1950 Author Organization [facility] Address [address] [place] [address] Care Team Providers Name Role Phone Unavailable Primary Care Provider Unavailable Reason for Referral Specialty Diagnoses / Procedures Referred By Contact Refer red To Contact Juice Pino M.D. 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 [address] [place], [place] [phone] (Wo rk) Social History Tobacco Use Types Packs/Day Years Used Date Smoking Tobacco: Never Assessed Sex Assigned at Date Recorded Not on file documented as of this encounter Plan of Treatment Scheduled Referrals Name Type Priority Associated Order Schedule Diagnoses Covid immunization Outpatient Referral Routine Ex pected: office visit Initial 021 (Approximate), Expires: 07/21/2021 documented as of this encounter Visit Diagnoses Not on filedocumented in this encounter
--- OUTSIDE RECORDS SUMMARY | 2022-02-11 21:08 | XMS_ITS | Encounter Summary ---
:1950 Author Organization [facility] Address [address] [place] [address] Care Team Providers Name Role Phone Unavailable Primary Care Provider Unavailable Encounter Details Date Type Department Care Team Description 07/15/2007 Hospital Encounter HX NO MAPPING Miriam Johnson M.D. [address] [id number] (Wo rk) Social History Tobacco Use Types Packs/Day Years Used Date Smoking Tobacco: Never Assessed Sex Assigned at Date Recorded Not on file documented as of this encounter H&P Notes Miriam Johnson M.D. - 07/15/2007 12:00 AM CST [facility] [place] [address] Name: COREY FRASER : 54 Attending Doctor: Miriam Johnson MD HISTORY AND PHYSICAL ____ UROLOGY DATE OF SERVICE: 07/15/2007 HISTORY: This is a 57-year-old male patient new to the clinic, self-referred. The patient has a longstanding history of urinary frequency and urgency and urge incontinence, especially during cold weather. He has no specific nocturia - only nocturia times one, and has obstructive symptoms of incomplete emptying and intermittent voiding while during these intermittent episodes of cold weather especially. He has been symptomatic for several years. He immigrated to the [place] from [place] in the past two years. Has been on Vesicare for one year with no change in his symptomatology. He also has erectile dysfunction, intermittently being treated with Cialis with a satisfactory outcome, 10 mg tablets. PAST MEDICAL HISTORY: Unremarkable. PAST SURGICAL HISTORY: Bilateral vasectomy and bilateral knee surgery. MEDICATIONS: He is on Cialis on an as needed basis and also on Vesicare 10 mg daily and on Protonix 40 mg daily. ALLERGIES: No known drug allergy. FAMILY HISTORY: Negative for prostatic cancer. SOCIAL HISTORY: Also negative for smoking or alcohol intake. PHYSICAL EXAMINATION: GENERAL: He is an average built male in no acute distress. VITAL SIGNS: Within normal limits. ABDOMEN: Normal abdomen. No masses and no tenderness. Liver and spleen is not palpable. There is no flank tenderness bilaterally. No signs of hernias. GENITAL: Normal testicles bilaterally in size and consistency. Normal cords bilaterally. Penile exam - uncircumcised penis, normal in consistency. RECTAL: Good sphincter tone and a moderately enlarged prostate. No nodules suspicious for prostatic CA. FINAL IMPRESSION: 1. Patient with urinary frequency, possible benign prostatic hyperplasia. 2. Patient with erectile dysfunction, associated with anxiety, responding well to Cialis. PLAN OF MANAGEMENT: The patient will stop his Vesicare. Will give him a list of bladder irritants to avoid and will start him on Cardura 1 mg to be increased to 2 mg. Follow-up in one month's time with a uroflowmetry and a postvoiding residual, and will get PSA testing today. Also, will continue on the Cialis 20 mg, prescription was given. AF:cyrus J#: [id number] Authenticated by Miriam Johnson M.D. on 08/20/2007 17:15:29 Authorized physician signature on file Ahmed Elizabeth, M.D. cc: [facility] DT: [address] [facility] TD: 07/16/07 TT: 1803 NAME: COREY FRASER [facility] Document Id: [id number] documented in this encounter Plan of Treatment Not on filedocumented as of this encounter Visit Diagnoses Not on filedocumented in this encounter
--- OUTSIDE RECORDS SUMMARY | 2022-02-11 21:08 | XMS_ITS ---
:1950 Author Care Team Providers Name Role Phone LORI CABRALES Primary Care Provider [phone] Allergies Code Code System Name Reaction Severity Status Onset NKDA ? Medications Name Status Start Date Stop Date ? ? atorvastatin 20 mg tablet Active ? Not av ailable TAKE 1 TABLET BY MOUTH AT BEDTIME lisinopril 2.5 mg tablet Active ? Not edith ilable TAKE 1 TABLET BY MOUTH ONCE DAILY. tadalafil 5 mg tablet Active ? Not availa ble Take 1 tablet every day by oral route. tamsulosin 0.4 mg capsule Active ? Not av ailable TAKE 2 CAPSULES BY MOUTH ONCE DAILY AFTER A MEAL. tolterodine ER 4 mg capsule,extended release 24 hr Active ? Not available TAKE 1 CAPSULE (4 MG) BY MOUTH ONCE DAILY. Problems None recorded. Procedures Date Name Performed by ? ? Operative Procedure on Knee Information not available Results Lab Results None recorded. Past Encounters 02/06/2022 Increased Frequency of Urination; Lower Urinary Tract Symptoms Due to Benign Prostatic Hypertrophy Vini Magallanes MD: [address] [place] [address], Ph. Social History Tobacco Smoking Status Never Smoker Vaccine List None recorded. Plan of Care Reminders Provider Appointments None recorded. ? ? Lab None recorded. ? ? Referral None recorded. ? ? Procedures None recorded. ? ? Surgeries None recorded. ? ? Imaging None recorded. ? ? Vitals Height Weight BMI 5 ft 10 in 190 lbs 27.3 kg/m2
--- OUTSIDE RECORDS SUMMARY | 2022-02-11 21:08 | XMS_ITS | Encounter Summary ---
:1950 Author Organization [facility] Address [address] [place] [address] Care Team Providers Name Role Phone Unavailable Primary Care Provider Unavailable Encounter Details Date Type Department Care Team Description 12/16/2007 Hospital Encounter HX NO MAPPING Miriam Johnson M.D. [address] [address] (Wo rk) Social History Tobacco Use Types Packs/Day Years Used Date Smoking Tobacco: Never Assessed Sex Assigned at Date Recorded Not on file documented as of this encounter Progress Notes Miriam Johnson M.D. - 12/16/2007 12:00 AM CDT [facility] [place] [address] Name: COREY FRASER : 54 Attending Doctor: Miriam Johnson MD CLINIC NOTE UROLOGY DATE OF SERVICE: 12/16/2007 HISTORY: This is a 57-year-old male patient. He is here in a followup after his visit on the October,. The patient does have benign prostatic hyperplasia controlled well with the Cardura 4 mg. Also, erectile dysfunction associated with anxiety, controlled well with Cialis on an as needed basis. His main followup at this point is the hyperactive neurogenic bladder with initially a good response to Ditropan but the side effects of dryness of the mouth and he switched to Sanctura 20 mg twice daily. He does have an improvement of his symptoms with the Sanctura with no side effects or dryness of the mouth but experienced urgency and urge incontinence associated with the ice intake. No other complaints. The review of systems is otherwise unremarkable. FINAL IMPRESSION: Patient with benign prostatic hyperplasia, controlled well with the Cardura 4 mg in this patient with a hyperactive bladder with a good response to the Sanctura 20 mg but bladder irritants as ice causing him the discomfort. Patient with erectile dysfunction associated with anxiety, responding well to Cialis. PLAN OF MANAGEMENT: The options of switching him to a different medication versus avoiding ice intake was discussed with the patient and he elected to continue on the Sanctura 20 mg and avoiding bladder irritants agreed upon and he can increase his Sanctura to 40 mg twice daily if need be. Followup with me in three months' time. Time spent in counseling and arranging care is 15 minutes. AF:jad Doc#: [id number] Authenticated by Miriam Johnson M.D. on 02/10/2008 08:19:05 Authorized physician signature on file Miriam Johnson M.D. [facility] Special[facility] Clinic DT: [address] [facility] TD: 12/17/07 TT: 0707 NAME: COREY READ EVELIO Source: [facility] Document Id: [id number] Electronically signed by Conversion, [facility] Lotus Notes Administrator [id number] at 10/23/2016 4:25 AM CDT documented in this encounter Plan of Treatment Not on filedocumented as of this encounter Visit Diagnoses Not on filedocumented in this encounter
--- OUTSIDE RECORDS SUMMARY | 2022-02-11 21:08 | XMS_ITS | Encounter Summary ---
:1950 Author Organization [facility] Address [address] [place] [address] Care Team Providers Name Role Phone Unavailable Primary Care Provider Unavailable Encounter Details Date Type Department Care Team Description 03/16/2008 Hospital Encounter HX NO MAPPING Miriam Johnson M.D. [address] [address] (Wo rk) Social History Tobacco Use Types Packs/Day Years Used Date Smoking Tobacco: Never Assessed Sex Assigned at Date Recorded Not on file documented as of this encounter Progress Notes Miriam Johnson M.D. - 03/16/2008 12:00 AM CDT [facility] [place] [address] Name: COREY FRASER : 54 Attending Doctor: Miriam Johnson MD CLINIC NOTE UROLOGY DATE OF SERVICE: 03/16/2008 HISTORY: A 58-year-old male patient with benign prostatic hyperplasia and hyperactive bladder, post bladder control on Cardura 4 mg and Sanctura 20 mg twice daily and also with conservative measures. The patient is still symptomatic with the frequency of urination bothersome for him but also is complaining of the suprapubic discomfort and urgency. It is affecting his quality of life. His AUA symptom score is 12. He also has erectile dysfunction associated with anxiety and responding to Cialis. His PSA is 1.15 in June 2007. Review of systems otherwise unremarkable. FINAL IMPRESSION: Patient with benign prostatic hyperplasia on Cardura 4 mg and a hyperactive bladder on Sanctura and conservative measures with still symptomatic. PLAN OF MANAGEMENT: The patient will scheduled for cystoscopy and urodynamic study and further management will follow. He may consider also doing prostatic massage for ruling out chronic prostatitis for him subsequently and may consider also doing a cystoscopy under anesthesia to rule out interstitial cystitis depends on the finding of the cystoscopy and urodynamic study. Time spent in counseling and arranging care is 15 minutes. AF:deandre Doc#: [id number] Authenticated by Miriam Johnson M.D. on 04/21/2008 21:09:49 Authorized physician signature on file Miriam Johnson M.D. [facility] Specialty Clinic DT: [address] [facility] TD: 03/17/08 TT: 0858 NAME: COREY FRASER Source: [facility] ISJHXDICTAPHONESYS Document Id: [id number] Electronically signed by Conversion, [facility] Health Care Technician [id number] at 10/23/2016 5:03 AM CDT documented in this encounter Plan of Treatment Not on filedocumented as of this encounter Visit Diagnoses Not on filedocumented in this encounter
--- OUTSIDE RECORDS SUMMARY | 2022-02-11 21:08 | XMS_ITS | Encounter Summary ---
:1950 Author Organization [facility] Address [address] [place] [address] Care Team Providers Name Role Phone Unavailable Primary Care Provider Unavailable Encounter Details Date Type Department Care Team Description 05/22/2008 Hospital Encounter HX NO MAPPING Miriam Johnson M.D. [address] [address] (Wo rk) Social History Tobacco Use Types Packs/Day Years Used Date Smoking Tobacco: Never Assessed Sex Assigned at Date Recorded Not on file documented as of this encounter Progress Notes Miriam Johnson M.D. - 05/22/2008 12:00 AM CST [facility] [place] [address] Name: COREY FRASER : 54 Attending Doctor: Miriam Johnson MD CLINIC NOTE UROLOGY DATE OF SERVICE: 05/22/2008 HISTORY: This is a 58-year-old male patient in followup after his last visit 04/13/2008. The patient does have benign prostatic hyperplasia on Cardura 4 mg and also does have hyperactive bladder on Sanctura 20 mg twice daily. He did have his cystoscopy with urodynamic study with no other abnormalities found except for his benign prostatic hyperplasia and hyperactive bladder. He also had urine cytology sent which was negative for any malignant cells. His FISH test was inconclusive due to the insufficient amount of specimen submitted. The patient is satisfied with his voiding pattern with nocturia x 1 most of the time. Intermittently, he experiences episodes of nocturia 3 to 4 times, but that is when he has not been following his conservative measures of avoiding bladder irritants. Otherwise, when he is following his conservative measures, he has a satisfactory outcome. REVIEW OF SYSTEMS: Review of systems is otherwise unremarkable. FINAL IMPRESSION: This is a patient with benign prostatic hyperplasia controlled well with Cardura 4 mg and hyperactive bladder controlled with conservative measures and Sanctura 20 mg twice daily. PLAN OF MANAGEMENT: The patient will continue on the present treatment. [place] to [place] new job in June, and all his records will be forwarded to his future physician. Meanwhile, we will give him a prescription with a 6-month refill. AF:jacques Doc#: [id number] Authenticated by Miriam Johnson M.D. on 06/26/2008 17:55:31 Authorized physician signature on file Miriam Johnson M.D. cc: [facility] DT: [address] [facility] TD: 05/22/08 TT: 2057 NAME: COREY FRASER Source: [facility] ISJHXDICTAPHONESYS Document Id: [id number] documented in this encounter Plan of Treatment Not on filedocumented as of this encounter Visit Diagnoses Not on filedocumented in this encounter
--- OUTSIDE RECORDS SUMMARY | 2022-02-11 21:08 | XMS_ITS | Encounter Summary ---
:1950 Author Organization [facility] Address [address] [place] [address] Care Team Providers Name Role Phone Unavailable Primary Care Provider Unavailable Encounter Details Date Type Department Care Team Description 09/23/2007 Hospital Encounter HX NO MAPPING Miriam Johnson M.D. [address] [address] (Wo rk) Social History Tobacco Use Types Packs/Day Years Used Date Smoking Tobacco: Never Assessed Sex Assigned at Date Recorded Not on file documented as of this encounter Progress Notes Miriam Johnson M.D. - 09/23/2007 12:00 AM CDT [facility] [place] [address] Name: COREY FRASER : 54 Attending Doctor: Miriam Johnson MD CLINIC NOTE UROLOGY DATE OF SERVICE: 09/23/2007 HISTORY: This is a 57-year-old male patient with benign prostatic hyperplasia. He is here in six week follow-up after increasing his Cardura to 4 mg from a 2 mg basis and reports still the frequency of urination, the urgency, and urge incontinence which is bothersome for him. His AUA symptom score is 12 and his uroflowmetry today showing a maximum flow rate of 7 mL per second in a 30 mL voided volume only, and a postvoiding residual by bladder scan of 65 mL. The patient's erectile dysfunction is responding well to Cialis which is associated with anxiety. REVIEW OF SYSTEMS: Review of systems otherwise unremarkable. MEDICATIONS: His medications are listed and reviewed today. FINAL IMPRESSION: 1. Patient with benign prostatic hyperplasia with moderate improvement on the Cardura 4 mg. 2. Hyperactive neurogenic bladder possibly causing the urge incontinence. 3. Patient with erectile dysfunction associated with anxiety, responding well to Cialis. PLAN OF MANAGEMENT: The patient will continue on the Cardura. We will add Ditropan 5 mg twice daily and continue on the Cialis. Follow-up with me in six weeks time. We will check his postvoiding residual at that time. Time spent in counseling and arranging care is 15 minutes. AF:cyrus Doc#: [id number] Authenticated by Miriam Johnson M.D. on 10/22/2007 15:16:43 Authorized physician signature on file Miriam Johnson M.D. cc: [facility] DT: [address] [facility] TD: 09/24/07 TT: 2239 NAME: COREY FRASER Source: [facility] Document Id: [id number] documented in this encounter Plan of Treatment Not on filedocumented as of this encounter Visit Diagnoses Not on filedocumented in this encounter
--- OUTSIDE RECORDS SUMMARY | 2022-02-11 21:08 | XMS_ITS | Encounter Summary ---
:1950 Author Care Team Providers Name Role Phone Warren Vyas Primary Care Provider [phone] Reason for Visit Frequency/Urgency of Urination Assessment and Plan 1. Increased frequency of urination 1. Urinary frequency - bladder empties well (PVR = 6 mL) - discussed options - oral medication, b ladder Botox, or electrical stimulation (PTNS or Interstim) - continue Tolterodine LA 4 mg daily (back pain may be contributing) - Follow-up in 1 year with Bladder scan 2. Lower urinary tract symptoms due to benign prostatic hypertrophy 2. BPH - hold Flomax 0.8 mg daily - try Cialis 5 mg daily - if no improvem ent, restart Flomax - Follow-up in 1 year with PSA, UA, and Bladder scan ? tadalafil 5 mg tablet ? tadalafil 5 mg tablet ? PSA, total, serum or plasma Discussion Note: None recorded.Patient educational handouts: No information available. Plan of Care Reminders Provider Appointments Return to Office on or around Vini tomas MD 01/07/2023 Lab PSA, Total, Serum or 02/06/2022 ? Plasma Referral None recorded. ? ? Procedures None recorded. ? ? Surgeries None recorded. ? ? Imaging None recorded. ? ? Medications Name Start Date ? ? atorvastatin 20 mg tablet ? TAKE 1 TABLET BY MOUTH AT BEDTIME lisinopril 2.5 mg tablet ? TAKE 1 TABLET BY MOUTH ONCE DAILY. tadalafil 5 mg tablet ? Take 1 tablet every day by oral route. tamsulosin 0.4 mg capsule ? TAKE 2 CAPSULES BY MOUTH ONCE DAILY AFTER A MEAL. tolterodine ER 4 mg capsule,extended release 24 hr ? TAKE 1 CAPSULE (4 MG) BY MOUTH ONCE DAILY. Medications Administered None recorded. Vitals Height Weight BMI 5 ft 10 in 190 lbs 27.3 kg/m2 Results Lab Results None recorded. Allergies Code Code System Name Reaction Severity Onset NKDA ? ? ? Problems None recorded. Procedures Date Name Performed by ? ? Operative Procedure on Knee Information not available Vaccine List None recorded. Social History Tobacco Smoking Status Never Smoker What was the date of your most 02/06/2022 recent tobacco screening? What is your level of alcohol Occasional consumption? When did you quit smoking? Notes: occa sional cigar currently, pipe in the past Functional Status Unknown. Past Encounters 02/06/2022 Increased Frequency of Urination; Lower Urinary Tract Symptoms Due to Benign Prostatic Hypertrophy Vini Magallanes MD: [address] [place] [address], Ph. History of Present Illness Note: <div>72 yo male with 10-15 years of urinary frequency, urgency, and incontinence. He has tried Vesicare 10 mg daily (some improvement), Myrbetriq 50 mg daily (minimal improvement), Oxybutynin 5 mg BID, Oxybutynin ER 15 mg daily (no improvement), and Tovias 8 mg daily (no change). </div><div>He is currently on Detrol LA 4 mg daily and Flomax 0.8 mg daily.</div><div> </ div><div>10/11/20 - He presents for follow-up on urination. He still has occasional urgency with leakage. He denies hesitancy and dysuria. He voids every 1-3 hours during the day and 0-2x/night. </div><div>
</div><div>02/06/22 - He presents for follow-up urination. He reports significant lumbar back pain over the past few weeks. He voids every 2-3 hours during the day and 0-5x/night. He reports occasional urgency - denies dysuria or weak stream.He states he has tried Cialis 10 mg in the past for ED (caused headaches).</div><div>- PVR = 6 mL</div><div> </div><div>PSA - 1.3 (12/23/15) </div><div>- 1.3 (12/26/17) </div><div>- 1.5 (12/05/18) </div><div>- 2.0 (12/16/19)</div> Review of Systems ? Comprehensive General Adult ROS Reported By: Patient Constitutional: Constitutional: no fever, no chills Eyes: Eyes: no dry eyes, no vision change, no irritation Endocrine: Endocrine: no fatigue, no in creased thirst Cardiovascular: Cardiovascular: no chest floyd n, no palpitations Integumentary: Skin: no rashes, no change i n skin color Respiratory: Respiratory: no wheezing, no cough, no shortness of breath Gastrointestinal: Gastrointestinal: no abdomin al pain, no nausea, no vomiting, no constipation, no GERD Musculoskeletal: Musculoskeletal: no neck floyd n, back pain Neurologic: Neurologic: no tremor, no di zziness, no numbness, no headaches Genitourinary: Genitourinary: no difficulty urinating, urinary loss of control ENMT: Ears: no ear pain. Mouth/Thr oat: no sore throat Allergic/Immunologic: Allergy/Immunologic: no itch ing, no hives Hematologic/Lymphatic: Hematologic/Lymphatic no swo llen glands, no excessive bleeding Psychiatric: Psych: no hallucinations, (n ormal) sleep disturbances: mismatch of sleep / wake sonia edule with lifestyle needs Physical Exam ? Urology Male Reported By: Patient Constitutional: General Appearance: healthy- appearing, overweight. Level of Distress: no acute distress Abdomen: Inspection and Palpation: so ft, no tenderness, no masses, no CVA tenderness Rectal: Anus, Perineum, Rectum: norm al tone, no hemorrhoids, no lesions, no fissures, no masses. Prostat e: non-tender, smooth / no nodules, enlarged; 40 gm - no nodule Skin: General Appearance of extrem ities: no edema. Inspection and palpation: normal temperatur e, no rash, no lesions
--- OUTSIDE RECORDS SUMMARY | 2022-02-11 21:08 | XMS_ITS | Encounter Summary ---
:1950 Author Organization [facility] Address [address] [place] [address] Care Team Providers Name Role Phone Unavailable Primary Care Provider Unavailable Encounter Details Date Type Department Care Team Description 04/14/2020 Admin Visit Department of Family Medicine, [address] [address] [facility] [phone] Social History Tobacco Use Types Packs/Day Years Used Date Smoking Tobacco: Never Assessed Sex Assigned at Date Recorded Not on file documented as of this encounter Plan of Treatment Not on filedocumented as of this encounter Visit Diagnoses Not on filedocumented in this encounter Additional Health Concerns Infection Onset Date Last Indicated Resolved Time COVID19 Pending 04/14/2020 04/14/2020 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
--- OUTSIDE RECORDS SUMMARY | 2022-02-11 21:08 | XMS_ITS | Encounter Summary ---
:1950 Author Organization [facility] Address [address] [place] [address] Care Team Providers Name Role Phone Unavailable Primary Care Provider Unavailable Encounter Details Date Type Department Care Team Description 08/12/2007 Hospital Encounter HX NO MAPPING Miriam Johnson M.D. [address] [id number] (Wo rk) Social History Tobacco Use Types Packs/Day Years Used Date Smoking Tobacco: Never Assessed Sex Assigned at Date Recorded Not on file documented as of this encounter Progress Notes Miriam Johnson M.D. - 08/12/2007 12:00 AM CDT [facility] [place] [address] Name: COREY FRASER : 54 Attending Doctor: Miriam Johnson MD CLINIC NOTE UROLOGY DATE OF SERVICE: 08/12/2007 HISTORY: This is a 57-year-old male patient with benign prostatic hyperplasia. He is here in follow-up after being started on Cardura - at the present time on 2 mg dosage and stopping his Vesicare and also on conservative measures of avoiding bladder irritants. He has noted an improvement in voiding symptoms with resolution of his obstructive symptoms but still has some frequency of urination during the day. His AUA symptom score is 8 and his uroflowmetry today showing a maximum flow rate of 17 mL per second in a 70 mL voided volume and postvoiding residual by bladder scan of 0. The patient has no significant side effects associated with the Cardura. He also has erectile dysfunction associated with anxiety and responding well to Cialis. PAST HISTORY/FAMILY HISTORY/SOCIAL HISTORY/ALLERGIES/MEDICATIONS/AND PHYSICAL EXAM: Is unchanged from the note of the previous visit of the June,. FINAL IMPRESSION: 1. Patient with benign prostatic hyperplasia with moderate response to the Cardura 2 mg. 2. Patient with erectile dysfunction, responding well to Cialis, associated with anxiety. PLAN OF MANAGEMENT: The patient will increase his Cardura to 4 mg for four weeks time and he may increase it on his own to an 8 mg dosage and follow-up with me in six weeks time with a uroflowmetry and a postvoiding residual. He will continue on Cialis on an as needed basis for his erectile dysfunction. AF:cyrus Doc#: [id number] Authenticated by Miriam Johnson M.D. on 08/21/2007 14:42:15 Authorized physician signature on file iMriam Johnson M.D. cc: [facility] DT: [address] [facility] TD: 08/12/07 TT: 1718 NAME: COREY FRASER Source: [facility] ISJ[facility] Document Id: [id number] Electronically signed by Conversion, [facility] Medical Editor [id number] at 10/23/2016 2:31 AM CDT documented in this encounter Plan of Treatment Not on filedocumented as of this encounter Visit Diagnoses Not on filedocumented in this encounter
--- OUTSIDE RECORDS SUMMARY | 2022-02-11 21:08 | XMS_ITS | Encounter Summary ---
:1950 Author Organization [facility] Address [address] [place] [address] Care Team Providers Name Role Phone Unavailable Primary Care Provider Unavailable Encounter Details Date Type Department Care Team Description 04/13/2008 Hospital Encounter HX NO MAPPING Miriam Johnson M.D. [address] [id number] (Wo rk) Social History Tobacco Use Types Packs/Day Years Used Date Smoking Tobacco: Never Assessed Sex Assigned at Date Recorded Not on file documented as of this encounter Procedure Notes Miriam Johnson M.D. - 04/13/2008 12:00 AM CST [facility] [place] [address] Name: COREY FRASER : 54 Attending Doctor: Miriam Johnson MD PROCEDURE NOTE UROLOGY DATE: 04/13/2008 PREOPERATIVE DIAGNOSIS: Urinary frequency. POSTOPERATIVE DIAGNOSIS: 1. Hyperactive bladder with early bladder sensation, small bladder capacity. 2. Patient with benign prostatic hyperplasia symptomatic. SURGEON: Miriam Johnson M.D. LPN MEDICAL ASSISTANT: DATE OF OPERATION: 04/13/2008 OPERATION: Filling and voiding cystometrogram with EMG activity under fluoroscopy and flexible cystoscopy. ANESTHESIA: Local with 2% Xylocaine gel. DESCRIPTION OF PROCEDURE: With the patient in the sitting position on the urodynamic chair, measurements of the intravesical and intraabdominal detrusor pressure and EMG activity was done under fluoroscopy. Patient had the first desire at 76 mL, normal desire at 105 mL, had the flow rate at 30 mL per minutes. He had the strong desire at 255 mL, urgency at 283 mL, reached cystometric capacity at 304 mL. There was no increase in detrusor pressure in the filling phase. Proper EMG activity. No evidence of reflux seen under fluoroscopy and normal bladder contour is noted. In the voiding phase, proper EMG activity is noted and detrusor pressure up to 30 cm of water. Patient completed emptied with minimal postvoiding residual with a high maximum flow rate of 33 mL per second. The patient was disconnected from the machine and placed in the lithotomy position and reprepped and draped , 2% Xylocaine gel was then instilled locally. Flexible scope was advanced under vision and inspection of the urethra showed lateral lobes of prostate partially obstructing measuring 3 cm in length of prostatic urethra. Inspection of the bladder showed normal-appearing bladder mucosa. Normal trigone. Normal ureteric orifices. Moderate degree of bladder trabeculation is noted. The scope was removed. The patient tolerated the procedure well. FINAL IMPRESSION: 1. Patient with hyperactive bladder, presently on the Sanctura 20 mg twice daily and conservative measures who is still symptomatic. 2. Patient with benign prostatic hyperplasia controlled with Cardura 4 mg. 3. Patient with rule out carcinoma in situ or interstitial cystitis or chronic prostatitis. PLAN OF MANAGEMENT: We will continue on the present treatment. Will have the patient submit a urine and it will be sent for cytology and FISH test. Follow up with me in 2 weeks' time to 3 weeks' time when we get the results of the FISH test. If it is negative, then we will proceed prostatic massage for ruling out chronic prostatitis and that also negative, then we will proceed with cystoscopy under anesthesia. AF:kiran Doc#: [id number] Authenticated by Miriam Johnson M.D. on 04/22/2008 12:42:36 Authorized physician signature on file Miriam Johnson M.D. cc: [facility] DT: [address] [facility] TD: 04/14/08 TT: 1348 NAME: COREY FRASER Source: [facility] Document Id: [id number] documented in this encounter Plan of Treatment Not on filedocumented as of this encounter Visit Diagnoses Not on filedocumented in this encounter
--- OUTSIDE RECORDS SUMMARY | 2022-02-11 21:08 | XMS_ITS | Encounter Summary ---
:1950 Author Organization [facility] Address [address] [place] [address] Care Team Providers Name Role Phone Unavailable Primary Care Provider Unavailable Encounter Details Date Type Department Care Team Description 05/05/2008 Hospital Encounter HX NO MAPPING Miriam Johnson M.D. [address] [id number] (Wo rk) Social History Tobacco Use Types Packs/Day Years Used Date Smoking Tobacco: Never Assessed Sex Assigned at Date Recorded Not on file documented as of this encounter Plan of Treatment Not on filedocumented as of this encounter Visit Diagnoses Not on filedocumented in this encounter
[2022-02-11 21:24] VITALS: BP 132/71; PULSE 72; RESP 16; O2SAT 98
== END 2022-02-11 21:27 | disposition home or self-care (01) ==
PROVIDERS: Emergency Provider Family Medicine; PCP Student in an Organized Health Care Education/Training Program
DX: R12 Heartburn (principal); R06.6 Hiccough
CPT/HCPCS: 99283; 99284; A9270

== ENCOUNTER 2024-09-02 15:15 | Emergency (ER) | payer MEDICARE, BC, SELFPAY ==
[2024-09-02 15:32] VITALS: BP 176/89; PULSE 84; RESP 20; TEMP 36.9; O2SAT 99
--- OUTSIDE RECORDS SUMMARY | 2024-09-02 15:36 | XMS_ITS | Clinical Summary ---
Author Organization [facility] Address [address] [place] [address] Care Team Providers Care Matting Press Tender Name Role Phone Pierre Evans MD Primary Care Provider [phone] Source Comments You are receiving this document as you are listed as the primary care provider,follow-up provider, or the patient has been referred to you for consultation.This is in compliance with the Medicare and[facility] Cent[facility]aid EHR Incentive Program,which states Providers who transition their patient to another setting of careor provider of care or refers their patient to another provider of care shouldprovide summary care record for each transition of care or referral. [facility] Allerg[facility] No known active allergies Medications esomeprazole (NEXIUM) 20 MG capsule Take 1 capsule by mouth 2 times daily (before meals). 0 6 Active Tadalafil (CIALIS) 10 MG tabletIndications:E rectile dysfunction of organic origin Take 1 tablet 30-60 minutes prior to sexual activity. 90 Tablet 8 Active Multiple Vitamins-Minerals (CENTRUM SILVER 50+MEN OR) Active tolterodine (DETROLLA) 4 MG 24 hour release capsule 2 9 Active Ascorbic Acid (VITAMIN C) 1000 MG tablet 0 Active lisinopril (ZESTRIL) 2.5 MG tabletIndications:E ssential hypertension (HRC) TAKE ONE TABLET BY MOUTH EVERY DAY 90 Tablet 1 Active atorvastatin (LIPITOR) 20 MG tabletIndications:H yperlipidemia, unspecified hyperlipidemia type (HRC) Take 1 Tablet by mouth daily. 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 Recurrent Essential hypertension 04/07/2010 GERD (gastroesophageal reflux disease) History of colonic polyps Overview (01/10/2017): Repeat colonoscopy in 2016 ; Personal history of colonic polyps Resolved Problems Problem Noted Date Diagnosed Date Resolved Date Reflux esophagitis 04/05/2012 0 Immunizations Immunization Administration Dates Next Due Influenza IIV4 (Quadrivalent) 0.5mL (21950) 01/19 PCV13 (Prevnar) 05/23/2017 PPSV23 (Pneumovax) 12/05/2018 TDAP (ADACEL) 11/18/2010 Zoster (Zostavax) 02/06/2012 Zoster RZV (Shingrix) 03/02/2020 Family History Medical History Relation Name Comments Cancer Mother Colon Thyroid Disorder Sister 1 Relation Name Status Comments Father (Age 87) Mother (Age 77) Colon canc er Brother Alive Sister 1 Alive Sister 2 Alive Sister 3 Alive Social History Tobacco Use Types Packs/Day Years Used Date Smoking Tobacco: Some Days Cigars Smokeless Tobacco: Never Comments:1 a day Alcohol Use Standard Drinks/Week Comments Yes 5 (1 standard drink = 0.6 oz pur e alcohol) PHQ-2 Answer Date Recorded PHQ-2 Score 1 12/16/2019 Sex and Gender Information Value Date Recorded Sex Assigned at Not on file Legal Sex Male 1:47 AM CDT Gender Identity Not on file Sexual Orientation Not on file Occupation Industry Job Start Date Job End Date Not on file Not on file Not on file Not on file Last Filed Vital Signs Vital Sign Reading Time Taken Comments Blood Pressure 128/73 02/25/2020 7:49 AM CDT Pulse 80 02/25/2020 7:49 AM CDT Temperature 36.8 C (98.3 F) 02/25/2020 7:49 AM CDT Respiratory Rate 14 06/26/2017 9:53 AM [employer] Oxygen Saturation 95% 04/01/2012 4:45 PM [employer] Inhaled Oxygen Concentration - - Weight 87.1 kg (192 lb) 02/25/2020 7:49 AM CDT Height 179.1 cm (5' 10.5) 02/25/2020 7:49 AM CD T Body Mass Index 27.16 02/25/2020 7:49 AM CDT Plan of Treatment Health Maintenance Due Date Last Done Comments DTaP/Tdap/Td (2 - Tdap) 11/18/2020 11/18/2010 Medicare Annual Wellness Visit 12/15/2020 12/16/2019, 12/05/2018 Colonoscopy 03/21/2021 03/21/2016 (Comp leted), 02/07/2011 (Completed) COVID-19 Vaccine ( season) 2024 07/23/2020 Influenza (#1) 2024 02/03/2020 Cholesterol 12/15/2024 12/16/2019, 09/2018, 12/05/2018, Additional history exists RSV (1 - 1-dose 75+ series) 01/21/2027 Hep C Screening (Preventive Services) Completed 12/25/2016 Pneumococcal 50+ Yrs Completed 12/05/2018, 05/23/19 Abdominal Aortic Aneurysm (AAA) Screening Discontinued 03/03/2020 Zoster/Shingles Completed 05/28/2020, 02/18, 02/06/2012 HepA Aged Out No longer eligi ble based on patient's age to complete this topic HepB Aged Out No longer eligi ble based on patient's age to complete this topic Hib Aged Out No longer eligi ble based on patient's age to complete this topic IPV (Polio) Aged Out No longer eligi ble based on patient's age to complete this topic MCV4 Aged Out No longer eligi ble based on patient's age to complete this topic Meningococcal B Aged Out No longer el igible based on patient's age to complete this topic Procedures Procedure Name Priority Date/Time Associated Diagnosis Comments US ABD AAA SCREENING Routine 03/03/2020 9:27 AM CDT Tobacco use LIPID PANEL & DIRECT LDL (IF NEEDED) Routine 12/16/2019 9:40 AM CDT Hyperlipidemia, unspecified hyperlipidemia type HEPATITIS C ANTIBODY, WITH REFLEX Routine 12/25/2016 9:01 AM CDT Need for hepatitis C screening test from Last 3 Months or Most Recently Relevant to Health Maintenance Results * US Abd AAA Screening (03/03/2020 9:27 AM CDT) Anatomical Region Laterality Modality Abdomen Ultrasound 03/03/2020 8:42 AM CDT Impressions 03/03/2020 10:05 AM CDT HISTORY: Evaluate for AAA. COMPARISON: None. FINDINGS: Proximal abdominal aorta measures (AP x Width): 2.7 x 2.7 cm Mid abdominal aorta measures (AP x Width): 2.1 x 2.0 cm Distal abdominal aorta measures (AP x Width): 1.9 x 1.9 cm Right common iliac artery measures 1.4 cm in maximum caliber. Left common iliac artery measures 1.6 cm in maximum caliber. IMPRESSION: No evidence of abdominal aortic aneurysm. Borderline ectasia right common iliac artery and minimal ectasia left common iliac artery. PN Consensus recommendation for asymptomatic abdominal aortic aneurysm follow- up: 3.0-3.4 cm, recommend follow-up ultrasound in 2 years 3.5-4.4 cm, recommend follow-up ultrasound in 1 year 4.5-4.9 cm, recommend follow-up ultrasound in 6 months 5.0 cm or greater OR growth exceeding 5 mm in 6 months or 10 mm in 1 year, recommend consultation with vascular surgery Narrative Procedure Note Victor M Gonsalez MD - 03/03/2020 IMPRESSION HISTORY: Evaluate for AAA. COMPARISON: None. FINDINGS: Proximal abdominal aorta measures (AP x Width): 2.7 x 2.7 cm Mid abdominal aorta measures (AP x Width): 2.1 x 2.0 cm Distal abdominal aorta measures (AP x Width): 1.9 x 1.9 cm Right common iliac artery measures 1.4 cm in maximum caliber. Left common iliac artery measures 1.6 cm in maximum caliber. IMPRESSION: No evidence of abdominal aortic aneurysm. Borderline ectasia right commoniliac artery and minimal ectasia left common iliac artery. PN Consensus recommendation for asymptomatic abdominal aortic aneurysmfollow-up: 3.0-3.4 cm, recommend follow-up ultrasound in 2 years 3.5-4.4 cm, recommend follow-up ultrasound in 1 year 4.5-4.9 cm, recommend follow-up ultrasound in 6 months 5.0 cm or greater OR growth exceeding 5 mm in 6 months or 10 mm in 1 year,recommend consultation with vascular surgery Pierre Evans MD [facility] US Final Resul t * (ABNORMAL) Lipid Panel - LDLD If Trig High (12/16/2019 9:40 AM CDT) Cholesterol 132 0 - 199 mg/dL 12/16/2019 2:39 PM CDT [facility] Triglyceride 131 <=149 mg/dL 12/16/2019 2:39 PM CDT [facility] HDL Cholesterol 31(L) >=40 mg/dL 0 2:39 PM CDT [facility] LDL, Calculated 75 <130 mg/dL 0 2:39 PM CDT [facility] Non HDL Chol, Calculated 101 mg/dL 12/16/2019 2:39 PM CDT [facility] Cholesterol/HDL Ratio 4.3 12/16/2019 2:39 PM CDT [facility] Hours Fasting 12 12/16/2019 2:39 PM CDT [facility] (PN) Blood Venipuncture / Unknown 12/16/2019 9:40 AM CDT 12/16/2019 9:40 AM CDT Pierre Evans MD LAB_1 Final Resul t [facility] [address] [place] [address], [facility] (PN) [address] [place] [address], [facility] [phone] * Hepatitis C Virus Bren with Reflex (12/25/2016 9:01 AM CDT) Hepatitis C Antibody Nonreactive Nonreactive PN SOFT 12/25/2016 9:01 AM CDT 12/25/2016 12:08 PM CDT Narrative PN KELLY - 12/25/2016 12:51 PM CDT Performed at [facility], [address] [place] [address] CLIA number [id number] Pierre Evans MD LAB_1 Final Resul t [facility] [address] [place] [address] from Last 3 Months or Most Recently Relevant to Health Maintenance Insurance MEDICARE MANAGED CARE [facility] [place] [employer] Care Teams Matting Press Tender Relationship Specialty Start Date End Date Pierre Evans MD [address] [facility] [place] [address] [facility] - General 08/23/10
--- OUTSIDE RECORDS SUMMARY | 2024-09-02 15:36 | XMS_ITS | Clinical Summary ---
Author Organization [email or web address] Address [address] [place] [address] Care Team Providers Care Rn Provider Relations Name Role Phone Teofilo Chau DO Primary Care Provider Allergies No known active allergies Medications multivitamin (MULTIPLE VITAMINS) tablet Take 1 tablet by mouth once daily. 0 0 Active desmopressin (DDAVP) 0.1 mg tabletIndications:N octuria Take 0.5 Tablets (0.05 mg) by mouth at bedtime. 45 Tablet 3 4 Active psyllium powdIndications:Fec al smearing Mix 1 tsp in liquid then take by mouth once daily if needed for Constipation . 283 g 11 5 Active valsartan (DIOVAN) 40 mg tabletIndications:E ssential hypertension Take 1 Tablet (40 mg) by mouth once daily. 90 Tablet 3 5 Active tamsulosin 0.4 mg capsuleIndications: Urinary frequency TAKE 2 CAPSULES BY MOUTH ONCE DAILY AFTER A MEAL, DO NOT CRUSH OR CHEW OR GIVE VIA G TUBE 180 Capsule 2 5 Active atorvastatin (LIPITOR) 20 mg tabletIndications:M ixed hyperlipidemia TAKE 1 TABLET BY MOUTH AT BEDTIME 90 Tablet 2 5 Active esomeprazole delayed release capsule (NEXIUM) 40 mgIndications:Chron ic GERD TAKE 1 CAPSULE BY MOUTH EVERY DAY BEFORE A MEAL 90 Capsule 2 5 Active DULoxetine (CYMBALTA) 20 mg Delayed-release capsuleIndications: Urinary incontinence, urge Take 2 Capsules (40 mg) by mouth once daily. 90 Capsule 3 5 Active celecoxib (CELEBREX) 200 mg capsuleIndications: Thoracic degenerative disc disease,Chronic bilateral low back pain without sciatica Take 1 Capsule (200 mg) by mouth once daily with a meal. 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 Recurrent Essential hypertension 04/07/2010 Encounters Date Type Department Care Team Description 08/01/2024 12:50 PM CDT Office Visit [facility] [address] [place] [address] Teofilo Chau, Incontinence 07/31/2024 Travel 07/04/2024 Refill [facility] [address] [place] [address] Teofilo Chau DO Refill Request (Atorvastatin, Esomeprazole Delayed Release Capsule) 06/30/2024 Refill [facility] [address] [place] [address] Teofilo Chau DO Refill Request (Tamsulosin) from Last 3 Months Immunizations Immunization Administration Dates Next Due COVID-19 VACCINE SPIKEVAX (M ODERNA 50MCG/0.5ML) 12YO+ PFS 06/05/2023 COVID-19 vaccine (AF83 NTech 30mcg/0.3mL) 12YO+ BIVALENT PF, MDV 02/07/2022 COVID-19 vaccine (Pfizer-Bio NTech 30mcg/0.3mL) 12YO+ SANTANA-SUCROSE PF, MDV 10/25/2021 COVID-19 vaccine ([employer] 30mcg/0.3mL) P F, MDV 03/23/2021 HepA-HepB (Twinrix) 10/16/2023,10/09/2023 Influenza, IIV4 02/03/2020 Influenza, Inactivated AIIV4 (Age 65+ Years) Preserv Free 05/11/2023,02/07/2022 Pneumococcal Poly,23-Valent (Pneumovax) 12/06/19 19 Pneumococcal conj 13-Valent (Prevnar 13) 018 Td (Age >=7 Years) 03/10/2021 Tdap 11/18/2010 Typhoid (injectable) 10/09/2023 Zoster (Shingrix-RZV, recombinant) 05/28/2020, Zoster (Zostavax-ZVL, live) 02/06/2012 Family History Medical History Relation Name Comments Cancer-colon Maternal Uncle 2 brothers pa ssed away Cancer-colon Mother Relation Name Status Comments Maternal Uncle Mother Social History Tobacco Use Types Packs/Day Years Used Date Smoking Tobacco: Former Cigars Smokeless Tobacco: Never Tobacco Cessation:Counseling Given: Yes Comments:occasional cigar, 1 x week - social Alcohol Use Standard Drinks/Week Comments Not Currently 1 (1 standard drink = 0.6 oz pur e alcohol) socially with cigars PHQ-2 Answer Date Recorded PHQ-2 TOTAL SCORE 1 05/29/2024 Social Connections Answer Date Recorded Do you often feel lonely or isolated from those around you? 0 05/24/2024 Financial Resource Strain Answer Date R ecorded Difficulty of Paying Living Expenses 3 05/24/2024 Difficulty of Paying Living Expenses Not on file 05/24/2024 Food Insecurity Answer Date Recorded Do you worry your food will run out before you are able to buy more? 1 05/24/2024 Transportation Needs Answer Date Record ed Does lack of transportation keep you from medica l appointments? 1 05/24/2024 Does lack of transportation keep you from work, meetings or getting things that you need? 1 05/24/2024 Housing Stability Answer Date Recorded What is your housing situation today? 1 05/24/2024 Utilities Answer Date Recorded Do you have trouble paying f or utilities (for example, heat, electricity, water, phone)? 1 05/24/2024 Sex and Gender Information Value Date Recorded Sex Assigned at Not on file Legal Sex Male 7:27 PM CDT Gender Identity Not on file Sexual Orientation Not on file Obstetrics History Last Filed Vital Signs Vital Sign Reading Time Taken Comments Blood Pressure 134/73 08/01/2024 12:50 PM CDT Pulse 88 08/01/2024 12:50 PM CDT Temperature 37 C (98.6 F) 03/09/2022 10:28 AM CDT Respiratory Rate 14 06/05/2016 10:42 AM PLANETARIUM SKY SHOW TECHNICIAN Oxygen Saturation 97% 08/01/2024 12:50 PM CDT Inhaled Oxygen Concentration - - Weight 86.2 kg (190 lb) 08/01/2024 12:50 PM CDT Height 179.5 cm (5' 10.67) 05/29/2024 1:[address] Body Mass Index 26.75 05/29/2024 1:00 PM PLANETARIUM SKY SHOW TECHNICIAN Plan of Treatment Health Maintenance Due Date Last Done Comments COVID-19 vaccine series ( season) 2024 06/05/2023, 02/07/2022, 10/25/2021, Additional history exists Influenza Vaccine (Season Ended) 2025 05/11/2023, 02/07/2022, 02/03/2020 BMI (ht and wt on same day) for age 18+ 05/29/2025 05/29/2024, 05/11/2023, 04/28/2022, Additional history exists Depression screening for age 12+ 05/29/2025 05/29/2024, 09/06/2023, 09/06/2023, Additional history exists Medicare Wellness for age 65+ 05/30/2025, 05/11/2023, 04/28/2022, Additional history exists Colonoscopy through age 75 05/26/202605/26, 05/26/2021, 03/21/2016, Additional history exists RSV vaccine for adults or (1 - 1-dose 75+ series) 01/21/2027 Lipids for age 45-75 05/29/2029 05/29/2024, 01/04/2023, 03/10/2021 Tetanus booster 03/10/2031 03/10/2021, 11/18/2010 Tdap Completed 11/18/2010 Pneumococcal series for age 50+ Completed 9, 05/23/2017 AAA screening age 65-74 Completed 03/03/2020 Zoster (shingles) series for age 50+ Completed 05/28/2020, 03/02/2020, 02/06/2012 Hepatitis C screening for ag e 18-79 Completed 03/10/2021 Procedures Procedure Name Priority Date/Time Associated Diagnosis Comments BASIC METABOLIC PANEL Routine 08/01/2024 1:19 PM CDT Thoracic degenerative disc disease Chronic bilateral low back pain without sciatica PSA TOTAL Routine 08/01/2024 1:17 PM CDT LIPID PANEL W REFLEX MEASURED LDL Routine 05/29/2024 1:51 PM PLANETARIUM SKY SHOW TECHNICIAN Mixed hyperlipidemia COLONOSCOPY 05/26/2021 8:54 AM PLANETARIUM SKY SHOW TECHNICIAN ANTI HCV Routine 03/10/2021 9:44 AM CDT Need for hepatitis C screening test from Last 3 Months or Most Recently Relevant to Health Maintenance Results * (ABNORMAL) BASIC METABOLIC PANEL (08/01/2024 1:19 PM CDT) GLUCOSE 118(H) 65 - 99 mg/dL [facility] agustina Marrero Comment: Fasting reference interval For someone without known diabetes, a glucose value between 100 and 125 mg/dL is consistent with prediabetes and should be confirmed with a follow-up test. UREA NITROGEN (BUN) 21 7 - 25 mg/dL [facility] CREATININE 1.08 0.70 - 1.28 mg/dL [facility] EGFR 73 > OR = 60 mL/min/1. 73m2 [facility] Marre[facility] BUN/CREATININE RATIO SEE NOTE: 6 - 22 (calc) [facility] Comment: Not Reported: BUN and Creatinine are within reference range. SODIUM 141 135 - 146 mmol/L [facility] POTASSIUM 4.4 3.5 - 5.3 mmol/L [facility] CHLORIDE 105 98 - 110 mmol/L [facility] CARBON DIOXIDE 26 20 - 32 mmol/L [facility] ELECTROLYTE BALANCE 10 7 - 17 mmol/L (calc) [facility] CALCIUM 9.4 8.6 - 10.3 mg/dL [facility] Blood BLOOD SPECIMEN / Unknown 08/01/2024 1:19 PM CDT 08/01/2024 1:19 PM CDT Adei Shaqra DO CHEMISTRY Final Result Performing Organization Address [facility]/ZIP Co de Phone Number [employer] [address] [address], [place] [phone] [address] * PSA TOTAL (08/01/2024 1:17 PM CDT) PSA, TOTAL 1.95 < OR = 4.00 ng/mL [facility] Comment: The total PSA value from this assay system is standardized against the WHO standard. The test result will be approximately 20% lower when compared to the equimolar-standardized total PSA (Bismark Ferguson). Comparison of serial PSA results should be interpreted with this fact in mind. This test was performed using the Siemens chemiluminescent method. Values obtained from different assay methods cannot be used interchangeably. PSA levels, regardless of value, should not be interpreted as absolute evidence of the presence or absence of disease. 08/01/2024 1:17 PM CDT 08/01/2024 1:18 PM CDT Adei Nirmalq DO CHEMISTRY Final Result Performing Organization Address [facility]/ZIP Co de Phone Number [employer] [facility] [address] [place] [address], [place] [phone] [facility] [address] [place] [address] * (ABNORMAL) LIPID PANEL W REFLEX MEASURED LDL (05/29/2024 1:51 PM PLANETARIUM SKY SHOW TECHNICIAN) [facility] Signature CHOLESTEROL, TOTAL 127 <200 mg/dL [facility] HDL CHOLESTEROL 36(L) > OR = 40 mg/dL [facility] TRIGLYCERIDES 221(H) <150 mg/dL [facility] Comment: If a non-fasting specimen was collected, consider repeat triglyceride testing on a fasting specimen if clinically indicated. Tracey et al. J. of Clin. Lipidol. 2015;9:129-169. LDL-CHOLESTEROL 63 mg/dL (calc) [facility] okatie Marrero Comment: Reference range: <100 Desirable range <100 mg/dL for primary prevention; <70 mg/dL for patients with CHD or diabetic patients with > or = 2 CHD risk factors. LDL-C is now calculated using the Alber-Dasha calculation, which is a validated novel method providing better accuracy than the Friedewald equation in the estimation of LDL-C. Alber SCHMIDT et al. SEA. 2013;310(19): 8167-0280 (http://education.Queralt/faq/CWY976) CHOL/HDLC RATIO 3.5 <5.0 (calc) [facility] NON HDL CHOLESTEROL 91 <130 mg/dL (calc) [facility] Marrero Comment: For patients with diabetes plus 1 major ASCVD risk factor, treating to a non-HDL-C goal of <100 mg/dL (LDL-C of <70 mg/dL) is considered a therapeutic option. Blood BLOOD SPECIMEN / Unknown 05/29/2024 1:51 PM PLANETARIUM SKY SHOW TECHNICIAN 05/29/2024 1:52 PM PLANETARIUM SKY SHOW TECHNICIAN us Teofilo Chau DO CHEMISTRY Final Result [employer] [facility] [address] [facility] [place] [address], [facility] [address] [place] [address] * COLONOSCOPY (05/26/2021 8:54 AM PLANETARIUM SKY SHOW TECHNICIAN) 05/26/2021 8:54 AM PLANETARIUM SKY SHOW TECHNICIAN Narrative Transcriptions Alber Bonilla MD - 05/26/2021 10:03 AM CST Patient Name: Corey Patterson Procedure Date: 05/26/2021 Gender: Male Date of : 1950 Admit Type: Outpatient Procedure: Colonoscopy Proceduralist: Alber Bonilla MD , Lizzie Ellis (Nurse), Macrina Escalera (Nurse) Indications/Pre-Op Diagnosis: High risk colon cancer surveillance:Personal history of adenoma less than 10 mm in size, Last colonoscopy: March 2016 Medications: Fentanyl 100 micrograms IV, Midazolam 4 mgIV, (medications documented represent totaldosages for multiple procedures), The level ofsedation administered was moderate Procedure Description: The patient had risks, benefits and alternatives explained to andgave informed consent. The patient had a stable cardiopulmonary status and judged an adequate candidate for conscious sedation. The colonoscope was passed through the anus and advanced to thececum, identified by appendiceal orifice and ileocecal valve. Thecolonoscopy was performed without difficulty. The patient tolerated the procedure well. The quality of the bowel preparation was good. The ileocecal valve, appendiceal orifice, and rectum were photographed. Complications: No immediate complications. Estimated Blood Loss & Specimen: Estimated blood loss: none. Specimen collected - Yes and sent to Laboratory Findings: The perianal and digital rectal examinations were normal. Scattered small and large-mouthed diverticula were found in thesigmoid colon and descending colon. Two sessile polyps were found in the cecum. The polyps were 4 mm in size. These polyps were removed with a cold snare. Resection and retrieval were complete. The exam was otherwise without abnormality on direct and retroflexion views. Impressions/Post-Op Diagnosis: - Diverticulosis in the sigmoid colon and in the descending colon. - Two 4 mm polyps in the cecum, removed with a cold snare. Resectedand retrieved. - The examination was otherwise normal on direct and retroflexionviews. Recommendation: - Patient has a contact number available for emergencies. The signsand symptoms of potential delayed complications were discussed with the patient. Return to normal activities tomorrow. Written discharge instructions were provided to the patient. - Resume previous diet. - Continue present medications. - Await pathology results. - Repeat colonoscopy is recommended. The colonoscopy date will be determined after pathology results from today's exam become available for review. Moderate Sedation: Moderate (conscious) sedation was administered by the endoscopy nurse and supervised by the endoscopist. The following parameters were monitored: oxygen saturation, heart rate, respiratory rate, blood pressure, adequacy of pulmonary ventilation and reponse to care. Please refer to the patient's medical record flowsheets and nursing notes for moderate sedation details. Total physician intraservice time was 31 minutes. Alber Bonilla MD 05/26/2021 10:02:51 AM This report has been signed electronically. Note Initiated On: 05/26/2021 8:54 AM Procedure Code(s): --- Professional --- 41149, Colonoscopy, flexible; with removalof tumor(s), polyp(s), or other lesion(s) bysnare technique Diagnosis Code(s): --- Professional --- Z86.010, Personal history of colonicpolyps K63.5, Polyp of colon K57.30, Diverticulosis of large intestine without perforation or abscess withoutbleeding CPT copyright 2020 [employer]. All rights reserved. The codes documented in this report are preliminary and upon fire department marine engineer reviewmay be revised to meet current compliance requirements. Scope In: 9:33:51 AM Scope Withdrawal Time 0 hours 8 minutes 29 seconds Scope Out: 9:52:51 AM us Alber Bonilla MD PROCEDURE ORD Final Res ult * ANTI HCV (03/10/2021 9:44 AM CDT) HEPATITIS C ANTIBODY Non-React yulia Non-React yulia 03/10/2021 5:18 PM CDT [facility] Comment:Antibodies to HCV no t detected; does not exclude the possibility of exposure to HCV. Blood BLOOD SPECIMEN / Unknown Butterfly / Unknown 03/10/2021 9:44 AM CDT 03/10/2021 9:44 AM CDT us Teofilo Chau DO SEND OUTS Final Result [facility] [address] [place] [address], from Last 3 Months or Most Recently Relevant to Health Maintenance Insurance [employer] [place] ONLY Care Teams Rn Provider Relations Relationship Specialty Start Date End Date Teofilo [place] [address] PCP - General Family Practice 05/24/21
--- OUTSIDE RECORDS SUMMARY | 2024-09-02 15:36 | XMS_ITS | Data Portability ---
Author Organization [facility], [facility] Address [address] [place] [address] Care Team Providers Care State Attorney Name Role Phone LORI CABRALES Primary Care Provider Assessment No assessment recorded. Plan of Treatment Reminders Order Date Submit Date Provider Last Modified By Organization Details Last Modified Time Details Appointments None recorded. Lab PSA, total, serum or plasma 2021 022 bcubias Not available 08:48:05 Referral None recorded. Procedures None recorded. Surgeries None recorded. Imaging None recorded. Medication Orders tadalafil 5 mg tablet 2021 022 [id number] [facility] [employer], [address], [place], [address], 16:15:06 tadalafil 5 mg tablet 2021 022 [email or web address] Not available 11:12:13 Patient TargetsNo targets recorded. Patient InstructionsNo instructions recorded. Reason for Referral None Reported. Results Created Date Observation Date Name Description Value Unit Range Abnormal Flag Note LastModifiedBy Organization Detail LastModifiedTime 02/08/20 22 02/06/2022 bladd er scan (PROC ) No observ ation record ed. BARCODE Not Available 2021 08:12:50 Result Notes None recorded. Procedures Surgical History Date Name Laterality Status Provider Name and Address Organization Details Recorded Time Bladder Scan completed Vini Magallanes MD [address], [place], [address], [facility] 02/06/2022 15:58:08 operative procedure on knee completed Vini Magallanes MD [address], [place], [address], [facility] 02/06/2022 15:57:30 Imaging Results Imaging Date Name Status LastModified by Organiz ation Details LastModified Time 02/06/2022 bladder scan (PROC) completed BARCODE Information not available 02/07/2022 08:12:50 Procedure Notes None recorded. Medical Equipment None Reported. Allergies No known drug allergies Medications Name Sig Start Date Stop Date Status Note LastModified by Organization Details LastModified Time atorvastatin 20 mg tablet TAKE 1 TABLET BY MOUTH AT BEDTIME active Not Available Not Available No t Available Lidocaine Viscous 2 % mucosal solution SWISH AND SWALLOW 15 ML BY MOUTH EVERY 6 HOURS IF NEEDED (GASTRITI S). active Not Available Not Available No t Available tolterodine ER 4 mg capsule,extend ed release 24 hr TAKE 1 CAPSULE (4 MG) BY MOUTH ONCE DAILY. active Not Available Not Available No t Available sucralfate 1 gram tablet TAKE 1 TABLET BY MOUTH FOUR TIMES DAILY BEFORE MEALS AND AT BEDTIME FOR 7 DAYS. active Not Available Not Available No t Available tamsulosin 0.4 mg capsule TAKE 2 CAPSULES BY MOUTH ONCE DAILY AFTER A MEAL. active Not Available Not Available No t Available esomeprazole magnesium 40 mg capsule,delaye d release TAKE 1 CAPSULE BY MOUTH ONCE DAILY BEFORE A MEAL. active Not Available Not Available No t Available ondansetron [address] 1 TABLET ON THE TONGUE EVERY 8 HOURS IF NEEDED FOR NAUSEA/VO MITING. active Not Available Not Available No t Available lisinopril 2.5 mg tablet TAKE 1 TABLET BY MOUTH ONCE DAILY. active Not Available Not Available No t Available tadalafil 5 mg tablet TAKE 1 TABLET BY MOUTH EVERY DAY active Not Available Not Available No t Available Vitals Date Recorded Body height Body mass index (BMI) Body weight Provider Name and Address Organization Details Last Updated DateTime 02/06/2022 177.8 cm 27.3 kg/m2 36754.55 g Vini Magallanes MD [address], [place], [address], [facility] 02/06/2022 15:55:17 Social History Question Answer Notes LastModified by Organizat ion Details LastModified Time Tobacco Smoking Status Never Smoker Vini Magallanes MD [address], [place], [address], [facility] [place] [facility] 02/06/2022 15:57:03 What Is Your Level Of Alcohol Consumption? Occasional Information not available 02/06/2022 What Was The Date Of Your Most Recent Tobacco Screening? 02/06/2022 Information not available 02/06/2022 Sex: Unknown Functional Status None recorded. Mental Status None recorded. Family History Nothing Reported. Medical History Condition Response High Blood Pressure Y High Cholesterol Y Past Encounters Encounter ID Performer Location Encounter Start Date Encounter Closed Date Diagnosis/Indication Diagnosis SNOMED-CT Code Diagnosis ICD10 Code Diagnosis Note [id number] Vini Magallaens MD [facility] [address] [address] 02/06/2022 15:44:12 02/08/2022 13:09:32 Increased frequency of urination 621961316 R35.0 1. Urinary frequency- bladder empties well (PVR = 6 mL)- discussed options - oral medication , bladder Botox, or electrical stimulatio n (PTNS or Interstim) - continue Tolterodin e LA 4 mg daily(back pain may be contributi ng)- Follow-up in 1 year with Bladder scan Lower urin tatyana tract symptoms due to benign prostatic hypertrophy [id number] 9101 N40.1 2. BPH- hold Flomax 0.8 mg daily- try Cialis 5 mg daily - if no improvemen t, restart Flomax- Follow-up in 1 year with PSA, UA, and Bladder scan Health Concerns Section Related Observation LastModified by Organization Detai ls LastModified Time None Recorded Concern Status LastModified by Organization Details LastModified Time None Recorded Advance Directives Directive None Recorded Payers Encounter Date Sequence Insurance Name Policy Number Policy Mayfield Covered Member ID Mayfield Member ID Guarantor Name 02/06/2022 1 [facility] [id number] Corey Patterson [id number] Corey Patterson Notes Date Note Type Note Provider Name and Address Organization Details Recorded Time 02/06/2022 text/html 72 yo male with 10-15 years of urinary frequency, urgency, and incontinence. He has tried Vesicare 10 mg daily (some improvement), Myrbetriq 50 mg daily (minimal improvement), Oxybutynin 5 mg BID, Oxybutynin ER 15 mg daily (no improvement), and Tovias 8 mg daily (no change).He is currently on Detrol LA 4 mg daily and Flomax 0.8 mg daily.10/11/20 - He presents for follow-up on urination. He still has occasional urgency with leakage. He denies hesitancy and dysuria. He voids every 1-3 hours during the day and 0-2x/night. 02/06/22 - He presents for follow-up urination. He reports significant lumbar back pain over the past few weeks. He voids every 2-3 hours during the day and 0-5x/night. He reports occasional urgency - denies dysuria or weak stream.He states he has tried Cialis 10 mg in the past for ED (caused headaches).- PVR = 6 mL ____PSA - 1.3 (12/23/15)- 1.3 (12/26/17)- 1.5 (12/05/18)- 2.0 (12/16/19) Vini Magallanes MD [address] [place] [address],[facility] [address], [place], [address], [place] [facility] [place] [facility] 02/06/2022 19:12:23
--- NOTE | 2024-09-02 16:06 | ED.LOWEXIN ---
HPI - Extremity Injury (Lower) General Time Seen by Provider: 16:06 Date Seen: 09/02/24 Chief Complaint: Extremity Pain/Injury, Lower Stated Complaint: R leg pain Time Seen by Provider: 09/02/24 15:48 Source: patient, RN notes reviewed and old records reviewed Mode of arrival: ambulatory Limitations: no limitations History of Present Illness HPI Narrative: 74-year-old male who comes in today with 2 days of right leg pain. Patient notes pain from the right buttock down the right lateral and anterior lateral leg. This is worse with standing and lying flat, better if he walks bent forward. No numbness or tingling the leg, no new bowel or bladder incontinence. No known injury. Related Data Home Medications ?Medication ?Instructions ?Recorded ?Confirmed atorvastatin 20 mg tablet 20 mg PO HS 02/11/22 09/02/24 esomeprazole magnesium 20 mg 40 mg PO DAILY 02/11/22 09/02/24 capsule,delayed release (Nexium) lisinopril 2.5 mg tablet 2.5 mg PO DAILY 02/11/22 09/02/24 Previous Rx's ?Medication ?Instructions ?Recorded cyclobenzaprine 10 mg tablet 10 mg PO TID PRN muscle spasm #10 09/02/24 tabs prednisone 10 mg tablets in a dose See Rx Instructions PO .COMPLEX 09/02/24 pack #31 ea Allergies Allergy/AdvReac Type Severity Reaction Status Date / Time No Known Drug Allergies Allergy Verified 09/02/24 15:29 [facility] Social History Smoking Status: Light tobacco smoker What tobacco products do you use: cigars Do you use any of these nicotine containing products: None Second hand tobacco smoke exposure: No How often do you have a drink containing alcohol: 2-3 times a week How many standard drinks containing alcohol do you have on a typical day: 1 or 2 How often do you have six or more drinks on one occasion: Never AUDIT-C Alcohol total score: 3 Non-prescribed substance use: denies use Exam Narrative: Exam Narrative: General: well nourished , NAD Head: Atraumatic and normocephalic ENT: External ears and external nose are normal Eyes: Conjunctiva clear, pupils are equal reactive, external ocular motions are intact Neck: Full spontaneous range of motion of the neck Lungs: No respiratory distress Musculoskeletal: Mild tenderness of the right SI area. No tenderness to palpation of the thigh. Pain with straight leg raise, no pain within sternal or external rotation of the hip Neurologic: No gross focal neurologic deficits Skin: No rashes Psych: Mood and affect are appropriate Const: Vital Signs, click to edit/add: Vital Signs - 24 hr 09/02/24 15:32 Temperature 98.4 F Pulse Rate [Pulse Oximeter] 84 Respiratory Rate 20 Blood Pressure [Ri ght Upper Arm] 176/89 H Pulse Oximetry 99 Oxygen Delivery Me thod Room Air Course Course ED Course: Reviewed prior medical record most recent office visit from August 01 which was for urinary concerns, frequent bathroom visits with small output, some nighttime urination, some leakage, Continued on desmopressin and Flomax. also at that visit note chronic history of chronic back pain for which he takes Celebrex. Patient seen examined, presents today with right buttock and thigh pain starting 2 days ago, no known injury. Pain is worse with standing lying down, better if he is bent over or sitting. On exam here, patient appears fairly comfortable except when he tries to move, walks bent over with the back in about 20-30 degrees, has difficulty standing up straight in when he does try stand up straight flexes the hip. Pain with straight leg raise, no pain with hip Provocative movements. Patient's symptoms are most consistent with radicular pain or sciatica. He does have a history of urge incontinence which is been a longstanding problem and does not seem changed today, no midline back pain or tenderness to percussion , no saddle anesthesia to suggest spinal epidural abscess or cauda equina syndrome. Patient was started on oxycodone, Flexeril, and prednisone burst and taper, follow-up with primary care for further evaluation and physical therapy. Vital Signs Vital signs: Initial Vital Signs Temperature 98.4 F 09/02/24 15:32 Temperature Source Temporal Artery Scan 09/02/24 15:32 Pulse Rate 84 09/02/24 15:32 Respiratory Rate 20 09/02/24 15:32 Blood Pressure 176/89 H 09/02/24 15:32 Blood Pressure Mean 118 H 09/02/24 15:32 Pulse Oximetry 99 09/02/24 15:32 Oxygen Delivery Method Room Air 09/02/24 15:32 Vital Signs Temperature 98.4 F 09/02/24 15:32 Pulse Rate 84 09/02/24 15:32 Respiratory Rate 20 09/02/24 15:32 Blood Pressure 176/89 H 09/02/24 15:32 Pulse Oximetry 99 09/02/24 15:32 Oxygen Delivery Method Room Air 09/02/24 15:32 Temperature 98.4 F 09/02/24 15:32 Pulse Rate 84 09/02/24 15:32 Respiratory Rate 20 09/02/24 15:32 Blood Pressure 176/89 H 09/02/24 15:32 Pulse Oximetry 99 09/02/24 15:32 Oxygen Delivery Method Room Air 09/02/24 15:32 Medications Administered Medications: Discontinued Medications Generic Name Dose Route Start Last Admin Trade Name Freq PRN Reason Stop Dose Admin Ketorolac Tromethamine 30 mg 09/02/24 16:19 09/02/24 16:27 Ketorolac 30 Mg/Ml Inj IM 09/02/24 16:20 30 mg ONCE ONE Administration Discharge Plan Discharge Clinical Impression: Sciatica Patient Disposition: Home, Self-Care Condition: Stable Instructions: Sciatica (ED) Additional Instructions: Continue Celebrex Start prednisone burst and taper as prescribed Take oxycodone and Flexeril as prescribed. Do not drive while your taking these medications. Follow-up with your primary care provider next week to discuss physical therapy and further treatment. You may also follow-up in the [facility] ([phone]) or with orthopedicss in the [facility] or [facility]. Activity Level: Activity as Tolerated Discharge Diet: Regular Prescriptions: New cyclobenzaprine 10 mg tablet 10 mg PO TID PRN (Reason: muscle spasm) Qty: 10 0RF prednisone 10 mg tablets,dose pack See Rx Instructions .ROUTE .COMPLEX Qty: 31 0RF Rx Instructions: Take 40 mg daily for 3 days, then 30 mg daily for 3 days, then 20 mg daily for 3 days, then 10 mg daily for 3 days, then 5 mg daily for 2 days No Action atorvastatin 20 mg tablet 20 mg PO HS Patient Comments: TAKE 1 TABLET BY MOUTH AT BEDTIME lisinopril 2.5 mg tablet 2.5 mg PO DAILY Patient Comments: TAKE 1 TABLET BY MOUTH ONCE DAILY. esomeprazole magnesium [Nexium] 20 mg capsule,delayed release(DR/EC) 40 mg PO DAILY Follow Up/Referrals: OSCAR HARDIN DO [Primary Care Provider] - Stand Alone Forms: MyHealth Info Instructions
[2024-09-02] MEDS: KETOROLAC 30 MG/ML inj IM (16:27)
--- OUTSIDE RECORDS SUMMARY | 2024-09-02 16:50 | XMS_ITS | Clinical Summary ---
Author Organization [facility] Address [address] [place] [address] Care Team Providers Care Assistant Hall Director Name Role Phone Pierre Evans MD Primary Care Provider [phone] Source Comments You are receiving this document as you are listed as the primary care provider,follow-up provider, or the patient has been referred to you for consultation.This is in compliance with the Medicare and[facility] EHR Incentive Program,which states Providers who transition their patient to another setting of careor provider of care or refers their patient to another provider of care shouldprovide summary care record for each transition of care or referral. 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% 04/01/2012 4:45 PM [employer] O[employer]ATOR Inhaled Oxygen Concentration - - Weight 87.1 [...] consultation with vascular surgery Pierre Evans MD [facility] US Final Resul t * (ABNORMAL) Lipid Panel - LDLD If Trig High (12/16/2019 9:40 AM CDT) Cholesterol 132 0 - 199 mg/dL 12/16/2019 2:39 PM CDT [facility] Triglyceride 131 <=149 mg/dL 12/16/2019 2:39 PM CDT [facility] HDL Cholesterol 31(L) >=40 mg/dL 0 2:39 PM CDT [facility] LDL, Calculated 75 <130 mg/dL 0 2:39 PM CDT [facility] Non HDL Chol, Calculated 101 mg/dL 12/16/2019 2:39 PM CDT [facility] Cholesterol/HDL Ratio 4.3 12/16/2019 2:39 PM CDT [facility] Hours Fasting 12 12/16/2019 2:39 PM CDT [facility] (PN) Blood Venipuncture / Unknown 12/16/2019 9:40 AM CDT 12/16/2019 9:40 AM CDT Pierre Evans MD LAB_1 Final Resul t [facility] [address] [place] [address], [facility] (PN) [address] [place] [address], [facility] [phone] * Hepatitis C Virus Bren with Reflex (12/25/2016 9:01 AM CDT) Hepatitis C Antibody Nonreactive Nonreactive PN SOFT 12/25/2016 9:01 AM CDT 12/25/2016 12:08 PM CDT Narrative PN KELLY - 12/25/2016 12:51 PM CDT Performed at [facility], [address] [place] [address] CLIA number [id number] Pierre Evans MD LAB_1 Final Resul t [facility] [address] [place] [address] from Last 3 Months or Most Recently Relevant to Health Maintenance Insurance MEDICARE MANAGED CARE [facility] [place] Care Teams Assistant Hall Director Relationship Specialty Start Date End Date Pierre Evans MD [address] [facility] [place] [address] [facility] - General 08/23/10
--- OUTSIDE RECORDS SUMMARY | 2024-09-02 16:50 | XMS_ITS | Clinical Summary ---
Author Organization [facility] Address [address] [place] [address] Care Team Providers Care Loop Cutter Name Role Phone Teofilo Chau DO Primary Care Provider [phone] Allergies No known active allergies Medications multivitamin [...] Description 08/01/2024 12:50 PM CDT Office Visit [facility] [address] [place] [address] Teofilo Chau, Incontinence 07/31/2024 Travel 07/04/2024 Refill [facility] [address] [place] [address] Teofilo Chau DO Refill Request (Atorvastatin, Esomeprazole Delayed Release Capsule) 06/30/2024 Refill [facility] [address] [place] [address] Teofilo Chau DO Refill Request (Tamsulosin) from Last 3 Months Immunizations Immunization Administration Dates Next Due COVID-19 VACCINE SPIKEVAX (M ODERNA 50MCG/0.5ML) 12YO+ PFS 06/05/2023 COVID-19 vaccine (XAware NTech 30mcg/0.3mL) 12YO+ BIVALENT PF, MDV 02/07/2022 COVID-19 vaccine (Pfizer-Bio NTech 30mcg/0.3mL) 12YO+ SANTANA-SUCROSE PF, MDV 10/25/2021 COVID-19 vaccine ([employer] 30mcg/0.3mL) P F, MDV 03/23/2021 HepA-HepB (Twinrix) [...] CDT Respiratory Rate 14 06/05/2016 10:42 AM MUFF WINDER Oxygen Saturation 97% 08/01/2024 12:50 PM CDT Inhaled Oxygen Concentration - - Weight 86.2 kg (190 lb) 08/01/2024 12:50 PM CDT Height 179.5 cm (5' 10.67) 05/29/2024 1:[address] Body Mass Index 26.75 05/29/2024 1:00 PM MUFF WINDER Plan of Treatment Health Maintenance Due Date [...] REFLEX MEASURED LDL Routine 05/29/2024 1:51 PM MUFF WINDER Mixed hyperlipidemia COLONOSCOPY 05/26/2021 8:54 AM MUFF W[employer]ER ANTI HCV Routine 03/10/2021 9:44 AM CDT Need for hepatitis C screening test from Last 3 Months or Most Recently Relevant to Health Maintenance Results * (ABNORMAL) BASIC METABOLIC PANEL (08/01/2024 1:19 PM CDT) GLUCOSE 118(H) 65 - 99 mg/dL [facility] Comment: Fasting reference interval For someone without known diabetes, a glucose value between 100 and 125 mg/dL is consistent with prediabetes and should be confirmed with a follow-up test. UREA NITROGEN (BUN) 21 7 - 25 mg/dL [facility] CREATININE 1.08 0.70 - 1.28 mg/dL [facility] EGFR 73 > OR = 60 mL/min/1. 73m2 [facility] BUN/CREATININE RATIO SEE NOTE: 6 - 22 (calc) [facility] Comment: Not Reported: BUN and Creatinine are within reference range. SODIUM 141 135 - 146 mmol/L [facility] POTASSIUM 4.4 3.5 - 5.3 mmol/L [facility] CHLORIDE 105 98 - 110 mmol/L [facility] [...] DO CHEMISTRY Final Result Performing Organization Address [facility]/ZIP Co de Phone Number [facility] [address] [address], [place] [phone] [address] * PSA TOTAL (08/01/2024 1:17 PM CDT) PSA, TOTAL 1.95 < OR = 4.00 ng/mL [facility] Comment: The total PSA value from this assay system is standardized against the WHO standard. The test result will be approximately 20% lower when compared to the equimolar-standardized total PSA ([place]). Comparison of serial PSA results should be [...] DO CHEMISTRY Final Result Performing Organization Address [facility]/ZIP Co de Phone Number [facility] [address] [place] [address], [place] [phone] [facility] [address] [facility] [place] [address] * (ABNORMAL) LIPID PANEL W REFLEX MEASURED LDL (05/29/2024 1:51 PM MUFF WINDER) [facility] Signature CHOLESTEROL, TOTAL 127 <200 mg/dL [facility] HDL CHOLESTEROL 36(L) > OR = 40 mg/dL [facility] TRIGLYCERIDES 221(H) <150 mg/dL [facility] Comment: If a non-fasting specimen was collected, consider repeat triglyceride testing on a fasting specimen if clinically indicated. Tracey et al. J. of Clin. Lipidol. 2015;9:129-169. LDL-CHOLESTEROL 63 mg/dL (calc) [facility] Comment: Reference range: <100 Desirable range <100 mg/dL for primary prevention; <70 mg/dL for patients with CHD or diabetic patients with > or = 2 CHD risk factors. LDL-C is now calculated using the Alber-Dasha calculation, which is a validated novel method providing better accuracy than the Friedewald equation in the estimation of LDL-C. Alber SCHMIDT et al. SEA. 2013;310(19): 5361-7830 (http://education.ChipSensors/faq/XNM400) CHOL/HDLC RATIO 3.5 <5.0 (calc) [facility] NON HDL CHOLESTEROL 91 <130 mg/dL (calc) [facility] Comment: For patients with diabetes plus 1 major ASCVD risk factor, treating to a non-HDL-C goal of <100 mg/dL (LDL-C of <70 mg/dL) is considered a therapeutic option. Blood BLOOD SPECIMEN / Unknown 05/29/2024 1:51 PM MUFF WINDER 05/29/2024 1:52 PM MU[employer] WINDER us Teofilo Chau DO CHEMISTRY Final Result [facility] [address] [facility] [address], [facility] [address] [facility] [place] [address] * COLONOSCOPY (05/26/2021 8:54 AM MUFF WINDER) 05/26/2021 8:54 AM MUFF WINDER Narrative Transcriptions Alber Bonilla MD - 05/26/2021 [...] 8:54 AM Procedure Code(s): --- Professional --- 54507, Colonoscopy, flexible; with removalof tumor(s), polyp(s), or other lesion(s) bysnare technique Diagnosis Code(s): --- Professional --- Z86.010, Personal history of colonicpolyps K63.5, Polyp of colon K57.30, Diverticulosis of large intestine without perforation or abscess withoutbleeding CPT copyright 2020 [employer]. All rights reserved. The codes documented in this report are preliminary and upon splash line operator reviewmay be revised to meet current compliance requirements. Scope In: 9:33:51 AM Scope Withdrawal Time 0 hours 8 minutes 29 seconds Scope Out: 9:52:51 AM us Alber Bonilla MD PROCEDURE ORD Final Res ult * ANTI HCV (03/10/2021 9:44 AM CDT) HEPATITIS C ANTIBODY Non-React yulia Non-React yulia 03/10/2021 5:18 PM CDT [email or web address] Comment:Antibodies to HCV no t detected; does not exclude the possibility of exposure to HCV. Blood BLOOD SPECIMEN / Unknown Butterfly / Unknown 03/10/2021 9:44 AM CDT 03/10/2021 9:44 AM CDT us Teofilo Chau DO SEND OUTS Final Result [facility] [address] [place] [address], from Last 3 Months or Most Recently Relevant to Health Maintenance Insurance [employer] [place] [place] [address] Care Teams Loop Cutter Relationship Specialty Start Date End Date Teofilo [place] [address] PCP - General Family Practice 05/24/21
== END 2024-09-02 16:50 | disposition home or self-care (01) ==
LOC: ED 16:48
PROVIDERS: Emergency Provider Family Medicine; PCP Student in an Organized Health Care Education/Training Program
DX: M54.31 Sciatica, right side (principal)
CPT/HCPCS: 96372; 99283; 99284; J1885

== ENCOUNTER 2024-09-23 13:22 | Outpatient (CLI) | payer MEDICARE, BC, SELFPAY | END 2024-09-23 13:23 | disposition home or self-care (01) | LOC: INJ CL 13:24 | PROVIDERS: PCP Student in an Organized Health Care Education/Training Program; Visit Provider Family Medicine | DX: M54.16 Radiculopathy, lumbar region (principal); M51.26 Other intervertebral disc displacement, lumbar region | CPT/HCPCS: 64483; J1100; Q9966 ==